=== PATIENT | female | born 1990 | race Two or more races ===

== ENCOUNTER → 2020-03-02 | Outpatient (CLI) | payer BC ==
[2020-03-02 08:53] LABS: Basophils # (auto) 0 10 ^3/uL (0-0.2); Basophils % (auto) 0.5 % (0.0-2.0); Eosinophils # (auto) 0.4 10 ^3/uL (0-0.8); Eosinophils % (auto) 3.8 % (0.0-7.0); Hematocrit 37.1 % (36.0-46.0); Hemoglobin 12.6 g/dL (12.2-16.2); Lymphocytes % (auto) 40.4 % (10.0-50.0); Mean Corpuscular Hemoglobin 29.6 pg (28.0-32.0); Mean Corpuscular Hgb Conc. 33.8 g/dL (32.0-36.0); Mean Corpuscular Volume 87.4 fL (80.0-100.0); Monocytes # (auto) 0.8 10 ^3/uL (0-1.3); Monocytes % (auto) 8.3 % (0.0-12.0); Neutrophils # (auto) 4.6 10 ^3/uL (1.6-8.6); Nucleated Red Blood Cells % 0.1 %; Platelet Count (auto) 341 10^3/uL (140-450); Red Blood Cells 4.25 10^6/uL (4.0-5.20); Red Cell Distribution Width 13.4 % (11.8-14.3); White Blood Cell 9.8 10^3/uL (4.4-10.8)
[2020-03-02 09:10] LABS: Urine Bacteria NONE SEEN /hpf (None Seen); Urine Blood Negative /uL (Negative); Urine Specific Gravity 1.007 (1.001-1.035); Urine WBC <1 /hpf (0 - 5)
[2020-03-02 09:26] LABS: Albumin 3.7 g/dL (3.4-5.0); Potassium 3.6 mmol/L (3.5-5.1)
[2020-03-02 09:31] LABS: BUN/Creatinine Ratio 18.4; Bilirubin, Total 0.4 mg/dL (0.2-1.0); Total Protein 8.4 g/dL (6.4-8.2)
== END | disposition home or self-care (01) ==
LOC: LAB 08:09
PROVIDERS: ATTEND Internal Medicine
DX: E28.2 Polycystic ovarian syndrome (principal); J30.2 Other seasonal allergic rhinitis
CPT/HCPCS: 36415; 80053; 80061; 81001; 83036; 84443; 85025

== ENCOUNTER → 2021-01-17 | Outpatient (CLI) | payer BC ==
[2021-01-17 15:01] LABS: Uric Acid 4.1 mg/dL (2.6-6.0)
[2021-01-17 15:10] LABS: CRP High Sensitivity 1.65 mg/dL (< 0.3)
== END | disposition home or self-care (01) ==
LOC: LAB 14:17
PROVIDERS: ATTEND Internal Medicine
DX: M25.579 Pain in unspecified ankle and joints of unspecified foot (principal)
CPT/HCPCS: 36415; 84550; 85652; 86141; 86225; 86235

== ENCOUNTER → 2021-03-03 | Outpatient (CLI) | payer BC ==
[2021-03-03 12:56] LABS: Urine WBC None Seen /hpf (0 - 5)
[2021-03-03 13:05] LABS: Basophils # (auto) 0 10 ^3/uL (0-0.2); Basophils % (auto) 0.5 % (0.0-2.0); Eosinophils # (auto) 0.2 10 ^3/uL (0-0.8); Eosinophils % (auto) 1.8 % (0.0-7.0); Hematocrit 39.8 % (36.0-46.0); Hemoglobin 13.1 g/dL (12.2-16.2); Lymphocytes # (auto) 3.9 10 ^3/uL (0.4-5.4); Lymphocytes % (auto) 37.1 % (10.0-50.0); Mean Corpuscular Hemoglobin 28.5 pg (28.0-32.0); Mean Corpuscular Volume 86.4 fL (80.0-100.0); Monocytes # (auto) 0.6 10 ^3/uL (0-1.3); Monocytes % (auto) 5.7 % (0.0-12.0); Neutrophils # (auto) 5.8 10 ^3/uL (1.6-8.6); Neutrophils % (auto) 54.9 % (37.0-80.0); Red Cell Distribution Width 13.6 % (11.8-14.3); White Blood Cell 10.6 10^3/uL (4.4-10.8)
[2021-03-03 13:13] LABS: Urine Bacteria NONE SEEN /hpf (None Seen); Urine Blood Negative /uL (Negative); Urine Specific Gravity 1.006 (1.001-1.035)
[2021-03-03 13:35] LABS: Potassium 3.7 mmol/L (3.5-5.1)
[2021-03-03 13:45] LABS: Albumin 3.8 g/dL (3.4-5.0); BUN/Creatinine Ratio 17.4; Bilirubin, Total 0.4 mg/dL (0.2-1.0); CRP High Sensitivity 1.04 mg/dL (< 0.3); Calcium 9.3 mg/dL (8.5-10.1)
[2021-03-03 14:13] LABS: Hepatitis B Surface Antigen Negative (Negative)
[2021-03-03 14:37] LABS: Hepatitis B Core Total AB Negative
== END | disposition home or self-care (01) ==
LOC: LAB 11:44
PROVIDERS: ATTEND Internal Medicine Rheumatology
DX: M05.79 Rheumatoid arthritis with rheumatoid factor of multiple sites without organ or systems involvement (principal); M32.10 Systemic lupus erythematosus, organ or system involvement unspecified
CPT/HCPCS: 36415; 80053; 81001; 82784; 84155; 84165; 85025; 85652; 86141; 86160; 86200; 86334; 86431; 86704; 87340

== ENCOUNTER → 2021-08-19 | Outpatient (CLI) | payer BC | END | disposition home or self-care (01) | LOC: LAB 09:47 | PROVIDERS: ATTEND Internal Medicine | DX: E23.7 Disorder of pituitary gland, unspecified (principal) | CPT/HCPCS: 36415; 82533; 84146; 84443 ==

== ENCOUNTER → 2021-11-10 | Outpatient (CLI) | payer BC ==
[2021-11-10 12:22] LABS: Basophils # (auto) 0.1 10 ^3/uL (0-0.2); Basophils % (auto) 0.6 % (0.0-2.0); Eosinophils # (auto) 0.3 10 ^3/uL (0-0.8); Eosinophils % (auto) 3.5 % (0.0-7.0); Hematocrit 36.8 % (36.0-46.0); Hemoglobin 12.3 g/dL (12.2-16.2); Lymphocytes # (auto) 3.4 10 ^3/uL (0.4-5.4); Lymphocytes % (auto) 37.2 % (10.0-50.0); Mean Corpuscular Hgb Conc. 33.4 g/dL (32.0-36.0); Mean Corpuscular Volume 86.9 fL (80.0-100.0); Monocytes # (auto) 0.7 10 ^3/uL (0-1.3); Monocytes % (auto) 7.3 % (0.0-12.0); Neutrophils # (auto) 4.8 10 ^3/uL (1.6-8.6); Neutrophils % (auto) 51.4 % (37.0-80.0); Nucleated Red Blood Cells % 0.1 %; Red Blood Cells 4.24 10^6/uL (4.0-5.20); Red Cell Distribution Width 13.8 % (11.8-14.3); White Blood Cell 9.3 10^3/uL (4.4-10.8)
== END | disposition home or self-care (01) ==
LOC: LAB 11:54
PROVIDERS: ATTEND Internal Medicine Rheumatology
DX: M05.79 Rheumatoid arthritis with rheumatoid factor of multiple sites without organ or systems involvement (principal)
CPT/HCPCS: 36415; 85025; 85652; 86141

== ENCOUNTER → 2022-01-05 | Outpatient (CLI) | payer BC ==
[2022-01-05 09:12] LABS: CRP High Sensitivity 0.68 mg/dL (< 0.3)
[2022-01-05 09:52] LABS: Folate (Folic Acid) 16.03 ng/mL (5.38-24)
== END | disposition home or self-care (01) ==
LOC: LAB 08:21
PROVIDERS: ATTEND Internal Medicine
DX: E78.5 Hyperlipidemia, unspecified (principal); M06.9 Rheumatoid arthritis, unspecified; M35.00 Sjogren syndrome, unspecified
CPT/HCPCS: 36415; 80061; 82306; 82607; 82746; 83036; 84207; 84443; 85652; 86141

== ENCOUNTER → 2022-01-14 | Outpatient (CLI) | payer BC ==
[2022-01-14 08:51] LABS: Basophils # (auto) 0.1 10 ^3/uL (0-0.2); Basophils % (auto) 0.6 % (0.0-2.0); Eosinophils # (auto) 0.6 10 ^3/uL (0-0.8); Eosinophils % (auto) 6.2 % (0.0-7.0); Hematocrit 35.4 % (36.0-46.0); Hemoglobin 11.6 g/dL (12.2-16.2); Lymphocytes # (auto) 4.2 10 ^3/uL (0.4-5.4); Lymphocytes % (auto) 46.9 % (10.0-50.0); Mean Corpuscular Hemoglobin 28.2 pg (28.0-32.0); Mean Corpuscular Hgb Conc. 32.7 g/dL (32.0-36.0); Monocytes # (auto) 0.8 10 ^3/uL (0-1.3); Monocytes % (auto) 9.1 % (0.0-12.0); Neutrophils # (auto) 3.4 10 ^3/uL (1.6-8.6); Neutrophils % (auto) 37.2 % (37.0-80.0); Red Blood Cells 4.12 10^6/uL (4.0-5.20); Red Cell Distribution Width 13.4 % (11.8-14.3); White Blood Cell 9.1 10^3/uL (4.4-10.8)
[2022-01-14 09:49] LABS: Anion Gap 6 (5-15); BUN/Creatinine Ratio 14.9; Blood Urea Nitrogen 13 mg/dL (7-18); Carbon Dioxide 26 mmol/L (21-32); Chloride 108 mmol/L (98-107); GFR African American 99 mL/min; GFR Non-African American 82 mL/min; Glucose 93 mg/dL (74-106); Potassium 3.9 mmol/L (3.5-5.1); Sodium 140 mmol/L (136-145)
[2022-01-14 09:50] LABS: Alanine Aminotransferase 22 U/L (13-56); Albumin 3.6 g/dL (3.4-5.0); Alkaline Phosphatase 74 U/L (45-117); Aspartate Aminotransferase 14 U/L (15-37); Bilirubin, Total 0.2 mg/dL (0.2-1.0); CRP High Sensitivity 0.7 mg/dL (< 0.3); Calcium 8.9 mg/dL (8.5-10.1); Total Protein 7.8 g/dL (6.4-8.2)
== END | disposition home or self-care (01) ==
LOC: LAB 08:34
PROVIDERS: ATTEND Internal Medicine Rheumatology
DX: M05.79 Rheumatoid arthritis with rheumatoid factor of multiple sites without organ or systems involvement (principal)
CPT/HCPCS: 36415; 80053; 85025; 85652; 86141

== ENCOUNTER → 2022-03-02 | Outpatient (CLI) | payer BC ==
[2022-03-02 08:56] LABS: Basophils # (auto) 0 10 ^3/uL (0-0.2); Basophils % (auto) 0.5 % (0.0-2.0); Eosinophils # (auto) 0.2 10 ^3/uL (0-0.8); Eosinophils % (auto) 3.2 % (0.0-7.0); Hematocrit 37.3 % (36.0-46.0); Hemoglobin 12.4 g/dL (12.2-16.2); Lymphocytes # (auto) 3.5 10 ^3/uL (0.4-5.4); Lymphocytes % (auto) 44.3 % (10.0-50.0); Mean Corpuscular Hemoglobin 28.5 pg (28.0-32.0); Mean Corpuscular Hgb Conc. 33.4 g/dL (32.0-36.0); Mean Corpuscular Volume 85.3 fL (80.0-100.0); Monocytes # (auto) 0.7 10 ^3/uL (0-1.3); Monocytes % (auto) 8.5 % (0.0-12.0); Neutrophils # (auto) 3.4 10 ^3/uL (1.6-8.6); Neutrophils % (auto) 43.5 % (37.0-80.0); Red Blood Cells 4.37 10^6/uL (4.0-5.20); Red Cell Distribution Width 13.7 % (11.8-14.3); White Blood Cell 7.9 10^3/uL (4.4-10.8)
[2022-03-02 10:23] LABS: Free T4 (Free Thyroxine) 1.05 ng/dL (0.89-1.76)
[2022-03-02 10:24] LABS: T3 Total 1.1 ng/mL (0.60-1.81)
== END | disposition home or self-care (01) ==
LOC: LAB 08:40
PROVIDERS: ATTEND Internal Medicine
DX: D64.9 Anemia, unspecified (principal); E03.9 Hypothyroidism, unspecified
CPT/HCPCS: 36415; 84439; 84443; 84480; 85025

== ENCOUNTER → 2022-04-01 | Outpatient (CLI) | payer BC | END | disposition home or self-care (01) | LOC: LAB 08:08 | PROVIDERS: ATTEND Internal Medicine | DX: E03.9 Hypothyroidism, unspecified (principal) | CPT/HCPCS: 36415; 84443; 86376; 86800 ==

== ENCOUNTER → 2022-06-17 | Outpatient (CLI) | payer BC ==
[2022-06-17 10:52] LABS: Basophils # (auto) 0.1 10 ^3/uL (0-0.2); Basophils % (auto) 0.6 % (0.0-2.0); Eosinophils # (auto) 0.3 10 ^3/uL (0-0.8); Eosinophils % (auto) 3.1 % (0.0-7.0); Hematocrit 37.9 % (36.0-46.0); Hemoglobin 12.8 g/dL (12.2-16.2); Lymphocytes % (auto) 35.5 % (10.0-50.0); Mean Corpuscular Hgb Conc. 33.6 g/dL (32.0-36.0); Mean Corpuscular Volume 86.3 fL (80.0-100.0); Monocytes # (auto) 0.9 10 ^3/uL (0-1.3); Monocytes % (auto) 8.1 % (0.0-12.0); Neutrophils % (auto) 52.7 % (37.0-80.0); Nucleated Red Blood Cells % 0.2 %; Red Cell Distribution Width 13.3 % (11.8-14.3); White Blood Cell 11.3 10^3/uL (4.4-10.8)
[2022-06-17 11:07] LABS: Albumin 3.7 g/dL (3.4-5.0); CRP High Sensitivity 0.94 mg/dL (< 0.3); Calcium 8.9 mg/dL (8.5-10.1); Potassium 3.8 mmol/L (3.5-5.1)
[2022-06-17 11:10] LABS: BUN/Creatinine Ratio 13.8; Bilirubin, Total 0.2 mg/dL (0.2-1.0); Total Protein 8.7 g/dL (6.4-8.2)
== END | disposition home or self-care (01) ==
LOC: LAB 10:25
PROVIDERS: ATTEND Internal Medicine Rheumatology
DX: M35.9 Systemic involvement of connective tissue, unspecified (principal); Z79.899 Other long term (current) drug therapy
CPT/HCPCS: 36415; 80053; 85025; 85652; 86141

== ENCOUNTER → 2022-07-01 | Outpatient (CLI) | payer BC | END | disposition home or self-care (01) | LOC: LAB 10:57 | PROVIDERS: ATTEND Internal Medicine | DX: E03.9 Hypothyroidism, unspecified (principal) | CPT/HCPCS: 36415; 84443 ==

== ENCOUNTER → 2022-09-02 | Outpatient (CLI) | payer BC ==
[2022-09-02 10:34] LABS: Basophils # (auto) 0 10 ^3/uL (0-0.2); Basophils % (auto) 0.3 % (0.0-2.0); Eosinophils # (auto) 0.6 10 ^3/uL (0-0.8); Eosinophils % (auto) 4.9 % (0.0-7.0); Hematocrit 37.3 % (36.0-46.0); Hemoglobin 12.3 g/dL (12.2-16.2); Lymphocytes # (auto) 4.9 10 ^3/uL (0.4-5.4); Lymphocytes % (auto) 41.9 % (10.0-50.0); Mean Corpuscular Volume 87.9 fL (80.0-100.0); Monocytes # (auto) 0.8 10 ^3/uL (0-1.3); Monocytes % (auto) 6.6 % (0.0-12.0); Neutrophils # (auto) 5.4 10 ^3/uL (1.6-8.6); Neutrophils % (auto) 46.3 % (37.0-80.0); Nucleated Red Blood Cells % 0.1 %; Red Blood Cells 4.24 10^6/uL (4.0-5.20); Red Cell Distribution Width 13.3 % (11.8-14.3); White Blood Cell 11.6 10^3/uL (4.4-10.8)
[2022-09-02 11:11] LABS: Follicle Stimulating Hormone 6.96 IU/L (SEE BELOW); Leuteinizing Hormone 10.5 IU/L
== END | disposition home or self-care (01) ==
LOC: LAB 10:12
PROVIDERS: ATTEND Obstetrics & Gynecology
DX: N92.6 Irregular menstruation, unspecified (principal)
CPT/HCPCS: 36415; 82670; 83001; 83002; 84403; 84443; 85025

== ENCOUNTER → 2022-10-21 | Outpatient (CLI) | payer BC ==
[2022-10-21 12:26] LABS: Basophils # (auto) 0 10 ^3/uL (0-0.2); Basophils % (auto) 0.4 % (0.0-2.0); Eosinophils # (auto) 0.2 10 ^3/uL (0-0.8); Eosinophils % (auto) 2.6 % (0.0-7.0); Hematocrit 37.9 % (36.0-46.0); Hemoglobin 12.9 g/dL (12.2-16.2); Lymphocytes % (auto) 32.9 % (10.0-50.0); Mean Corpuscular Hemoglobin 29.7 pg (28.0-32.0); Mean Corpuscular Volume 87.2 fL (80.0-100.0); Monocytes # (auto) 0.8 10 ^3/uL (0-1.3); Neutrophils # (auto) 5.1 10 ^3/uL (1.6-8.6); Neutrophils % (auto) 55.1 % (37.0-80.0); Red Blood Cells 4.34 10^6/uL (4.0-5.20); Red Cell Distribution Width 13.3 % (11.8-14.3); White Blood Cell 9.2 10^3/uL (4.4-10.8)
[2022-10-21 12:31] LABS: Urine Bacteria NONE SEEN /hpf (None Seen); Urine Blood Negative /uL (Negative); Urine Specific Gravity 1.017 (1.001-1.035); Urine WBC 1 /hpf (0 - 5)
[2022-10-21 12:52] LABS: Albumin 3.7 g/dL (3.4-5.0); Calcium 8.7 mg/dL (8.5-10.1)
[2022-10-21 12:56] LABS: BUN/Creatinine Ratio 16.7 (10.0-20.0); Bilirubin, Total 0.5 mg/dL (0.2-1.0); CRP High Sensitivity 0.79 mg/dL (< 0.3); Total Protein 8.5 g/dL (6.4-8.2)
== END | disposition home or self-care (01) ==
LOC: LAB 11:52
PROVIDERS: ATTEND Internal Medicine
DX: D64.9 Anemia, unspecified (principal); M35.9 Systemic involvement of connective tissue, unspecified; Z79.84 Long term (current) use of oral hypoglycemic drugs
CPT/HCPCS: 36415; 80053; 81001; 85025; 85652; 86141

== ENCOUNTER → 2022-11-16 | Outpatient (CLI) | payer BC ==
[2022-11-16 09:20] LABS: Basophils # (auto) 0 10 ^3/uL (0-0.2); Basophils % (auto) 0.4 % (0.0-2.0); Eosinophils # (auto) 0.3 10 ^3/uL (0-0.8); Hematocrit 37.9 % (36.0-46.0); Hemoglobin 12.7 g/dL (12.2-16.2); Lymphocytes # (auto) 3.7 10 ^3/uL (0.4-5.4); Lymphocytes % (auto) 42.2 % (10.0-50.0); Mean Corpuscular Hemoglobin 29.4 pg (28.0-32.0); Mean Corpuscular Hgb Conc. 33.5 g/dL (32.0-36.0); Mean Corpuscular Volume 87.8 fL (80.0-100.0); Monocytes # (auto) 0.6 10 ^3/uL (0-1.3); Monocytes % (auto) 7.1 % (0.0-12.0); Neutrophils # (auto) 4.2 10 ^3/uL (1.6-8.6); Neutrophils % (auto) 47.3 % (37.0-80.0); Nucleated Red Blood Cells % 0.1 %; Red Blood Cells 4.31 10^6/uL (4.0-5.20); Red Cell Distribution Width 13.5 % (11.8-14.3); White Blood Cell 8.8 10^3/uL (4.4-10.8)
[2022-11-16 09:21] LABS: Calcium 8.9 mg/dL (8.5-10.1); Potassium 3.8 mmol/L (3.5-5.1)
[2022-11-16 09:25] LABS: BUN/Creatinine Ratio 16.7 (10.0-20.0); CRP High Sensitivity 0.58 mg/dL (< 0.3)
== END | disposition home or self-care (01) ==
LOC: LAB 08:34
PROVIDERS: ATTEND Internal Medicine Rheumatology
DX: M32.10 Systemic lupus erythematosus, organ or system involvement unspecified (principal); Z79.899 Other long term (current) drug therapy
CPT/HCPCS: 36415; 80048; 83516; 85025; 85652; 86141; 86225; 86235

== ENCOUNTER → 2023-10-04 | Outpatient (CLI) | payer BC ==
[2023-10-04 09:26] LABS: Alanine Aminotransferase 17 U/L (7-40); Albumin 4.5 g/dL (3.2-4.8); Alkaline Phosphatase 83 U/L (46-116); Anion Gap 7 (5-15); Aspartate Aminotransferase 20 U/L (13-40); Blood Urea Nitrogen 10 mg/dL (9-23); Calcium 9.7 mg/dL (8.5-10.1); Carbon Dioxide 27 mmol/L (20-30); Chloride 103 mmol/L (98-107); Glucose 92 mg/dL (74-106); Potassium 3.8 mmol/L (3.5-5.1); Sodium 137 mmol/L (136-145)
[2023-10-04 09:27] LABS: Bilirubin, Total 0.5 mg/dL (0.2-1.0); Thyroid Stimulating Hormone 2.04 uIU/mL (0.55-4.78); Total Protein 8.1 g/dL (5.7-8.2)
[2023-10-04 09:31] LABS: Beta HCG, Quantitative 0.9 mIU/mL (1.5-4.2)
[2023-10-04 11:07] LABS: Free T4 (Free Thyroxine) 0.98 ng/dL (0.89-1.76); T3 Total 1.07 ng/mL (0.60-1.81)
[2023-10-04 11:08] LABS: Follicle Stimulating Hormone 8.58 IU/L (SEE BELOW)
[2023-10-04 11:09] LABS: Leuteinizing Hormone 14.5 IU/L; Prolactin 18.08 ng/mL (2.8-29.2)
[2023-10-05 08:06] LABS: Insulin 29.5 uIU/mL (2.6-24.9)
[2023-10-05 22:06] LABS: Chlamydia Trachomatis, NAA Negative (Negative); Neisseria gonorrhoeae, NAA Negative (Negative)
[2023-10-10 19:06] LABS: Dehydroepiandrosterone 583 ng/dL (.)
== END | disposition home or self-care (01) ==
LOC: LAB 08:07
PROVIDERS: ATTEND Obstetrics & Gynecology
DX: N93.9 Abnormal uterine and vaginal bleeding, unspecified (principal); N97.8 Female infertility of other origin
CPT/HCPCS: 36415; 80053; 82626; 82670; 83001; 83002; 83036; 83525; 84144; 84146; 84403; 84439; 84443; 84480; 84702

== ENCOUNTER → 2023-11-01 | Outpatient (CLI) | payer BC ==
[2023-11-01 11:02] LABS: Basophils # (auto) 0 10 ^3/uL (0-0.2); Basophils % (auto) 0.4 % (0.0-2.0); Eosinophils # (auto) 0.4 10 ^3/uL (0-0.8); Eosinophils % (auto) 3.7 % (0.0-7.0); Hematocrit 39.3 % (36.0-46.0); Hemoglobin 13.3 g/dL (12.2-16.2); Lymphocytes # (auto) 4.2 10 ^3/uL (0.4-5.4); Lymphocytes % (auto) 38.3 % (10.0-50.0); Mean Corpuscular Hemoglobin 30.1 pg (28.0-32.0); Mean Corpuscular Hgb Conc. 33.9 g/dL (32.0-36.0); Mean Corpuscular Volume 88.9 fL (80.0-100.0); Monocytes # (auto) 0.7 10 ^3/uL (0-1.3); Monocytes % (auto) 6.8 % (0.0-12.0); Neutrophils # (auto) 5.5 10 ^3/uL (1.6-8.6); Neutrophils % (auto) 50.8 % (37.0-80.0); Red Blood Cells 4.42 10^6/uL (4.0-5.20); White Blood Cell 10.9 10^3/uL (4.4-10.8)
[2023-11-01 11:44] LABS: Alanine Aminotransferase 20 U/L (7-40); Alkaline Phosphatase 90 U/L (46-116); Anion Gap 4 (5-15); BUN/Creatinine Ratio 12.3 (10.0-20.0); Blood Urea Nitrogen 10 mg/dL (9-23); Calcium 9.9 mg/dL (8.5-10.1); Carbon Dioxide 28 mmol/L (20-30); Chloride 104 mmol/L (98-107); Glucose 89 mg/dL (74-106); Potassium 4.4 mmol/L (3.5-5.1); Sodium 136 mmol/L (136-145)
[2023-11-01 11:45] LABS: CRP High Sensitivity 0.97 mg/dL (<1.0)
[2023-11-01 11:46] LABS: Albumin 4.6 g/dL (3.2-4.8); Aspartate Aminotransferase 14 U/L (13-40); Bilirubin, Total 0.5 mg/dL (0.2-1.0); Total Protein 8.2 g/dL (5.7-8.2)
[2023-11-01 12:02] LABS: Erythrocyte Sedimentation Rate 35 mm/hr (0-20)
== END | disposition home or self-care (01) ==
LOC: LAB 10:40
PROVIDERS: ATTEND Internal Medicine Rheumatology
DX: M35.9 Systemic involvement of connective tissue, unspecified (principal); Z79.899 Other long term (current) drug therapy
CPT/HCPCS: 36415; 80053; 85025; 85652; 86141

== ENCOUNTER → 2023-11-29 | Outpatient (CLI) | payer BC ==
[2023-11-29 11:01] LABS: Basophils # (auto) 0 10 ^3/uL (0-0.2); Basophils % (auto) 0.3 % (0.0-2.0); Eosinophils # (auto) 0.2 10 ^3/uL (0-0.8); Eosinophils % (auto) 3.3 % (0.0-7.0); Hematocrit 38.4 % (36.0-46.0); Lymphocytes # (auto) 3.7 10 ^3/uL (0.4-5.4); Lymphocytes % (auto) 49.3 % (10.0-50.0); Mean Corpuscular Hemoglobin 30.1 pg (28.0-32.0); Mean Corpuscular Hgb Conc. 33.9 g/dL (32.0-36.0); Mean Corpuscular Volume 88.6 fL (80.0-100.0); Monocytes # (auto) 0.6 10 ^3/uL (0-1.3); Monocytes % (auto) 8.5 % (0.0-12.0); Neutrophils # (auto) 2.9 10 ^3/uL (1.6-8.6); Neutrophils % (auto) 38.6 % (37.0-80.0); Nucleated Red Blood Cells % 0.1 %; Red Blood Cells 4.33 10^6/uL (4.0-5.20); Red Cell Distribution Width 13.2 % (11.8-14.3); White Blood Cell 7.5 10^3/uL (4.4-10.8)
[2023-11-29 11:31] LABS: Erythrocyte Sedimentation Rate 46 mm/hr (0-20)
[2023-11-29 12:13] LABS: Alanine Aminotransferase 25 U/L (7-40); Albumin 4.6 g/dL (3.2-4.8); Alkaline Phosphatase 79 U/L (46-116); Anion Gap 9 (5-15); Aspartate Aminotransferase 16 U/L (13-40); BUN/Creatinine Ratio 14.5 (10.0-20.0); Bilirubin, Total 0.5 mg/dL (0.2-1.0); Blood Urea Nitrogen 11 mg/dL (9-23); Calcium 9.9 mg/dL (8.5-10.1); Carbon Dioxide 23 mmol/L (20-30); Chloride 107 mmol/L (98-107); Cholesterol 193 mg/dL (< 200); Glucose 94 mg/dL (74-106); HDL Cholesterol 40 mg/dL (40-59); LDL Cholesterol 137 mg/dL (< 100); Potassium 4.1 mmol/L (3.5-5.1); Sodium 139 mmol/L (136-145); Total Protein 8.1 g/dL (5.7-8.2); Triglycerides 105 mg/dL (< 150)
[2023-11-29 12:21] LABS: CRP High Sensitivity 1.53 mg/dL (<1.0)
== END | disposition home or self-care (01) ==
LOC: LAB 10:39
PROVIDERS: ATTEND Internal Medicine
DX: K76.0 Fatty (change of) liver, not elsewhere classified (principal); R00.2 Palpitations; E03.9 Hypothyroidism, unspecified
CPT/HCPCS: 36415; 80053; 80061; 82533; 83036; 84146; 85025; 85652; 86141

== ENCOUNTER 2024-01-11 13:44 | Emergency (ER) | payer BC ==
[~2024-01-11] VITALS: Ht 165.1 cm; Wt 77.1 kg
[2024-01-11 15:15] VITALS: TEMP 99; O2SAT 98
[2024-01-11] MEDS: SODIUM CHLORIDE 0.9% 1,000 ML IV ONE (15:39)
[2024-01-11 15:46] LABS: Urine WBC None Seen /hpf (0 - 5)
[2024-01-11] MEDS: ONDANSETRON HCL 4 MG/2 ML VIAL IV ONE (15:54)
[2024-01-11] MEDS: MORPHINE SULFATE 4 MG/ML SYR/VIAL IV ONE (15:54)
[2024-01-11 16:03] LABS: Basophils # (auto) 0 10 ^3/uL (0-0.2); Basophils % (auto) 0.3 % (0.0-2.0); Eosinophils # (auto) 0.3 10 ^3/uL (0-0.8); Hematocrit 37.7 % (36.0-46.0); Hemoglobin 12.7 g/dL (12.2-16.2); Lymphocytes # (auto) 3.8 10 ^3/uL (0.4-5.4); Lymphocytes % (auto) 37.4 % (10.0-50.0); Mean Corpuscular Hgb Conc. 33.8 g/dL (32.0-36.0); Mean Corpuscular Volume 88.8 fL (80.0-100.0); Monocytes # (auto) 0.7 10 ^3/uL (0-1.3); Monocytes % (auto) 6.6 % (0.0-12.0); Neutrophils # (auto) 5.3 10 ^3/uL (1.6-8.6); Neutrophils % (auto) 52.7 % (37.0-80.0); Nucleated Red Blood Cells % 0.1 %; Platelet Count (auto) 322 10^3/uL (140-450); Red Blood Cells 4.25 10^6/uL (4.0-5.20); Red Cell Distribution Width 13.9 % (11.8-14.3)
[2024-01-11 16:11] VITALS: BP 91/62; PULSE 58; RESP 16
[2024-01-11 16:18] LABS: Urine Bacteria FEW /hpf (None Seen); Urine Blood Negative /uL (Negative); Urine Clarity Clear (Clear); Urine Color Colorless (Yellow); Urine Protein, UAD Negative (Negative); Urine Specific Gravity 1.007 (1.001-1.035); Urine Urobilinogen Normal (Negative)
[2024-01-11 16:21] LABS: Alanine Aminotransferase 22 U/L (7-40); Albumin 4.6 g/dL (3.2-4.8); Alkaline Phosphatase 84 U/L (46-116); Anion Gap 6 (5-15); Aspartate Aminotransferase 19 U/L (13-40); BUN/Creatinine Ratio 9.4 (10.0-20.0); Bilirubin, Total 0.3 mg/dL (0.2-1.0); Blood Urea Nitrogen 8 mg/dL (9-23); Calcium 9.6 mg/dL (8.7-10.4); Carbon Dioxide 27 mmol/L (20-30); Chloride 105 mmol/L (98-107); Glucose 76 mg/dL (74-106); Lipase 50 U/L (12-53); Potassium 3.8 mmol/L (3.5-5.1); Sodium 138 mmol/L (136-145); Total Protein 8.5 g/dL (5.7-8.2)
== END 2024-01-11 17:19 | disposition home or self-care (01) ==
LOC: ER 13:44
DX: R10.11 Right upper quadrant pain (principal); M25.511 Pain in right shoulder; E03.9 Hypothyroidism, unspecified
CPT/HCPCS: 36415; 76705; 80053; 81001; 81025; 83690; 85025; 96374; 96375; 99285; J2270; J2405; J7030

== ENCOUNTER → 2024-01-20 | Outpatient (CLI) | payer BC ==
[2024-01-20 09:49] LABS: Basophils # (auto) 0 10 ^3/uL (0-0.2); Basophils % (auto) 0.4 % (0.0-2.0); Eosinophils # (auto) 0.3 10 ^3/uL (0-0.8); Eosinophils % (auto) 3.2 % (0.0-7.0); Hematocrit 38.2 % (36.0-46.0); Hemoglobin 13.1 g/dL (12.2-16.2); Lymphocytes # (auto) 4.1 10 ^3/uL (0.4-5.4); Lymphocytes % (auto) 39.3 % (10.0-50.0); Mean Corpuscular Hemoglobin 30.8 pg (28.0-32.0); Mean Corpuscular Hgb Conc. 34.3 g/dL (32.0-36.0); Mean Corpuscular Volume 89.8 fL (80.0-100.0); Monocytes # (auto) 0.8 10 ^3/uL (0-1.3); Monocytes % (auto) 7.9 % (0.0-12.0); Neutrophils # (auto) 5.2 10 ^3/uL (1.6-8.6); Neutrophils % (auto) 49.2 % (37.0-80.0); Platelet Count (auto) 347 10^3/uL (140-450); Red Blood Cells 4.25 10^6/uL (4.0-5.20); Red Cell Distribution Width 13.6 % (11.8-14.3); White Blood Cell 10.5 10^3/uL (4.4-10.8)
[2024-01-20 10:19] LABS: Erythrocyte Sedimentation Rate 30 mm/hr (0-20)
[2024-01-20 10:35] LABS: Protein, Urine 22.7 mg/dL (0.0-11.9)
[2024-01-20 10:37] LABS: Creatinine, Urine 180.31 mg/dL (30.0-125.0); Urine Protein/Creatinine Ratio 0.13
[2024-01-20 10:38] LABS: Alanine Aminotransferase 23 U/L (7-40); Albumin 4.5 g/dL (3.2-4.8); Alkaline Phosphatase 79 U/L (46-116); Anion Gap 6 (5-15); Aspartate Aminotransferase 20 U/L (13-40); BUN/Creatinine Ratio 13.3 (10.0-20.0); Blood Urea Nitrogen 11 mg/dL (9-23); Calcium 9.8 mg/dL (8.7-10.4); Carbon Dioxide 26 mmol/L (20-30); Chloride 105 mmol/L (98-107); Glucose 89 mg/dL (74-106); Sodium 137 mmol/L (136-145)
[2024-01-20 10:39] LABS: Bilirubin, Total 0.5 mg/dL (0.2-1.0); Total Protein 8.2 g/dL (5.7-8.2)
[2024-01-21 08:06] LABS: Complement C3 166 mg/dL (82-167)
[2024-01-21 10:07] LABS: Anti-dsDNA Antibody 1 IU/mL (0-9)
== END | disposition home or self-care (01) ==
LOC: LAB 09:04
PROVIDERS: ATTEND Internal Medicine Rheumatology
DX: M32.10 Systemic lupus erythematosus, organ or system involvement unspecified (principal); Z79.899 Other long term (current) drug therapy
CPT/HCPCS: 36415; 80053; 82570; 84156; 85025; 85652; 86141; 86160; 86225

== ENCOUNTER 2024-04-03 10:40 | Emergency (ER) | payer BC ==
[~2024-04-03] VITALS: Ht 160 cm; Wt 76.5 kg
--- NOTE | 2024-04-03 10:58 | ED.PDOC ---
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 Pt states she is currently 13wks and began to spot last night with mild cramps. . Pt denies dysuria. Pt is currently taking Levothyroxine and vitamins. No known allergies. Chief Complaint: Vaginal Bleed Time Seen by MD: 10:52 Reviewed Notes: Medications, Allergies Allergies: Coded Allergies: NO KNOWN ALLERGIES (Unverified , 01/11/24) Information Source: Patient Mode of Arrival: Ambulatory Timing: Hours Severity: Mild Vaginal Lesions: None Bleeding Quality: Bright Red Vaginal Mass: None Onset Of Mass/Bleeding: Spontaneous Last Consensual Joes: Unknown Control: None History of: Current Blood Type: Unknown Associated Signs and Symptoms: Vaginal Bleeding, Cramping Past Medical History PAST MEDICAL HISTORY: Thyroid Surgical History: Denies all surgeries LINING SEWER History: Denies all LINING SEWER Hx Family History Family History: Reviewed,noncontributory to illness Social History Smoker: Non-Smoker Alcohol: Denies ETOH Use Drugs: Denies Drug Use Lives In: Home Constitutional: denies: chills, diaphoresis, fatigue, fever, malaise, sweats, weakness, others EENTM: denies: blurred vision, double vision, ear bleeding, ear discharge, ear drainage, ear pain, ear ringing, eye pain, eye redness, hearing loss, mouth pain, mouth swelling, nasal discharge, nose bleeding, nose congestion, nose pain, photophobia, tearing, throat pain, throat swelling, voice changes, others Respiratory: denies: cough, hemoptysis, orthopnea, SOB at rest, shortness of breath, SOB with excertion, stridor, wheezing, others Cardiovascular: denies: chest pain, dizzy spells, diaphoresis, Dyspnea on exertion, edema, irregular heart beat, left arm pain, lightheadedness, palpitations, PND, syncope, others Gastrointestinal: denies: abdomen distended, abdominal pain, blood streaked bowels, constipated, diarrhea, dysphagia, difficulty swallowing, hematemesis, melena, nausea, poor appetite, poor fluid intake, rectal bleeding, rectal pain, vomiting, others Genitourinary: reports: abnormal vagina bleeding, ; denies: burning, dyspareunia, dysuria, flank pain, frequency, hematuria, incontinence, pain, vagina discharge, urgency, others Neurological: denies: dizziness, fainting, headache, left sided numbness, left sided weakness, numbness, paresthesia, pre-existing deficit, right sided numbness, right sided weakness, seizure, speech problems, tingling, tremors, weakness, others Musculoskeletal: denies: back pain, gout, joint pain, joint swelling, muscle pain, muscle stiffness, neck pain, others Integumetry: denies: bruises, change in color, change in hair/nails, dryness, laceration, lesions, lumps, rash, wounds, others Allergic/Immunocompromised: denies: Difficulty Healing, Frequent Infections, Hives, Itching, others Hematologic/Lymphatic: denies: anemia, blood clots, easy bleeding, easy brui sing, swollen glands, others Endocrine: denies: excessive hunger, excessive sweating, excessive thirst, ex cessive urination, flushing, intolerance to cold, intolerance to heat, unexplained weight gain, unexplained weight loss, others Psychiatric: denies: anxiety, bipolar disorder, depression, hopeless, panic disorder, schizophrenia, sleepless, suicidal, others All Other Systems: Reviewed and Negative Physical Exam General Appearance: Moderate Distress, Normal HEENT: Normal ENT Inspection, Pharynx Normal, TMs Normal Neck: Full Range of Motion, Non-Tender, Normal, Normal Inspection Respiratory: Chest Non-Tender, Lungs Clear, No Accessory Muscle Use, No Respiratory Distress, Normal Breath Sounds Cardiovascular: No Edema, No JVD, No Murmur, No Gallop, Normal Peripheral Pulses, Regular Rate/Rhythm Breast Exam: Deferred Gastrointestinal: No Organomegaly, Non Tender, No Pulsatile Mass, Normal Bowel Sounds, Soft Genitalia: Deferred Pelvic: Deferred Rectal: Deferred Extremities: No calf tenderness, Normal capillary refill, Normal inspection, Normal range of motion, Non-tender, No pedal edema Musculoskeletal : Apperance: Normal Neurologic: Alert, human resources communications manager II-XII nml as Tested, No Motor Deficits, Normal Affect, Normal Mood, No Sensory Deficits Cerebellar Function: Normal Reflexes: Normal Skin: Dry, Normal Color, Warm Peripheral Pulses: 3+ Radial (R), 3+ Radial (L) Lymphatic: No Adenopathy Was a procedure done? Was a procedure done?: No Differential Diagnosis (LINING SEWER) Vaginal Bleeding: - Complete, - Incomplete, - Inevitable, - Missed, - Threatened X-Ray, Labs, Meds, VS Vital Signs Date Time Temp Pulse Resp B/P (MAP) Pulse Ox O2 Delivery O2 Flow Rate FiO2 04/03/24 10:51 76.5 77 16 129/78 (95) 97 Lab Test 04/03/24 11:04 04/03/24 10:50 Range/Units Beta HCG, Quantitative 62625.1 H 1.5-4.2 mIU/mL Urine Color Yellow Yellow Urine Clarity Turbid H Clear Urine pH 6.5 5.0-9.0 Urine Specific [place] 1.014 1.001-1.035 Urine Protein Negative Negative Urine Ketones Negative Negative Urine Blood Negative Negative /uL Urine Nitrite Negative Negative Urine Bilirubin Negative Negative Urine Urobilinogen Normal Negative mg/dL Urine Leukocyte Esterase 2+ Negative /uL Urine RBC 2 0 - 4 /hpf Urine WBC 8 0 - 5 /hpf Urine Squamous Epithelial Cells Few <5 /hpf Urine Bacteria Few H None Seen /hpf Urine Hyaline Casts Few 0 - 2 /lpf Urine Glucose Normal Normal mg/dL [place] [address] Ph: [phone] DIAGNOSTIC IMAGING Diagnostic Imaging Report : [id number] Signed PATIENT: KIARA FLEMING ACCT: [id number] UNIT: [id number] : 1990 LOC: ER ROOM / BED: / AGE / SEX: 33 / F ADM STATUS: REG ER SERVICE 1056 ORDERING PHYSICIAN: KEIRY WREN MD PROCEDURE(s): OB4US - OB ULTRASOUND COMP LESS 14WKS REASON: spotting ORDER NUMBER(s): [id number], ACCESSION NUMBER(s): [id number] OB ULTRASOUND <14 WEEKS: HISTORY: spotting TECHNIQUE: Multiple real-time grayscale sonographic images of the pelvis with duplex Doppler color flow, spectral and M-mode analysis. TRANSDUCERS: Transabdominal COMPARISON: None FINDINGS: The uterus measures 13.3 x 8.2 x 9.3 cm Neither ovary is clearly visualized in this examination. IUP single fetus at 13 weeks, 2 days average ultrasound age based on mean crown-rump length of 7.1 cm and gestational sac size of 6.6 cm heart rate detected at 164 beats per minute. Estimated date of delivery: October 07, 2024 Tatum-gestational space: Placenta is visualized with no acute abnormalities identified. IMPRESSION: 1. IUP single live fetus 13 weeks 2 days AUA corresponding to an JOSE of October 07, 2024. 2. No acute abnormality detected. ATED BY: JAYLIN RAMIREZ MD DICTATED DATE/TIME: 04/03/24 1140 SIGNED BY: JAYLIN RAMIREZ MD SIGNED DATE/TIME: 04/03/24 1140 CC: Patient alert. Complaining of spotting. She is . Vitals stable. This is her 1st . She is taking her vitamins. Abdomen is soft. No sign of any distress. Reviewed her history. Thyroid disorder. Explained to the patient. Was told to take her vitamins. Was told to follow up with her OBGYN. Was told to follow up with her primary care physician. Was told to come back if there is any problem. Time of 1ST Reevaluation: 11:22 Reevaluation 1ST: Unchanged Patient Education/Counseling: Diagnosis, Treatment Family Education/Counseling: No Family Present Departure 1 Departure Time of Disposition: 11:00 Impression: Primary Impression: Normal Qualified Codes: Z34.90 - Encounter for supervision of normal , unspecified, unspecified trimester Additional Impression: UTI (urinary tract infection) Qualified Codes: N30.00 - Acute cystitis without hematuria Disposition: 01 HOME / SELF CARE / HOMELESS Condition: Good e-Prescriptions Cephalexin (KEFLEX CAPSULE) 250 Mg Cp 250 MG PO QID for 7 Days, #28 BOTTLE Prov: KEIRY WREN MD 04/03/24 Discharged With: Self Critical Care Note Critical Care Time?: No Stability Stability form required: No Heart Score Heart Score: Heart Score Response (Comments) Value History N/A 0 EKG N/A 0 Age N/A 0 Risk Factors N/A 0 Troponin N/A 0 Total 0 I personally scribed for KEIRY WREN MD ([email or web address]) on 04/03/24 at 10:58. Electronically submitted by Noris Honeycutt ([email or web address]). I personally scribed for KEIRY WREN MD ([email or web address]) on 04/03/24 at 11:48. Electronically submitted by Noris Honeycutt ([email or web address]). KEIRY WREN MD Apr 03, 2024 10:58
[2024-04-03 11:10] LABS: Urine Bacteria FEW /hpf (None Seen); Urine Blood Negative /uL (Negative); Urine Clarity Turbid (Clear); Urine Color Yellow (Yellow); Urine Hyaline Cast FEW /lpf (0 - 2); Urine Protein, UAD Negative (Negative); Urine Specific Gravity 1.014 (1.001-1.035); Urine Urobilinogen Normal (Negative); Urine WBC 8 /hpf (0 - 5); Urine pH 6.5 (5.0-9.0)
--- NOTE | 2024-04-03 11:43 | DVH ---
OB ULTRASOUND <14 WEEKS: HISTORY: spotting TECHNIQUE: Multiple real-time grayscale sonographic images of the pelvis with duplex Doppler color f low, spectral and M-mode analysis. TRANSDUCERS: Transabdominal COMPARISON: None FINDINGS: The uterus measures 13.3 x 8.2 x 9.3 cm Neither ovary is clearly visualized in this examination. IUP single fetus at 13 weeks, 2 days average ultrasound age based on mean crown-rump length of 7.1 c m and gestational sac size of 6.6 cm heart rate detected at 164 beats per minute. Estimated date of delivery: October 07, 2024 Tatum-gestational space: Placenta is visualized with no acute abnormalities identified. IMPRESSION: 1. IUP single live fetus 13 weeks 2 days AUA corresponding to an JOSE of October 07, 2024. 2. No acute abnormality detected.
[2024-04-03] MEDS ORDERED: CEPH250C PO (12:30)
[2024-04-03 12:50] VITALS: BP 118/70; TEMP 98
[2024-04-03 12:52] VITALS: PULSE 70; RESP 16; O2SAT 99
== END 2024-04-03 12:54 | disposition home or self-care (01) ==
LOC: ER 10:40
DX: O20.9 Hemorrhage in early pregnancy, unspecified (principal); R10.2 Pelvic and perineal pain; O23.41 Unspecified infection of urinary tract in pregnancy, first trimester; N39.0 Urinary tract infection, site not specified; O26.891 Other specified pregnancy related conditions, first trimester; E07.9 Disorder of thyroid, unspecified; Z3A.13 13 weeks gestation of pregnancy; Z98.890 Other specified postprocedural states
CPT/HCPCS: 36415; 76801; 81001; 84702

== ENCOUNTER → 2024-05-04 | Outpatient (CLI) | payer BC ==
[~2024-05-04] MED LIST: CEPH250C PO
[2024-05-04 10:52] LABS: Free T3 2.91 pg/mL (2.3-4.2); Free T4 (Free Thyroxine) 0.85 ng/dL (0.89-1.76)
== END | disposition home or self-care (01) ==
LOC: LAB 10:00
PROVIDERS: ATTEND Obstetrics & Gynecology
DX: Z34.00 Encounter for supervision of normal first pregnancy, unspecified trimester (principal); Z3A.00 Weeks of gestation of pregnancy not specified
CPT/HCPCS: 36415; 84439; 84443; 84481

== ENCOUNTER → 2024-05-26 | Outpatient (CLI) | payer BC ==
[2024-05-26 10:50] LABS: CRP High Sensitivity 0.77 mg/dL (<1.0)
[2024-05-26 13:06] LABS: Erythrocyte Sedimentation Rate 52 mm/hr (0-20)
== END | disposition home or self-care (01) ==
LOC: LAB 09:44
PROVIDERS: ATTEND Internal Medicine
DX: E06.3 Autoimmune thyroiditis (principal); R00.2 Palpitations; N91.5 Oligomenorrhea, unspecified
CPT/HCPCS: 36415; 80061; 83036; 83525; 85652; 86141

== ENCOUNTER → 2024-06-01 | Outpatient (CLI) | payer BC ==
[2024-06-01 10:25] LABS: Basophils # (auto) 0 10 ^3/uL (0-0.2); Basophils % (auto) 0.2 % (0.0-2.0); Eosinophils # (auto) 0.2 10 ^3/uL (0-0.8); Eosinophils % (auto) 1.7 % (0.0-7.0); Hematocrit 33.2 % (36.0-46.0); Hemoglobin 11.5 g/dL (12.2-16.2); Lymphocytes # (auto) 2.5 10 ^3/uL (0.4-5.4); Lymphocytes % (auto) 23.7 % (10.0-50.0); Mean Corpuscular Hemoglobin 31.2 pg (28.0-32.0); Mean Corpuscular Hgb Conc. 34.8 g/dL (32.0-36.0); Mean Corpuscular Volume 89.9 fL (80.0-100.0); Monocytes # (auto) 0.9 10 ^3/uL (0-1.3); Monocytes % (auto) 8.1 % (0.0-12.0); Neutrophils # (auto) 6.9 10 ^3/uL (1.6-8.6); Neutrophils % (auto) 66.3 % (37.0-80.0); Platelet Count (auto) 323 10^3/uL (140-450); Red Blood Cells 3.69 10^6/uL (4.0-5.20); Red Cell Distribution Width 13.3 % (11.8-14.3); White Blood Cell 10.5 10^3/uL (4.4-10.8)
[2024-06-01 10:43] LABS: % Iron Saturation 24.4 % (15-50)
== END | disposition home or self-care (01) ==
LOC: LAB 09:55
PROVIDERS: ATTEND Internal Medicine
DX: K76.0 Fatty (change of) liver, not elsewhere classified (principal); R00.2 Palpitations
CPT/HCPCS: 36415; 82728; 83540; 83550; 85025

== ENCOUNTER → 2024-07-27 | Outpatient (CLI) | payer BC | END | disposition home or self-care (01) | LOC: LAB 12:03 | DX: R94.6 Abnormal results of thyroid function studies (principal) | CPT/HCPCS: 36415; 84439; 84443 ==

== ENCOUNTER 2024-08-15 06:25 | Observation (INO) | payer BC ==
[2024-08-15] MEDS ORDERED: LEVO25TA6 PO (09:09)
[2024-08-15] MEDS ORDERED: ASPI-543 PO (09:09)
[2024-08-15] MEDS ORDERED: PREN-96 PO (09:09)
[2024-08-15] MEDS ORDERED: FAMO20TA10 PO (09:09)
--- NOTE | 2024-08-15 09:16 | DVH ---
Procedure: US BIOPHYSICAL PROFILE 08/15/2024 08:43 AM Indication: GDM/HASHIMOTOS Comparison: None Technique: Sonogram of gravid uterus utilizing grayscale and color techniques. FINDINGS: Single living intrauterine gestation. Presentation: Cephalic Placenta: Anterior heart rate: 140 bpm AARON: 18.6 cm, DVP: 7.3 cm Maternal cervix: Not visualized Biophysical Profile: breathing score: 2 movement score: 2 tone: 2 Quantitative AARON score: 2 Total score: 8/8 IMPRESSION: 1. Single living as above. 2. Biophysical profile score: 8/8.
--- NOTE | 2024-08-15 16:04 | DVHDS2 ---
Physician Discharge Progress N Final Diagnosis: GDM Hypothyroidism Operations or Procedures: Operations or Procedures NST/BPP AARON Commentary: Commentary PATIENT: KIARA FLEMING ACCT: [id number] UNIT: [id number] : 1990 LOC: [facility] ROOM / BED: TRIAGE1 / A AGE / SEX: 34 / F ADM STATUS: ADM IN SERVICE 9 ORDERING PHYSICIAN: JOSEPH JAMA DO PROCEDURE(s): BPP - BIOPHYSICAL PROFILE REASON: GDM/HASHIMOTOS ORDER NUMBER(s): [id number], ACCESSION NUMBER(s): [id number] Procedure: US BIOPHYSICAL PROFILE 08/15/2024 08:43 AM Indication: GDM/HASHIMOTOS Comparison: None Technique: Sonogram of gravid uterus utilizing grayscale and color techniques. FINDINGS: Single living intrauterine gestation. Presentation: Cephalic Placenta: Anterior heart rate: 140 bpm AARON: 18.6 cm, DVP: 7.3 cm Maternal cervix: Not visualized Biophysical Profile: breathing score: 2 movement score: 2 tone: 2 Quantitative AARON score: 2 Total score: 8/8 IMPRESSION: 1. Single living as above. 2. Biophysical profile score: 8/8. ATED BY: LATOYA AYALA MD DICTATED DATE/TIME: 08/15/24913 SIGNED BY: LATOYA AYALA MD SIGNED DATE/TIME: 08/15/24913 Condition on Discharge: Stable Disposition: Home Discharge Instructions: Diet: Consistent carbohydrate Activity: Light activity Follow Up/Referral: As scheduled Medications: N/A Follow Up Care: Discharge Statement: "Patient was advised to return to the ER or call 911 if any headaches, dizziness, shortness of breath, chest pain, abdominal pain, bleeding, fevers, or worsening of medical condition. Patient was counseled about treatment plan, medications, possible side effects, patientverbalized understanding. All questions were answered to the best of my ability. This discharge took greater then 30 minutes in planning, reviewing documentation, counseling the patient, and discussing with other team members." Visit Coding OBGYN Date of Service: Aug 15, 2024 Billing Provider: JOSEPH JAMA DO CONSERVATOR ARTIFACTS Common Visit Codes: 50162-NTI/OBS SAME DATE (MOD) CONSERVATOR ARTIFACTS Procedure Codes: 32246-18- NON-STRESS TEST JOSEPH JAMA DO Aug 15, 2024 16:04
== END 2024-08-15 10:03 | disposition home or self-care (01) ==
LOC: LDRP 07:55 → UNDOADMOB 07:55 → LDRP 08:31 → UNDODISOB 10:03
PROVIDERS: ADMIT Obstetrics & Gynecology; ATTEND Obstetrics & Gynecology
DX: O24.419 Gestational diabetes mellitus in pregnancy, unspecified control (principal); O99.283 Endocrine, nutritional and metabolic diseases complicating pregnancy, third trimester; E03.9 Hypothyroidism, unspecified; Z98.890 Other specified postprocedural states; Z79.899 Other long term (current) drug therapy; Z3A.32 32 weeks gestation of pregnancy
CPT/HCPCS: 76819; 81002; 82948; 82962; 94760; G0378

== ENCOUNTER 2024-08-18 10:02 | Observation (INO) | payer BC ==
[~2024-08-18 10:02] MED LIST changes: +ASPI-543 PO; +FAMO20TA10 PO; +LEVO25TA6 PO; +PREN-96 PO
--- NOTE | 2024-08-18 11:15 | DVH ---
BIOPHYSICAL PROFILE HISTORY: GDM TECHNIQUE: Multiple real-time grayscale sonographic images through the gravid uterus of the fetus wi th duplex Doppler color flow and M-mode spectral analysis FINDINGS: BIOPHYSICAL PROFILE: breathing score: 2 movement score: 2 tone score: 2 Quantitative AARON score: 2 (AARON: 20 Cm.) Total score: 8 Single live fetus in cephalic presentation. heart rate 165 beats per minute. Grade II anterior placenta without previa or abruption IMPRESSION: Biophysical profile score: 8/8
--- NOTE | 2024-08-18 13:43 | DVHDS2 ---
Physician Discharge Progress N Final Diagnosis: gdm 32 wks Operations or Procedures: Operations or Procedures nst 32 wks,sono Condition on Discharge: Good Disposition: Home Discharge Instructions: Diet: Consistent carbohydrate Activity: No Restrictions, As Tolerated Follow Up/Referral: asscheduled. Medications: na Follow Up Care: Specialist: 4d Discharge Statement: "Patient was advised to return to the ER or call 911 if any headaches, dizziness, shortness of breath, chest pain, abdominal pain, bleeding, fevers, or worsening of medical condition. Patient was counseled about treatment plan, medications, possible side effects, patientverbalized understanding. All questions were answered to the best of my ability. This discharge took greater then 30 minutes in planning, reviewing documentation, counseling the patient, and discussing with other team members." Visit Coding OBGYN Date of Service: Aug 18, 2024 Billing Provider: MARY PAULINO DO FINANCIAL SERVICES REPRESENTATIVE Common Visit Codes: 54702-ZKVAQIC INP/OBS CARE (HIGH) FINANCIAL SERVICES REPRESENTATIVE Procedure Codes: 61766-88- NON-STRESS TEST MARY PAULINO DO Aug 18, 2024 13:43
== END 2024-08-18 11:25 | disposition home or self-care (01) ==
LOC: LDRP 10:02 → UNDOADMOB 10:02 → LDRP 10:12 → UNDODISOB 11:25
PROVIDERS: ADMIT Obstetrics & Gynecology; ATTEND Obstetrics & Gynecology
DX: O24.419 Gestational diabetes mellitus in pregnancy, unspecified control (principal); Z3A.32 32 weeks gestation of pregnancy; Z79.899 Other long term (current) drug therapy
CPT/HCPCS: 76819; 81002; 82948; 82962; G0378

== ENCOUNTER 2024-08-22 06:58 | Observation (INO) | payer BC ==
--- NOTE | 2024-08-22 10:50 | DVH ---
BIOPHYSICAL PROFILE HISTORY: GDMA1 Comparison Study: 08/18/2024 TECHNIQUE: Multiple real-time grayscale sonographic images through the gravid uterus of the fetus wi th duplex Doppler color flow and M-mode spectral analysis FINDINGS: BIOPHYSICAL PROFILE: breathing score: 2 movement score: 2 tone score: 2 Quantitative AARON score: 2 (AARON: 17.1 Cm.) Total score: 8 The cervix is not visualized Single live fetus in cephalic presentation. heart rate 151 beats per minute. Anterior placenta without previa or abruption IMPRESSION: Biophysical profile score: 8
--- NOTE | 2024-08-22 23:07 | DVHDS2 ---
Physician Discharge Progress N Final Diagnosis: testing for GDM, A1/sharita Operations or Procedures: Operations or Procedures 34yo IUP@33.2wks VSS NST reactive FKC/PTL precautions reviewed Dr. Gutierrez consulted, agrees with POC. Other Interventions Other Interventions [facility] [id number] [place] [id number] Ph: [phone] DIAGNOSTIC IMAGING Diagnostic Imaging Report : [id number] Signed PATIENT: KIARA FLEMING ACCT: [id number] UNIT: [id number] : 1990 LOC: [facility] ROOM / BED: TRIAGE1 / A AGE / SEX: 34 / F ADM STATUS: ADM IN SERVICE 1008 ORDERING PHYSICIAN: MARY GUTIERREZ DO PROCEDURE(s): BPP - BIOPHYSICAL PROFILE REASON: GDMA1 ORDER NUMBER(s): [id number], ACCESSION NUMBER(s): [id number] BIOPHYSICAL PROFILE HISTORY: GDMA1 Comparison Study: 08/18/2024 TECHNIQUE: Multiple real-time grayscale sonographic images through the gravid uterus of the fetus with duplex Doppler color flow and M-mode spectral analysis FINDINGS: BIOPHYSICAL PROFILE: breathing score: 2 movement score: 2 tone score: 2 Quantitative AARON score: 2 (AARON: 17.1 Cm.) Total score: 8 The cervix is not visualized Single live fetus in cephalic presentation. heart rate 151 beats per minute. Anterior placenta without previa or abruption IMPRESSION: Biophysical profile score: 8 ATED BY: DELGADO PLASCENCIA MD DICTATED DATE/TIME: 08/22/241047 SIGNED BY: DELGADO PLASCENCIA MD SIGNED DATE/TIME: 08/22/241047 CC: Condition on Discharge: Stable Disposition: Home Discharge Instructions: Diet: Regular Activity: No Restrictions, As Tolerated Medications: see med list Follow Up Care: Specialist: f/u in 3 days Discharge Statement: "Patient was advised to return to the ER or call 911 if any headaches, dizziness, shortness of breath, chest pain, abdominal pain, bleeding, fevers, or worsening of medical condition. Patient was counseled about treatment plan, medications, possible side effects, patientverbalized understanding. All questions were answered to the best of my ability. This discharge took greater then 30 minutes in planning, reviewing docum entation, counseling the patient, and discussing with other team members." Visit Coding OBGYN Date of Service: Aug 22, 2024 Billing Provider: ASHLEY MCCLELLAND CNM TOOLROOM MACHINIST Common Visit Codes: 07980-PVTLBAO OBS CARE (HIGH) TOOLROOM MACHINIST Procedure Codes: 36091-93- NON-STRESS TEST ASHLEY MCCLELLAND CNM Aug 22, 2024 23:07
== END 2024-08-22 11:33 | disposition home or self-care (01) ==
LOC: LDRP 10:02 → UNDOADMOB 10:02 → LDRP 10:08
PROVIDERS: ADMIT Obstetrics & Gynecology; ATTEND Obstetrics & Gynecology
DX: O24.419 Gestational diabetes mellitus in pregnancy, unspecified control (principal); Z98.890 Other specified postprocedural states; Z79.899 Other long term (current) drug therapy; Z3A.33 33 weeks gestation of pregnancy
CPT/HCPCS: 76818; 81002; 82948; 82962; 94760; G0378; 76819

== ENCOUNTER 2024-08-25 10:01 | Observation (INO) | payer BC ==
--- NOTE | 2024-08-25 14:19 | DVH ---
BIOPHYSICAL PROFILE HISTORY: GDMA1/Hypothyroidism TECHNIQUE: Multiple transabdominal real-time grayscale sonographic images through the gravid uterus of the fetus with duplex Doppler color flow and M-mode spectral analysis FINDINGS: BIOPHYSICAL PROFILE: breathing score: 2 movement score: 2 tone score: 2 Quantitative AARON score: 2 (AARON: 11 Cm.) Total score: 8 The cervix was not seen Single live fetus in cephalic presentation. heart rate 136 beats per minute. Grade II anterior placenta without previa or abruption IMPRESSION: Biophysical profile score: 8/8
--- NOTE | 2024-08-26 06:31 | DVHDS2 ---
Physician Discharge Progress N Final Diagnosis: hypothyroid 33wks Operations or Procedures: Operations or Procedures nst,sono Condition on Discharge: Good Disposition: Home Discharge Instructions: Diet: Regular Activity: Light activity Medications: na Follow Up Care: Specialist: 4d Discharge Statement: "Patient was advised to return to the ER or call 911 if any headaches, d izziness, shortness of breath, chest pain, abdominal pain, bleeding, fevers, or worsening of medical condition. Patient was counseled about treatment plan, medications, possible side effects, patientverbalized understanding. All questions were answered to the best of my ability. This discharge took greater then 30 minutes in planning, reviewing documentation, counseling the patient, and discussing with other team members." Visit Coding OBGYN Date of Service: Aug 25, 2024 Billing Provider: MARY PAULINO DO BRIDGE IRONWORKER Common Visit Codes: [id number] INP/OBS CARE (HIGH) BRIDGE IRONWORKER Procedure Codes: 62723-35- NON-STRESS TEST MARY PAULINO DO Aug 26, 2024 06:31
== END 2024-08-25 14:20 | disposition home or self-care (01) ==
LOC: UNDOADMOB 13:08 → LDRP 13:08
PROVIDERS: ADMIT Obstetrics & Gynecology; ATTEND Obstetrics & Gynecology
DX: O99.283 Endocrine, nutritional and metabolic diseases complicating pregnancy, third trimester (principal); E03.9 Hypothyroidism, unspecified; O24.419 Gestational diabetes mellitus in pregnancy, unspecified control; Z3A.33 33 weeks gestation of pregnancy; Z79.899 Other long term (current) drug therapy; Z98.890 Other specified postprocedural states
CPT/HCPCS: 76818; 81002; 94760; G0378; 76819

== ENCOUNTER 2024-08-29 07:15 | Observation (INO) | payer BC ==
--- NOTE | 2024-08-29 09:52 | DVH ---
BIOPHYSICAL PROFILE HISTORY: GDMA1 TECHNIQUE: Multiple transabdominal real-time grayscale sonographic images through the gravid uterus of the fetus with duplex Doppler color flow and M-mode spectral analysis FINDINGS: BIOPHYSICAL PROFILE: breathing score: 2 movement score: 2 tone score: 2 Quantitative AARON score: 2 (AARON: 11.4 Cm.) Total score: 8/8 The cervix is not visualized. Single live fetus in cephalic presentation. heart rate 130 beats per minute. Anterior placenta without previa or abruption IMPRESSION: 1. Biophysical profile score: 8/8.
--- NOTE | 2024-08-29 13:43 | DVHDS2 ---
Physician Discharge Progress N Final Diagnosis: testing for GDM, A1 Operations or Procedures: Operations or Procedures 34yo IUP@34.2wks VSS NST reactive FKC/PTL precautions reviewed Dr. Gutierrez consulted, agrees with POC. Other Interventions Other Interventions [address] [address] Ph: [phone] DIAGNOSTIC IMAGING Diagnostic Imaging Report : [id number] Signed PATIENT: KIARA FLEMING ACCT: [id number] UNIT: [id number] : 1990 LOC: [facility] ROOM / BED: TRIAGE2 / A AGE / SEX: 34 / F ADM STATUS: ADM IN SERVICE 4 ORDERING PHYSICIAN: ASHLEY MCCLELLAND CNM PROCEDURE(s): BPP - BIOPHYSICAL PROFILE REASON: GDMA1 ORDER NUMBER(s): [id number], ACCESSION NUMBER(s): [id number] BIOPHYSICAL PROFILE HISTORY: GDMA1 TECHNIQUE: Multiple transabdominal real-time grayscale sonographic images through the gravid uterus of the fetus with duplex Doppler color flow and M-mode spectral analysis FINDINGS: BIOPHYSICAL PROFILE: breathing score: 2 movement score: 2 tone score: 2 Quantitative AARON score: 2 (AARON: 11.4 Cm.) Total score: 8/8 The cervix is not visualized. Single live fetus in cephalic presentation. heart rate 130 beats per minute. Anterior placenta without previa or abruption IMPRESSION: 1. Biophysical profile score: 8/8. ATED BY: ADELE GOODEN MD DICTATED DATE/TIME: 08/29/24949 SIGNED BY: ADELE GOODEN MD SIGNED DATE/TIME: 08/29/24949 CC: Condition on Discharge: Stable Disposition: Home Discharge Instructions: Diet: Consistent carbohydrate Activity: Light activity Medications: see med list Follow Up Care: Specialist: f/u in 1 wk Discharge Statement: "Patient was advised to return to the ER or call 911 if any headaches, dizziness, shortness of breath, chest pain, abdominal pain, bleeding, fevers, or worsening of medical condition. Patient was counseled about treatment plan, medications, possible side effects, patientverbalized understanding. All questions were answered to the best of my ability. This discharge took greater then 30 minutes in planning, reviewing documentation, counseling the patient, and discussing with other team members." Visit Coding OBGYN Date of Service: Aug 29, 2024 Billing Provider: ASHLEY MCCLELLAND CNM TELEVISION ANNOUNCER Common Visit Codes: [id number] OBS CARE (HIGH) TELEVISION ANNOUNCER Procedure Codes: 08218-17- NON-STRESS TEST ASHLEY MCCLELLAND CNM Aug 29, 2024 13:43
== END 2024-08-29 10:04 | disposition home or self-care (01) ==
LOC: UNDOADMOB 09:00 → LDRP 09:00
PROVIDERS: ADMIT Obstetrics & Gynecology; ATTEND Obstetrics & Gynecology
DX: O24.419 Gestational diabetes mellitus in pregnancy, unspecified control (principal); Z98.890 Other specified postprocedural states; Z79.899 Other long term (current) drug therapy; Z3A.34 34 weeks gestation of pregnancy
CPT/HCPCS: 76819; 81002; 82948; 82962; 94760; G0378

== ENCOUNTER 2024-09-05 10:05 | Observation (INO) | payer BC ==
--- NOTE | 2024-09-05 10:41 | DVH ---
Procedure: US BIOPHYSICAL PROFILE 09/05/2024 10:24 AM Indication: gdma1 Comparison: US BIOPHYSICAL PROFILE on DOS: 08/29/24, US BIOPHYSICAL PROFILE on DOS: 08/25/24, US BIOPHYSI JOSE PROFILE on DOS: 08/22/24 Technique: Sonogram of gravid uterus utilizing grayscale and color techniques. FINDINGS: Single living intrauterine gestation. Presentation: Cephalic Placenta: Anterior heart rate: 138 bpm AARON: 13 cm, DVP: 4.6 cm Maternal cervix: Not visualized Biophysical Profile: breathing score: 2 movement score: 2 tone: 2 Quantitative AARON score: 2 Total score: 8/8 IMPRESSION: 1. Single living as above. 2. Biophysical profile score: 8/8.
--- NOTE | 2024-09-05 10:57 | DVHDS2 ---
Physician Discharge Progress N Final Diagnosis: GDM Operations or Procedures: Operations or Procedures NST,SONO Condition on Discharge: Good Disposition: Home Discharge Instructions: Diet: Consistent carbohydrate Activity: No Restrictions, As Tolerated Medications: NA Follow Up Care: Specialist: 1W Discharge Statement: "Patient was advised to return to the ER or call 911 if any headaches, dizziness, shortness of breath, chest pain, abdominal pain, bleeding, fevers, or worsening of medical condition. Patient was counseled about treatment plan, medications, possible side effects, patientverbalized understanding. All questions were answered to the best of my ability. This discharge took greater then 30 minutes in planning, reviewing documentation, counseling the patient, and discussing with other team members." Visit Coding OBGYN Date of Service: Sep 05, 2024 Billing Provider: MARY PAULINO DO STRATEGIC DEBRIEFING OFFICER Common Visit Codes: [id number]-[id number] INP/OBS CARE (HIGH) STRATEGIC DEBRIEFING OFFICER Procedure Codes: 01459-67- NON-STRESS TEST MARY PAULINO DO Sep 05, 2024 10:57
[2024-09-19] MEDS ORDERED: DOXY25TA9 PO (15:01)
== END 2024-09-05 11:00 | disposition home or self-care (01) ==
LOC: LDRP 10:05 → UNDOADMOB 10:05 → LDRP 10:13 → UNDODISOB 11:00
PROVIDERS: ADMIT Obstetrics & Gynecology; ATTEND Obstetrics & Gynecology
DX: O24.419 Gestational diabetes mellitus in pregnancy, unspecified control (principal); Z3A.35 35 weeks gestation of pregnancy; Z79.899 Other long term (current) drug therapy
CPT/HCPCS: 76818; 81002; 82948; 82962; 94760; G0378; 76819

== ENCOUNTER 2024-09-08 06:40 | Observation (INO) | payer BC ==
--- NOTE | 2024-09-08 12:43 | DVH ---
BIOPHYSICAL PROFILE HISTORY: GDMA1 Comparison Study: None TECHNIQUE: Multiple real-time grayscale sonographic images through the gravid uterus of the fetus wi th duplex Doppler color flow and M-mode spectral analysis FINDINGS: BIOPHYSICAL PROFILE: breathing score: 2 movement score: 2 tone score: 2 Quantitative AARON score: 2 (AARON: 10.5 Cm.) Total score: 8 The cervix is not visualized Single live fetus in cephalic presentation. heart rate 163 beats per minute. Grade 3, anterior placenta without previa or abruption IMPRESSION: Biophysical profile score: 8
--- NOTE | 2024-09-09 08:04 | DVHDS2 ---
Physician Discharge Progress N Final Diagnosis: gdm 35wks Operations or Procedures: Operations or Procedures nst,sono Condition on Discharge: Good Disposition: Home Discharge Instructions: Diet: Consistent carbohydrate Activity: No Restrictions, As Tolerated Medications: na Follow Up Care: Specialist: 2d Discharge Statement: "Patient was advised to return to the ER or call 911 if any headaches, dizziness, shortness of breath, chest pain, abdominal pain, bleeding, fevers, or worsening of medical condition. Patient was counseled about treatment plan, medications, possible side effects, patientverbalized understanding. All questions were answered to the best of my ability. This discharge took greater then 30 minutes in planning, reviewing documentati on, counseling the patient, and discussing with other team members." Visit Coding OBGYN Date of Service: Sep 08, 2024 Billing Provider: MARY PAULINO DO INDUSTRIAL CONVEYOR BELT REPAIRER Common Visit Codes: [id number] INP/OBS CARE (HIGH) INDUSTRIAL CONVEYOR BELT REPAIRER Procedure Codes: 24021-50- NON-STRESS TEST MARY PAULINO DO Sep 09, 2024 08:04
[2024-09-19] MEDS ORDERED: DOXY25TA9 PO (15:01)
== END 2024-09-08 12:35 | disposition home or self-care (01) ==
LOC: UNDOADMOB 11:09 → LDRP 11:09 → UNDODISOB 12:35
PROVIDERS: ADMIT Obstetrics & Gynecology; ATTEND Obstetrics & Gynecology
DX: O24.419 Gestational diabetes mellitus in pregnancy, unspecified control (principal); Z3A.35 35 weeks gestation of pregnancy; Z79.899 Other long term (current) drug therapy
CPT/HCPCS: 76818; 81002; 82948; 82962; 94760; G0378; 76819

== ENCOUNTER 2024-09-12 06:55 | Observation (INO) | payer BC ==
--- NOTE | 2024-09-12 11:56 | DVH ---
CLINICAL HISTORY: Gestational diabetes. Demarcus's thyroiditis. COMPARISON: US BIOPHYSICAL PROFILE on DOS: 09/08/24, US BIOPHYSICAL PROFILE on DOS: 09/05/24, US BIOPHY SICAL PROFILE on DOS: 08/29/24 TECHNIQUE: biophysical profile was performed. Transabdominal sonographic images of the fetus we re obtained. FINDINGS: The fetus is in cephalic position. heart rate measures 150 BPM. Amniotic fluid index measures 10.2 cm. The placenta is anterior in position. No visualized evidence of placenta previa or abruption. Placental lakes visualized. BPP profile is an overall score of 8/8, with 2/2 points for breathing, with at least one episode of breathing over a 30 second duration during a 30 minute observation, 2/2 points for m ovements, with 3 or more discrete body or limb movements, 2/2 points for tone, with one or more episodes of extremity extension with return to flexion, or opening and closing of hand, and 2/ 2 points for amniotic fluid, with at least 1 pocket of amniotic fluid that measures 2 cm in 2 perpend icular planes. IMPRESSION: BPP score of 8/8.
--- NOTE | 2024-09-12 13:00 | DVHDS2 ---
Physician Discharge Progress N Final Diagnosis: testing for GDM, A1 and sharita's Operations or Procedures: Operations or Procedures 34yo IUP@36.2wks, +FM, denies UCs/LOF/VB/PRECIADO/vision changes/RUQ pain. VSS NST reactive FKC/PTL precautions reviewed Dr. Gutierrez consulted, agrees with POC. Other Interventions Other Interventions [place] [address] Ph: [phone] DIAGNOSTIC IMAGING Diagnostic Imaging Report : [id number] Signed PATIENT: KIARA FLEMING ACCT: [id number] UNIT: [id number] : 1990 [facility] / BED: TRIAGE1 / A AGE / SEX: 34 / F ADM STATUS: ADM IN SERVICE 1105 ORDERING PHYSICIAN: ASHLEY MCCLELLAND CNM PROCEDURE(s): BPP - BIOPHYSICAL PROFILE REASON: GDMA1 ORDER NUMBER(s): [id number], ACCESSION NUMBER(s): [id number] CLINICAL HISTORY: Gestational diabetes. Sharita's thyroiditis. COMPARISON: US BIOPHYSICAL PROFILE on DOS: 09/08/24, US BIOPHYSICAL PROFILE on DOS: 09/05/24, US BIOPHYSICAL PROFILE on DOS: 08/29/24 TECHNIQUE: biophysical profile was performed. Transabdominal sonographic images of the fetus were obtained. FINDINGS: The fetus is in cephalic position. heart rate measures 150 BPM. Amniotic fluid index measures 10.2 cm. The placenta is anterior in position. No visualized evidence of placenta previa or abruption. Placental lakes visualized. BPP profile is an overall score of 8/8, with 2/2 points for breathing, with at least one episode of breathing over a 30 second duration during a 30 minute observation, 2/2 points for movements, with 3 or more discrete body or limb movements, 2/2 points for tone, with one or more episodes of extremity extension with return to flexion, or opening and closing of hand, and 2/2 points for amniotic fluid, with at least 1 pocket of amniotic fluid that measures 2 cm in 2 perpendicular planes. IMPRESSION: BPP score of 8/8. ATED BY: WILBERTO BARRETT DO DICTATED DATE/TIME: 09/12/24 1154 SIGNED BY: WILBERTO BARRETT DO SIGNED DATE/TIME: 09/12/24 1154 CC: Condition on Discharge: Stable Disposition: Home Discharge Instructions: Diet: Consistent carbohydrate Activity: No Restrictions, As Tolerated Medications: see med list Follow Up Care: Specialist: f/u in 3 days Discharge Statement: "Patient was advised to return to the ER or call 911 if any headaches, dizzin ess, shortness of breath, chest pain, abdominal pain, bleeding, fevers, or worsening of medical condition. Patient was counseled about treatment plan, medications, possible side effects, patientverbalized understanding. All questions were answered to the best of my ability. This discharge took greater then 30 minutes in planning, reviewing documentation, counseling the patient, and discussing with other team members." Visit Coding OBGYN Date of Service: Sep 12, 2024 Billing Provider: ASHLEY MCCLELLAND CNM FAST FOOD SUPERVISOR Common Visit Codes: [id number] OBS CARE (HIGH) FAST FOOD SUPERVISOR Procedure Codes: 08506-16- NON-STRESS TEST ASHLEY MCCLELLAND CNM Sep 12, 2024 13:00
== END 2024-09-12 12:03 | disposition home or self-care (01) ==
LOC: LDRP 10:27 → UNDOADMOB 10:27 → LDRP 11:06 → UNDODISOB 12:03
PROVIDERS: ADMIT Obstetrics & Gynecology; ATTEND Obstetrics & Gynecology
DX: O24.419 Gestational diabetes mellitus in pregnancy, unspecified control (principal); O99.283 Endocrine, nutritional and metabolic diseases complicating pregnancy, third trimester; E06.3 Autoimmune thyroiditis; Z98.890 Other specified postprocedural states; Z79.899 Other long term (current) drug therapy; Z3A.36 36 weeks gestation of pregnancy
CPT/HCPCS: 76818; 76819; 81002; 82948; 82962; 94760

== ENCOUNTER 2024-09-15 15:00 | Observation (INO) | payer BC ==
[~2024-09-15] VITALS: Ht 160 cm; Wt 78.5 kg
--- NOTE | 2024-09-15 15:53 | DVH ---
OB ULTRASOUND, LIMITED CLINICAL INDICATION: GDMA1/Hashimotos TECHNIQUE: Multiple grayscale ultrasound and M-mode images were obtained of the pelvis for evaluation of intrauterine . COMPARISON: US BIOPHYSICAL PROFILE on DOS: 09/12/24, US BIOPHYSICAL PROFILE on DOS: 09/08/24, US BIOPHY SICAL PROFILE on DOS: 09/05/24 FINDINGS: A single living fetus is seen in cephalic presentation. Biophysical profile: 12/29 breathin movements: 2 tone: 2 Amniotic fluid: 2 Placenta: Anterior Amniotic fluid: Visibly normal. AARON 11 cm heart rate: 40 beats/min. A complete anatomic survey was not performed on this exam. IMPRESSION: Biophysical profile 12/29
[2024-09-15] MEDS: LACTATED RINGER'S 1,000 ML IV ONE (17:07)
--- NOTE | 2024-09-15 18:25 | DVHDS2 ---
Physician Discharge Progress N Final Diagnosis: IUP 36.6 wk, GDMA1 Hypothyroidism Secondary Diagnosis: surveillance Operations or Procedures: Operations or Procedures NST/BPP AARON All normal Condition on Discharge: Stable Disposition: Home Discharge Instructions: Diet: Consistent carbohydrate Activity: Light activity Follow Up/Referral: as scheduled Medications: N/A Follow Up Care: Discharge Statement: "Patient was advised to return to the ER or call 911 if any headaches, dizziness, shortness of breath, chest pain, abdominal pain, bleeding, fevers, or worsening of medical condition. Patient was counseled about treatment plan, medications, possible side effects, patientverbalized understanding. All questions were answered to the best of my ability. This discharge took greater then 30 minutes in planning, reviewing documentation, counseling the patient, and discussing with other team members." Visit Coding OBGYN Date of Service: Sep 15, 2024 Billing Provider: JOSEPH JAMA DO RETAIL CHAIN STORE AREA SUPERVISOR Common Visit Codes: 50769-WVS/OBS SAME DATE (MOD) JOSEPH JAMA DO Sep 15, 2024 18:25
== END 2024-09-15 18:39 | disposition home or self-care (01) ==
LOC: UNDOADMOB 15:00 → LDRP 15:00 → UNDODISOB 18:39
PROVIDERS: ADMIT Obstetrics & Gynecology; ATTEND Obstetrics & Gynecology
DX: O99.283 Endocrine, nutritional and metabolic diseases complicating pregnancy, third trimester (principal); E03.9 Hypothyroidism, unspecified; O24.410 Gestational diabetes mellitus in pregnancy, diet controlled; Z3A.36 36 weeks gestation of pregnancy
CPT/HCPCS: 76818; 81002; 82948; 82962; 94760; 96360; 96361; G0378; 76819

== ENCOUNTER 2024-09-19 06:46 | Observation (INO) | payer BC ==
[~2024-09-19] VITALS: Ht 160 cm; Wt 82.6 kg
[2024-09-19] MEDS ORDERED: DOXY25TA9 PO ×2 (15:01)
--- NOTE | 2024-09-19 15:50 | DVH ---
CLINICAL HISTORY: Gestational diabetes. Demarcus's thyroiditis COMPARISON: US BIOPHYSICAL PROFILE on DOS: 09/15/24, US BIOPHYSICAL PROFILE on DOS: 09/12/24, US BIOPHY SICAL PROFILE on DOS: 09/08/24 TECHNIQUE: biophysical profile was performed. Transabdominal sonographic images of the fetus we re obtained. FINDINGS: The fetus is in cephalic position. heart rate measures 136 BPM. Amniotic fluid index measures 15.7 cm. The placenta is anterior in position with no evidence of previa or abruption. Cervi x appears closed and measures up to 3 cm in length on transabdominal scanning. BPP profile is an overall score of 8/8, with 2/2 points for breathing, with at least one episode of breathing over a 30 second duration during a 30 minute observation, 2/2 points for m ovements, with 3 or more discrete body or limb movements, 2/2 points for tone, with one or more episodes of extremity extension with return to flexion, or opening and closing of hand, and 2/ 2 points for amniotic fluid, with at least 1 pocket of amniotic fluid that measures 2 cm in 2 perpend icular planes. IMPRESSION: 1. BPP score of 8/8. 2. Cervix appears closed and measures approximately 3 cm in length on transabdominal imaging.
--- NOTE | 2024-09-19 22:49 | DVHDS2 ---
Physician Discharge Progress N Final Diagnosis: testing for GDM, A1/sharita's Operations or Procedures: Operations or Procedures 34yo IUP@37.3wks VSS NST reactive FKC/labor precautions reviewed. Dr. Gutierrez consulted, agrees with POC. Condition on Discharge: Stable Disposition: Home Discharge Instructions: Diet: Regular Activity: No Restrictions, As Tolerated Follow Up/Referral: Maintain all regularly schedueld follow up appointments with Dr. Gutierrez. Continue twice weekly NST/BPP in [facility]. Medications: Continue medications as directed by [facility] OB Physician. Follow Up Care: Specialist: f/u in 3 days Discharge Statement: "Patient was advised to return to the ER or call 911 if any headaches, dizziness, shortness of breath, chest pain, abdominal pain, bleeding, fevers, or worsening of medical condition. Patient was counseled about treatment plan, medications, possible side effects, patientverbalized understanding. All questions were answered to the best of my ability. This discharge took greater then 30 minutes in planning, reviewing documentation, counseling the patient, and discussing with other team members." Visit Coding OBGYN Date of Service: Sep 19, 2024 Billing Provider: ASHLEY MCCLELLAND CNM CAREER SERVICES DIRECTOR Common Visit Codes: [id number] OBS CARE (HIGH) CAREER SERVICES DIRECTOR Procedure Codes: 79570-48- NON-STRESS TEST ASHLEY MCCLELLAND CNM Sep 19, 2024 22:49
== END 2024-09-19 15:57 | disposition home or self-care (01) ==
LOC: UNDOADMOB 13:00 → LDRP 13:00 → UNDODISOB 15:57
PROVIDERS: ADMIT Obstetrics & Gynecology; ATTEND Obstetrics & Gynecology
DX: O24.419 Gestational diabetes mellitus in pregnancy, unspecified control (principal); Z98.890 Other specified postprocedural states; Z79.899 Other long term (current) drug therapy; Z3A.37 37 weeks gestation of pregnancy
CPT/HCPCS: 76818; 81002; 82948; 82962; 94760; G0378; 76819

== ENCOUNTER 2024-09-22 07:20 | Observation (INO) | payer BC ==
[~2024-09-22 07:20] MED LIST changes: -ASPI-543 PO; +DOXY25TA9 PO; -FAMO20TA10 PO
--- NOTE | 2024-09-26 12:58 | DVH ---
BIOPHYSICAL PROFILE HISTORY: gdma1/hoshimoto Comparison Study: US BIOPHYSICAL PROFILE on DOS: 09/22/24, US BIOPHYSICAL PROFILE on DOS: 09/19/24, US B IOPHYSICAL PROFILE on DOS: 09/15/24, US BIOPHYSICAL PROFILE on DOS: 09/12/24, US BIOPHYSICAL PROFILE on DOS: 09/08/24 TECHNIQUE: Multiple real-time grayscale sonographic images through the gravid uterus of the fetus wi th duplex Doppler color flow and M-mode spectral analysis FINDINGS: BIOPHYSICAL PROFILE: breathing score: 2 movement score: 2 tone score: 2 Quantitative AARON score: 2 (AARON: 12.5 Cm.) Total score: 8 The cervix is not visualized Single live fetus in cephalic presentation. heart rate 139 beats per minute. Anterior placenta without previa or abruption IMPRESSION: Biophysical profile score: 8
--- NOTE | 2024-09-26 13:02 | DVHDS2 ---
Physician Discharge Progress N Final Diagnosis: testing for GDM, A1 and sharita's Operations or Procedures: Operations or Procedures 34yo IUP@38+wks VSS NST reactive BPP wnl FKC/Labor precautions reviewed. Condition on Discharge: Stable Disposition: Home Discharge Instructions: Diet: Consistent carbohydrate Activity: No Restrictions, As Tolerated Medications: see med list Follow Up Care: Specialist: f/u in 3 days Discharge Statement: "Patient was advised to return to the ER or call 911 if any headaches, dizziness, shortness of breath, chest pain, abdominal pain, bleeding, fevers, or worsening of medical condition. Patient was counseled about treatment plan, medications, possible side effects, patient�verbalized understanding. All questions were answered to the best of my ability. This discharge took greater then 30 minutes in planning, reviewing documentati on, counseling the patient, and discussing with other team members." Visit Coding OBGYN Date of Service: September 26, 2024 Billing Provider: ASHLEY MCCLELLAND CNM DIRECTOR STAGE Common Visit Codes: [id number] OBS CARE (HIGH) DIRECTOR STAGE Procedure Codes: 82638-79- NON-STRESS TEST ASHLEY MCCLELLAND CNM September 26, 2024 13:02
== END 2024-09-26 13:07 | disposition home or self-care (01) ==
LOC: LDRP 09-26 12:00
PROVIDERS: ADMIT Obstetrics & Gynecology; ATTEND Obstetrics & Gynecology
DX: O24.419 Gestational diabetes mellitus in pregnancy, unspecified control (principal); Z3A.38 38 weeks gestation of pregnancy; Z79.899 Other long term (current) drug therapy
CPT/HCPCS: 76818; 81002; 82948; 82962; 94760; G0378; 59025; 76819

== ENCOUNTER 2024-09-22 15:12 | Observation (INO) | payer BC ==
[~2024-09-22 15:12] MED LIST changes: +ASPI-543 PO; +FAMO20TA10 PO
--- NOTE | 2024-09-22 16:24 | DVH ---
Procedure: US BIOPHYSICAL PROFILE 09/22/2024 03:32 PM Indication: NST/BPP GDMA1, Hashimotos, Sjrogens Comparison: US BIOPHYSICAL PROFILE on DOS: 09/19/24, US BIOPHYSICAL PROFILE on DOS: 09/15/24, US BIOPHY SICAL PROFILE on DOS: 09/12/24 Technique: Sonogram of gravid uterus utilizing grayscale and color techniques. FINDINGS: Single living intrauterine gestation. Presentation: Cephalic Placenta: Anterior, grade 2, no previa or abruption heart rate: 138 bpm AARON: 11.3 cm, DVP: 3.5 cm Maternal cervix: Not visualized Biophysical Profile: breathing score: 2 movement score: 2 tone: 2 Quantitative AARON score: 2 Total score: 8/8 IMPRESSION: 1. Single living as above. 2. Biophysical profile score: 8/8.
--- NOTE | 2024-09-23 07:41 | DVHDS2 ---
Physician Discharge Progress N Final Diagnosis: iup at 37wks gdm,hashimotos Operations or Procedures: Operations or Procedures nst reactive reviewed Condition on Discharge: Good Disposition: Home Discharge Instructions: Diet: Regular, Consistent carbohydrate Activity: No Restrictions, As Tolerated Medications: na Follow Up Care: Specialist: 3d Discharge Statement: "Patient was advised to return to the ER or call 911 if any headaches, dizziness, shortness of breath, chest pain, abdominal pain, bleeding, fevers, or worsening of medical condition. Patient was counseled about treatment plan, medications, possible side effects, patientverbalized understanding. All questions were answered to the best of my ability. This discharge took greater then 30 minutes in planning, reviewing documentation, counseling the patient, and discussing with other team members." Visit Coding OBGYN Date of Service: September 22, 2024 Billing Provider: MARY PAULINO DO MANAGER OF HOUSEKEEPING Common Visit Codes: [id number]-PRNUNAI OBS CARE (HIGH) MANAGER OF HOUSEKEEPING Procedure Codes: 11303-73- NON-STRESS TEST MARY PAULINO DO September 23, 2024 07:41
== END 2024-09-22 16:42 | disposition home or self-care (01) ==
LOC: LDRP 15:12
PROVIDERS: ADMIT Obstetrics & Gynecology; ATTEND Obstetrics & Gynecology
DX: O24.419 Gestational diabetes mellitus in pregnancy, unspecified control (principal); O99.283 Endocrine, nutritional and metabolic diseases complicating pregnancy, third trimester; E06.3 Autoimmune thyroiditis; Z3A.37 37 weeks gestation of pregnancy; Z98.890 Other specified postprocedural states; Z79.899 Other long term (current) drug therapy
CPT/HCPCS: 76818; 81002; 82948; 82962; 94760; G0378; 59025; 76819

== ENCOUNTER 2024-09-29 06:51 | Observation (INO) | payer BC ==
[~2024-09-29 06:51] MED LIST changes: -ASPI-543 PO; -FAMO20TA10 PO
--- NOTE | 2024-09-30 13:18 | DVH ---
EXAM: US BIOPHYSICAL PROFILE HISTORY: Hypothyroidism COMPARISON: US BIOPHYSICAL PROFILE on DOS: 09/26/24, US BIOPHYSICAL PROFILE on DOS: 09/22/24, US BIOPHYSI JOSE PROFILE on DOS: 09/19/24 TECHNIQUE: Multiple transabdominal real-time grayscale sonographic images through the gravid uterus of the fetus with duplex Doppler color flow and M-mode spectral analysis Findings/Impression: Single live intrauterine in vertex presentation with heart rate of 150 bpm. Biophysical profile was performed with 2 points for respirations, 2 points for movement, 2 points for tone and 2 points for amniotic fluid index. Biophysical profile score of 8/8. Amniotic fluid is within normal limits with AARON 17.5 cm and MVP 5.7 cm. Normal AARON (5-25 cm) Normal MVP (2-8 cm)
--- NOTE | 2024-09-30 17:47 | DVHDS2 ---
Physician Discharge Progress N Final Diagnosis: IUP AT 39WKS GDM,HYPOTHYROID Operations or Procedures: Operations or Procedures NST REVIEWED REACTIVE ,SONO Condition on Discharge: Good Disposition: Home Discharge Instructions: Diet: Cardiac 2g Na,low cholest Activity: No Restrictions, As Tolerated Medications: NA Follow Up Care: Specialist: FU ON WEDNESDAY FOR INDUCTION Discharge Statement: "Patient was advised to return to the ER or call 911 if any headaches, dizziness, shortness of breath, chest pain, abdominal pain, bleeding, fevers, or worsening of medical condition. Patient was counseled about treatment plan, medications, possible side effects, patientverbalized understanding. All questions were answered to the best of my ability. This discharge took greater then 30 minutes in planning, reviewing documentation, counseling the patient, and discussing with other team members." Visit Coding OBGYN Date of Service: September 30, 2024 Billing Provider: MARY PAULINO DO DIGITAL PROGRAM MANAGER Common Visit Codes: [id number] OBS CARE (HIGH) DIGITAL PROGRAM MANAGER Procedure Codes: 42002-63- NON-STRESS TEST MARY PAULINO DO September 30, 2024 17:47
== END 2024-09-30 13:50 | disposition home or self-care (01) ==
LOC: LDRP 09-30 12:28
PROVIDERS: ADMIT Obstetrics & Gynecology; ATTEND Obstetrics & Gynecology
DX: O24.419 Gestational diabetes mellitus in pregnancy, unspecified control (principal); O99.283 Endocrine, nutritional and metabolic diseases complicating pregnancy, third trimester; E03.9 Hypothyroidism, unspecified; Z98.890 Other specified postprocedural states; Z79.899 Other long term (current) drug therapy; Z3A.39 39 weeks gestation of pregnancy
CPT/HCPCS: 76818; 81002; 82948; 94760; G0378; 59025; 76819

== ENCOUNTER 2024-10-03 04:28 | Inpatient (IN) | payer BC ==
[~2024-10-03] VITALS: Ht 160 cm; Wt 84.0 kg
[2024-10-03] MEDS ORDERED: PENICILLIN G POT 5MIL/D5 50ML 50 ML IV ONE (07:30)
[2024-10-03] MEDS ORDERED: BUTORPHANOL TARTRATE 2 MG/1 ML VIAL IV PRN ×2 (07:30)
[2024-10-03] MEDS ORDERED: LIDOCAINE 2%HCL (LOCAL ANESTH.) INJ 20ML MDV IJ PRN (07:30)
--- NOTE | 2024-10-03 08:03 | DVHHP2 ---
OB CC & HPI Date Date of Admission: October 03, 2024 Patient Identification: : 1 Para: 0 EDC: October 08, 2024 EGA: 39.2wks Chief Complaints: Reason for admission: induction of labor Indication for induction: other (GDM, A2 and sharita) History of Present Complaints 34yo IUP@39.2wks presents for scheduled IOL for GDM, A1 and sharita's. Denies UCs/LOF/VB/PRECIADO/vision changes/RUQ pain. Endorses +FM. PNC: Routine PNC at [facility], adequate visits, PNC complicated by GDM, A1 and sharita's. GTT elevated, dating based on 5wk sono, GBS negative. Past Medical History Cardiac: No pertinent Hx Pulmonary: No pertinent Hx Central Nervous System: No pertinent Hx GI: No pertinent Hx Hemotology/Oncology: No pertinent Hx Hepatobiliary: No pertinent Hx Psychiatric: No pertinent Hx Musculoskeletal: No pertinent Hx Rheumotologic: No pertinent Hx Infectious Disease: No peritnent Hx ENT: No pertinent Hx Renal/: No pertinent Hx Endocrine: Other (sharita's) Dermatology: No pertinent Hx Others sjogren syndrome Past Surgical History: No pertinent Hx OB History OB History Care: [facility] Ultrasounds: Normal mid trimester US Obstetrical Complications: Gestational Diabetes (A1) Medical Complications: None Allergies: Coded Allergies: NO KNOWN ALLERGIES (Unverified , 09/19/24) Home Meds Active Scripts Cephalexin (KEFLEX CAPSULE) 250 Mg Cp, 250 MG PO QID for 7 Days, #28 BOTTLE Prov:KEIRY WREN MD 04/03/24 Reported Medications Doxylamine Succinate (Sleep) (Unisom) 25 Mg Tab, 25 MG PO, TAB 09/19/24 Vit W/ Ferrous Fumara ( One Daily) Daily Tab, 1 TAB PO DAILY, #90 TAB 3 Refills 08/15/24 Levothyroxine Sodium (Levothyroxine Sodium) 25 Mcg Tab, 1 TAB PO DAILY, #30 TAB 5 Refills 08/15/24 Current Medications Current Medications Medications (Trade) Dose Ordered Sig/Isaias Route PRN Reason Start Time Stop Time Status Last Admin Lactated Ringer's 1,000 ml @ 125 mls/hr Q8H IV 10/03/24 07:30 Penicillin G Potassium 2670752 units/Dextrose 50 ml @ 100 mls/hr Q4H IV 10/03/24 11:30 Witch Ariana (Tucks) 1 pad PRN PRN TOP PERINEAL AREA DISCOMFORT 10/03/24 07:30 Sodium Lauryl Sulfate (Phisoderm) 240 ml PRN PRN TOP PERINEAL AREA DISCOMFORT 10/03/24 07:30 Benzocaine (Dermoplast) 1 applic PRN PRN TOP PERINEAL AREA DISCOMFORT 10/03/24 07:30 Butorphanol Tartrate (Stadol Injection) 1 mg Q4HPRN PRN IV MODERATE PAIN (4-6 PAIN SCALE) 10/03/24 07:30 Butorphanol Tartrate (Stadol Injection) 2 mg Q4HPRN PRN IV SEVERE PAIN (7-10 PAIN SCALE) 10/03/24 07:30 Lidocaine HCl (Xylocaine) 20 ml ONCE PRN IJ PERINEAL AREA DISCOMFORT 10/03/24 07:30 Misoprostol (Cytotec) 50 mcg Q4HPRN PRN PO CERVICAL RIPENING 10/03/24 08:30 Family & Social History Family/Social History Past Family/Social History: denies Blood Type: B+ Rubella: immune RPR/VDRL: Negative GBS Status: Negative HBsAG: Negative Review of Systems Constitutional: No symptom reported Ears, Nose, & Throat: No symptom reported Eyes: No symptom reported Pulmonary/Respiratory: No symptom reported Cardiovascular: No symptom reported Gastrointestinal: No symptom reported Genitourinary: No symptom reported Musculoskeletal: No symptom reported Skin: No symptom reported Psychiatric: No symptom reported Endocrine: No symptom reported Hemotologic/Lymphatic: No symptom reported OB Admission Exam Physical Exam Vitals: VSS, see CPN EFW in office last week: 6lbs 9oz, vertex HEENT: TMs Normal, Fontanelles Normal, Nasal Mucosa Normal, Eyes non-injected, Oropharynx Normal, PERRLA, Moist Membranes, EOMI Heart: Rhythm Normal Lungs: Clear Abdomen: Gravid Extremities: Normal Reflexes: Normal Pelvic Exam: SVE: 1/40/-3, soft, posterior, vertex Membranes: Intact Heart Rate: 140's Accelerations: Accelerations Present Decelerations: No Decelerations Penitentiary Variability: Average (6-25) Frequency of Contractions: x1 Intensity: Mild OB Plan Plan Admitting Diagnosis: induction of labor Plan: Induction Induction Methd: Misoprostol protocol Other Plan: A: 34yo IUP@39.2wks Induction of Labor GDM, A1 Sharita's Category I EFM Intact Membranes GBS negative P: Admit to L&D Informed consent obtained Discussed risks, benefits, alternatives of IOL with pt. Pt consents to IOL with PO cytotec. Blood glucose checks, fasting and 2 hours postprandial monitoring per order Routine labs ordered Pain mgmt PRN Frequent position changes in and out of bed encouraged Limit SVE unless necessary Intrauterine resuscitation PRN Anticipate MAGGI is co-managing care with Dr. Gutierrez. Visit Coding OBGYN Date of Service: October 03, 2024 Billing Provider: ASHLEY MCCLELLAND CNM WEB DEVELOPMENT DIRECTOR Common Visit Codes: [id number] INP/OBS CARE (HIGH) ASHLEY MCCLELLAND CNM October 03, 2024 08:03
[2024-10-03 08:09] LABS: Basophils # (auto) 0 10 ^3/uL (0-0.2); Basophils % (auto) 0.3 % (0.0-2.0); Eosinophils # (auto) 0.2 10 ^3/uL (0-0.8); Eosinophils % (auto) 1.7 % (0.0-7.0); Hematocrit 30.9 % (36.0-46.0); Hemoglobin 10.5 g/dL (12.2-16.2); Lymphocytes # (auto) 3.3 10 ^3/uL (0.4-5.4); Lymphocytes % (auto) 28.3 % (10.0-50.0); Mean Corpuscular Hemoglobin 28.6 pg (28.0-32.0); Mean Corpuscular Hgb Conc. 33.9 g/dL (32.0-36.0); Mean Corpuscular Volume 84.5 fL (80.0-100.0); Monocytes # (auto) 0.9 10 ^3/uL (0-1.3); Monocytes % (auto) 7.3 % (0.0-12.0); Neutrophils # (auto) 7.3 10 ^3/uL (1.6-8.6); Neutrophils % (auto) 62.4 % (37.0-80.0); Nucleated Red Blood Cells % 0.1 %; Platelet Count (auto) 317 10^3/uL (140-450); Red Blood Cells 3.66 10^6/uL (4.0-5.20); Red Cell Distribution Width 13.8 % (11.8-14.3); White Blood Cell 11.7 10^3/uL (4.4-10.8)
[2024-10-03 08:10] LABS: Urine Amorphous Crystal FEW /hpf (None Seen); Urine Bacteria FEW /hpf (None Seen); Urine Blood Negative /uL (Negative); Urine Clarity Turbid (Clear); Urine Color Light-Yellow (Yellow); Urine Protein, UAD Negative (Negative); Urine Specific Gravity 1.015 (1.001-1.035); Urine Squamous Epithelial Cell FEW /hpf (<5); Urine Urobilinogen Normal (Negative); Urine WBC 7 /HPF (0-5); Urine pH 6.5 (5.0-9.0)
[2024-10-03 08:18] LABS: INR 0.89 (0.9-1.15); Partial Thromboplastin Time 28.2 SEC (24.5-34.5); Prothrombin Time 9.5 sec (9.3-11.8)
[2024-10-03 08:23] LABS: Alanine Aminotransferase 17 U/L (7-40); Albumin 4.1 g/dL (3.2-4.8); Anion Gap 12 (5-15); Aspartate Aminotransferase 17 U/L (13-40); BUN/Creatinine Ratio 21.4 (10.0-20.0); Blood Urea Nitrogen 15 mg/dL (9-23); Calcium 9.2 mg/dL (8.7-10.4); Chloride 107 mmol/L (98-107); Potassium 3.7 mmol/L (3.5-5.1); Sodium 137 mmol/L (136-145); Total Protein 7.4 g/dL (5.7-8.2)
[2024-10-03 08:24] LABS: Bilirubin, Total 0.4 mg/dL (0.2-1.0)
[2024-10-03 08:31] LABS: Amphetamine Screen, Urine Neg (NEGATIVE); Barbiturate Scree,Urine Neg (NEGATIVE); Benzodiazephine Screen, Urine Neg (NEGATIVE); Cannabinoid Screen, Urine Neg (NEGATIVE); Cocaine Screen, Urine Neg (NEGATIVE); Opiate Scree,Urine Neg (NEGATIVE); Phencyclidine Screen, Urine Neg (NEGATIVE)
[2024-10-03 08:31] LABS: Alkaline Phosphatase 221 U/L (46-116); Carbon Dioxide 18 mmol/L (20-31); Glucose 112 mg/dL (74-106)
[2024-10-03] MEDS: miSOPROStol 50 MCG per PRE-CUT 1/2 TAB PO PRN (09:05)
[2024-10-03] MEDS: LACTATED RINGER'S 1,000 ML IV SCH (09:06)
[2024-10-03] MEDS ORDERED: PENICILLIN G POTASSIUM 2,500,000 UNITS in D5W 5% 50 ML IV SCH (11:30)
--- NOTE | 2024-10-03 13:15 | DVHPN2 ---
CNM Labor Progress Note Date and Time Seen Date Seen: October 03, 2024 Time Seen: 13:00 Subjective Subjective Comment Pt feels abdominal tightening and has more spotting. Pt declines ceballos balloon as CRB after discussion and SVE, wants to continue with cytotec then maybe ceballos CRB at the next check. Objective Vital Signs VSS, see CPN Monitoring Method Monitoring Method: External Heart Rate Heart Rate Baseline: 140 Heart Rate Variability: Moderate Presence of FHR Accelerations: Yes Presence of FHR Decelerations: No Changes in Trends of Patterns: No Are all 5 Components of the FH: Yes Contractions Contractions Frequency: Other (q5-7 min) Duration of Contraction: 70 Contractions Intensity: Mild Contractions Resting Tone: Relaxed Membranes Membranes: Intact Vaginal Exam Vag Exam Deferred: No Vaginal Exam Dilation: 2 Vaginal Exam Effacement: 50 Vaginal Exam Station: -2 Vaginal Exam Presentation: VTX Vaginal Exam Show: Moderate Medications Medications - Pitocin: No Medications - Pain Medications: PRN Medication - Epidural: No Medication - Other s/p 1 dose of PO cytotec Lab Results Lab Results Current Medications Medications (Trade) Dose Ordered Sig/Isaias Start Time Stop Time Status Last Admin Dose Admin Lactated Ringer's 1,000 ml @ 125 mls/hr Q8H 10/03/24 07:30 10/03/24 09:06 125 MLS/HR Olivia Lane (Tucks) 1 pad PRN PRN 10/03/24 07:30 Sodium Lauryl Sulfate (Phisoderm) 240 ml PRN PRN 10/03/24 07:30 Benzocaine (Dermoplast) 1 applic PRN PRN 10/03/24 07:30 Butorphanol Tartrate (Stadol Injection) 1 mg Q4HPRN PRN 10/03/24 07:30 Butorphanol Tartrate (Stadol Injection) 2 mg Q4HPRN PRN 10/03/24 07:30 Lidocaine HCl (Xylocaine) 20 ml ONCE PRN 10/03/24 07:30 Misoprostol (Cytotec) 50 mcg Q4HPRN PRN 10/03/24 08:30 10/03/24 09:05 50 MCG Laboratory Tests Test 10/03/24 07:38 10/03/24 07:25 Range/Units White Blood Count 11.7 H 4.4-10.8 10^3/uL Red Blood Count 3.66 L 4.0-5.20 10^6/uL Hemoglobin 10.5 L 12.2-16.2 g/dL Hematocrit 30.9 L 36.0-46.0 % Mean Corpuscular Volume 84.5 80.0-100.0 fL Mean Corpuscular Hemoglobin 28.6 28.0-32.0 pg Mean Corpuscular Hemoglobin Concent 33.9 32.0-36.0 g/dL Red Cell Distribution Width 13.8 11.8-14.3 % Platelet Count 317 140-450 10^3/uL Mean Platelet Volume 7.9 6.9-10.8 fL Neutrophils (%) (Auto) 62.4 37.0-80.0 % Lymphocytes (%) (Auto) 28.3 10.0-50.0 % Monocytes (%) (Auto) 7.3 0.0-12.0 % Eosinophils (%) (Auto) 1.7 0.0-7.0 % Basophils (%) (Auto) 0.3 0.0-2.0 % Neutrophils # (Auto) 7.3 1.6-8.6 10 ^3/uL Lymphocytes # (Auto) 3.3 0.4-5.4 10 ^3/uL Monocytes # (Auto) 0.9 0-1.3 10 ^3/uL Eosinophils # (Auto) 0.2 0-0.8 10 ^3/uL Basophils # (Auto) 0 0-0.2 10 ^3/uL Nucleated Red Blood Cells 0.1 % Prothrombin Time 9.5 9.3-11.8 sec Prothrombin Time INR 0.89 L 0.9-1.15 Activated Partial Thromboplast Time 28.2 24.5-34.5 SEC Sodium Level 137 136-145 mmol/L Potassium Level 3.7 3.5-5.1 mmol/L Chloride Level 107 98-107 mmol/L Carbon Dioxide Level 18 L 20-31 mmol/L Anion Gap 12 5-15 Blood Urea Nitrogen 15 9-23 mg/dL Creatinine 0.70 0.550-1.02 mg/dL Glomerular Filtration Rate Calc 118 >90 mL/min BUN/Creatinine Ratio 21.4 H 10.0-20.0 Serum Glucose 112 H 74-106 mg/dL Calcium Level 9.2 8.7-10.4 mg/dL Total Bilirubin 0.4 0.2-1.0 mg/dL Aspartate Amino Transferase (AST) 17 13-40 U/L Alanine Aminotransferase (ALT) 17 7-40 U/L Alkaline Phosphatase 221 H 46-116 U/L Total Protein 7.4 5.7-8.2 g/dL Albumin 4.1 3.2-4.8 g/dL Treponema pallidum Antibody Non-reactive Negative Hepatitis C Antibody Negative Negative Urine Color Light-yellow Yellow Urine Clarity Turbid H Clear Urine pH 6.5 5.0-9.0 Urine Specific [place] 1.015 1.001-1.035 Urine Protein Negative Negative Urine Ketones Negative Negative Urine Blood Negative Negative /uL Urine Nitrite Negative Negative Urine Bilirubin Negative Negative Urine Urobilinogen Normal Negative mg/dL Urine Leukocyte Esterase 1+ Negative /uL Urine RBC 2 0 - 4 /hpf Urine Microscopic WBC 7 H 0-5 /HPF Urine Squamous Epithelial Cells Few <5 /hpf Urine Amorphous Crystals Few None Seen /hpf Urine Bacteria Few H None Seen /hpf Urine Glucose Normal Normal mg/dL Urine Opiates Screen Neg NEGATIVE Urine Fentanyl Screen Neg NEGATIVE Urine Barbiturates Screen Neg NEGATIVE Urine Phencyclidine Screen Neg NEGATIVE Urine Amphetamines Screen Neg NEGATIVE Urine Benzodiazepines Screen Neg NEGATIVE Urine Cocaine Screen Neg NEGATIVE Urine Cannabinoids Screen Neg NEGATIVE Assessment Assessment 34yo IUP@39.2wks Induction of Labor GDM, A1 Demarcus's Category I EFM Intact Membranes GBS negative Plan Plan Continue with PO cytotec Blood glucose checks, fasting and 2 hours postprandial monitoring per order Pain mgmt PRN Frequent position changes in and out of bed encouraged Limit SVE unless necessary Intrauterine resuscitation PRN Anticipate MAGGI is co-managing care with Dr. Gutierrez. Plan discussed with: Patient, Spouse Visit Coding OBGYN Date of Service: October 03, 2024 Billing Provider: ASHLEY MCCLELLAND CNM HONEY LIQUEFIER Common Visit Codes: [id number] INP/OBS CARE(HIGH) ASHLEY MCCLELLAND CNM October 03, 2024 13:15
[2024-10-03] MEDS: CALCIUM CARB 500 MG CHEW TAB PO ONE (15:04)
--- NOTE | 2024-10-03 17:41 | DVHPN2 ---
CNM Labor Progress Note Date and Time Seen Date Seen: October 03, 2024 Time Seen: 17:30 Subjective Patient reports: No new complaints Subjective Comment Pt consents to ceballos CRB now after discussion and SVE. Objective Vital Signs VSS, see CPN Monitoring Method Monitoring Method: External Heart Rate Heart Rate Baseline: 140 Heart Rate Variability: Moderate Presence of FHR Accelerations: Yes Presence of FHR Decelerations: No Changes in Trends of Patterns: No Are all 5 Components of the FH: Yes Contractions Contractions Frequency: Other (irregular) Duration of Contraction: 80 Contractions Intensity: Moderate Contractions Resting Tone: Relaxed Membranes Membranes: Intact Vaginal Exam Vag Exam Deferred: No (ceballos CRB placed with 60ml sterile fluid) Vaginal Exam Dilation: 3 Vaginal Exam Effacement: 50 Vaginal Exam Station: -2 Vaginal Exam Presentation: VTX Vaginal Exam Show: Moderate Medications Medications - Pitocin: No Medications - Pain Medications: PRN Medication - Epidural: No Medication - Other s/p 2 doses of cytotec PO Lab Results Lab Results Current Medications Medications (Trade) Dose Ordered Sig/Isaias Start Time Stop Time Status Last Admin Dose Admin Lactated Ringer's 1,000 ml @ 125 mls/hr Q8H 10/03/24 07:30 10/03/24 09:06 125 MLS/HR Witch Ariana (Tucks) 1 pad PRN PRN 10/03/24 07:30 Sodium Lauryl Sulfate (Phisoderm) 240 ml PRN PRN 10/03/24 07:30 Benzocaine (Dermoplast) 1 applic PRN PRN 10/03/24 07:30 Butorphanol Tartrate (Stadol Injection) 1 mg Q4HPRN PRN 10/03/24 07:30 Butorphanol Tartrate (Stadol Injection) 2 mg Q4HPRN PRN 10/03/24 07:30 Lidocaine HCl (Xylocaine) 20 ml ONCE PRN 10/03/24 07:30 Misoprostol (Cytotec) 50 mcg Q4HPRN PRN 10/03/24 08:30 10/03/24 13:30 50 MCG Calcium Carbonate (Tums) 1,000 mg ONCE ONCE 10/03/24 15:00 10/03/24 15:01 DC 10/03/24 15:04 1,000 MG Oxytocin 1,000 ml @ 6 ml/hr Q24H 10/03/24 18:15 Terbutaline Sulfate (Brethine Inj) 0.25 mg ONCE PRN 10/03/24 18:15 Oxytocin 500 ml @ 999 mls/hr Q31M ONCE 10/03/24 18:15 10/03/24 18:45 DC Oxytocin 500 ml @ 125 mls/hr Q4H ONCE 10/03/24 18:45 10/03/24 22:44 Laboratory Tests Test 10/03/24 20:00 10/03/24 07:38 10/03/24 07:25 Range/Units POC Glucose 78 70-106 mg/dl White Blood Count 11.7 H 4.4-10.8 10^3/uL Red Blood Count 3.66 L 4.0-5.20 10^6/uL Hemoglobin 10.5 L 12.2-16.2 g/dL Hematocrit 30.9 L 36.0-46.0 % Mean Corpuscular Volume 84.5 80.0-100.0 fL Mean Corpuscular Hemoglobin 28.6 28.0-32.0 pg Mean Corpuscular Hemoglobin Concent 33.9 32.0-36.0 g/dL Red Cell Distribution Width 13.8 11.8-14.3 % Platelet Count 317 140-450 10^3/uL Mean Platelet Volume 7.9 6.9-10.8 fL Neutrophils (%) (Auto) 62.4 37.0-80.0 % Lymphocytes (%) (Auto) 28.3 10.0-50.0 % Monocytes (%) (Auto) 7.3 0.0-12.0 % Eosinophils (%) (Auto) 1.7 0.0-7.0 % Basophils (%) (Auto) 0.3 0.0-2.0 % Neutrophils # (Auto) 7.3 1.6-8.6 10 ^3/uL Lymphocytes # (Auto) 3.3 0.4-5.4 10 ^3/uL Monocytes # (Auto) 0.9 0-1.3 10 ^3/uL Eosinophils # (Auto) 0.2 0-0.8 10 ^3/uL Basophils # (Auto) 0 0-0.2 10 ^3/uL Nucleated Red Blood Cells 0.1 % Prothrombin Time 9.5 9.3-11.8 sec Prothrombin Time INR 0.89 L 0.9-1.15 Activated Partial Thromboplast Time 28.2 24.5-34.5 SEC Sodium Level 137 136-145 mmol/L Potassium Level 3.7 3.5-5.1 mmol/L Chloride Level 107 98-107 mmol/L Carbon Dioxide Level 18 L 20-31 mmol/L Anion Gap 12 5-15 Blood Urea Nitrogen 15 9-23 mg/dL Creatinine 0.70 0.550-1.02 mg/dL Glomerular Filtration Rate Calc 118 >90 mL/min BUN/Creatinine Ratio 21.4 H 10.0-20.0 Serum Glucose 112 H 74-106 mg/dL Calcium Level 9.2 8.7-10.4 mg/dL Total Bilirubin 0.4 0.2-1.0 mg/dL Aspartate Amino Transferase (AST) 17 13-40 U/L Alanine Aminotransferase (ALT) 17 7-40 U/L Alkaline Phosphatase 221 H 46-116 U/L Total Protein 7.4 5.7-8.2 g/dL Albumin 4.1 3.2-4.8 g/dL Treponema pallidum Antibody Non-reactive Negative Hepatitis C Antibody Negative Negative Urine Color Light-yellow Yellow Urine Clarity Turbid H Clear Urine pH 6.5 5.0-9.0 Urine Specific [place] 1.015 1.001-1.035 Urine Protein Negative Negative Urine Ketones Negative Negative Urine Blood Negative Negative /uL Urine Nitrite Negative Negative Urine Bilirubin Negative Negative Urine Urobilinogen Normal Negative mg/dL Urine Leukocyte Esterase 1+ Negative /uL Urine RBC 2 0 - 4 /hpf Urine Microscopic WBC 7 H 0-5 /HPF Urine Squamous Epithelial Cells Few <5 /hpf Urine Amorphous Crystals Few None Seen /hpf Urine Bacteria Few H None Seen /hpf Urine Glucose Normal Normal mg/dL Urine Opiates Screen Neg NEGATIVE Urine Fentanyl Screen Neg NEGATIVE Urine Barbiturates Screen Neg NEGATIVE Urine Phencyclidine Screen Neg NEGATIVE Urine Amphetamines Screen Neg NEGATIVE Urine Benzodiazepines Screen Neg NEGATIVE Urine Cocaine Screen Neg NEGATIVE Urine Cannabinoids Screen Neg NEGATIVE Assessment Assessment 34yo IUP@39.2wks Induction of Labor GDM, A1 Demarcus's Category I EFM Intact Membranes GBS negative Plan Plan RN to apply traction to ceballos CRB q1 hour Start IV pitocin to continue IOL Blood glucose checks now q4hrs then in active labor q2hrs monitoring per order Pain mgmt PRN Frequent position changes in and out of bed encouraged Limit SVE unless necessary Intrauterine resuscitation PRN Anticipate MAGGI is co-managing care with Dr. Gutierrez. Plan discussed with: Patient, Spouse Visit Coding OBGYN Date of Service: October 03, 2024 Billing Provider: ASHLEY MCCLELLAND CNM [employer] Common Visit Codes: [id number] INP/OBS CARE(HIGH) ASHLEY MCCLELLAND CNM October 03, 2024 17:41
[2024-10-03] MEDS ORDERED: TERBUTALINE SULFATE 1 MG/ML 1ML VIAL SC PRN (18:15)
[2024-10-03] MEDS: LACTATED RINGER'S 1,000 ML IV ONE (22:05)
[2024-10-03] MEDS: ROPIVACAINE HCL 200 ML ONE (22:09)
[2024-10-03] MEDS: ONDANSETRON HCL 4 MG/2 ML VIAL IV PRN (22:22)
[2024-10-03] MEDS: LACT. RINGERS/OXYTOCIN 20UNITS 1,000 ML IV SCH (23:00)
[2024-10-03] MEDS: DERMOPLAST 60ML BOTTLE TOP PRN (23:28)
[2024-10-03] MEDS: WITCH HAZEL-GLYCERIN PAD TOP PRN (23:28)
[2024-10-03] MEDS: PHISODERM TOP SOLN 240ML BTL TOP PRN (23:28)
[2024-10-04] MEDS: FAMOTIDINE (10MG/ML) 2ML VL IV SCH (01:49)
--- NOTE | 2024-10-04 01:59 | DVHPN2 ---
CNM Labor Progress Note Date and Time Seen Date Seen: October 04, 2024 Time Seen: 01:38 Subjective Subjective Comment Pt is comfortable after epidural, denies pain or pressure. Objective Vital Signs VSS, see CPN Monitoring Method Monitoring Method: External Heart Rate Heart Rate Baseline: 140 Heart Rate Variability: Moderate Presence of FHR Accelerations: Yes Presence of FHR Decelerations: No Changes in Trends of Patterns: No Are all 5 Components of the FH: Yes Contractions Contractions Frequency: Other (q3-4 min) Duration of Contraction: 80 Contractions Intensity: Moderate Contractions Resting Tone: Relaxed Vaginal Exam Vag Exam Deferred: No Vaginal Exam Dilation: 5 Vaginal Exam Effacement: 70 Vaginal Exam Station: -2 Vaginal Exam Presentation: VTX Vaginal Exam Show: Moderate Medications Medications - Pitocin: Yes (8mu) Medications - Pain Medications: PRN Medication - Epidural: No Medication - Other s/p 2 doses of cytotec Lab Results Lab Results Current Medications Medications (Trade) Dose Ordered Sig/Isaias Start Time Stop Time Status Last Admin Dose Admin Lactated Ringer's 1,000 ml @ 125 mls/hr Q8H 10/03/24 07:30 10/03/24 22:07 125 MLS/HR Witch Ariana (Tucks) 1 pad PRN PRN 10/03/24 07:30 10/03/24 23:28 1 PAD Sodium Lauryl Sulfate (Phisoderm) 240 ml PRN PRN 10/03/24 07:30 10/03/24 23:28 240 ML Benzocaine (Dermoplast) 1 applic PRN PRN 10/03/24 07:30 10/03/24 23:28 1 APPLIC Butorphanol Tartrate (Stadol Injection) 1 mg Q4HPRN PRN 10/03/24 07:30 Butorphanol Tartrate (Stadol Injection) 2 mg Q4HPRN PRN 10/03/24 07:30 Lidocaine HCl (Xylocaine) 20 ml ONCE PRN 10/03/24 07:30 Misoprostol (Cytotec) 50 mcg Q4HPRN PRN 10/03/24 08:30 10/03/24 13:30 50 MCG Calcium Carbonate (Tums) 1,000 mg ONCE ONCE 10/03/24 15:00 10/03/24 15:01 DC 10/03/24 15:04 1,000 MG Oxytocin 1,000 ml @ 6 ml/hr Q24H 10/03/24 18:15 10/03/24 23:00 6 ML/HR Terbutaline Sulfate (Brethine Inj) 0.25 mg ONCE PRN 10/03/24 18:15 Oxytocin 500 ml @ 999 mls/hr Q31M ONCE 10/03/24 18:15 10/03/24 18:45 DC Oxytocin 500 ml @ 125 mls/hr Q4H ONCE 10/03/24 18:45 10/03/24 22:44 DC Naloxone HCl (Narcan) 0.2 mg PRN ONCE 10/03/24 21:15 10/03/24 21:19 DC Ephedrine Sulfate (ePHEDrine SULFATE) 10 mg PRN ONCE 10/03/24 21:15 10/03/24 21:19 DC Lidocaine HCl (Xylocaine-Pf 2% Injection) 10 ml ONCE ONCE 10/03/24 21:15 10/03/24 21:19 DC Lactated Ringer's 1,000 ml @ 1,000 mls/hr Q1H ONCE 10/03/24 21:15 10/03/24 22:14 DC 10/03/24 22:05 1,000 MLS/HR Ondansetron HCl (Zofran) 4 mg Q4HPRN PRN 10/03/24 22:15 10/03/24 22:22 4 MG Famotidine (Pepcid Injection) 20 mg Q12HR 10/04/24 01:30 10/04/24 01:49 20 MG Laboratory Tests Test 10/03/24 23:39 10/03/24 07:38 10/03/24 07:25 Range/Units POC Glucose 77 70-106 mg/dl White Blood Count 11.7 H 4.4-10.8 10^3/uL Red Blood Count 3.66 L 4.0-5.20 10^6/uL Hemoglobin 10.5 L 12.2-16.2 g/dL Hematocrit 30.9 L 36.0-46.0 % Mean Corpuscular Volume 84.5 80.0-100.0 fL Mean Corpuscular Hemoglobin 28.6 28.0-32.0 pg Mean Corpuscular Hemoglobin Concent 33.9 32.0-36.0 g/dL Red Cell Distribution Width 13.8 11.8-14.3 % Platelet Count 317 140-450 10^3/uL Mean Platelet Volume 7.9 6.9-10.8 fL Neutrophils (%) (Auto) 62.4 37.0-80.0 % Lymphocytes (%) (Auto) 28.3 10.0-50.0 % Monocytes (%) (Auto) 7.3 0.0-12.0 % Eosinophils (%) (Auto) 1.7 0.0-7.0 % Basophils (%) (Auto) 0.3 0.0-2.0 % Neutrophils # (Auto) 7.3 1.6-8.6 10 ^3/uL Lymphocytes # (Auto) 3.3 0.4-5.4 10 ^3/uL Monocytes # (Auto) 0.9 0-1.3 10 ^3/uL Eosinophils # (Auto) 0.2 0-0.8 10 ^3/uL Basophils # (Auto) 0 0-0.2 10 ^3/uL Nucleated Red Blood Cells 0.1 % Prothrombin Time 9.5 9.3-11.8 sec Prothrombin Time INR 0.89 L 0.9-1.15 Activated Partial Thromboplast Time 28.2 24.5-34.5 SEC Sodium Level 137 136-145 mmol/L Potassium Level 3.7 3.5-5.1 mmol/L Chloride Level 107 98-107 mmol/L Carbon Dioxide Level 18 L 20-31 mmol/L Anion Gap 12 5-15 Blood Urea Nitrogen 15 9-23 mg/dL Creatinine 0.70 0.550-1.02 mg/dL Glomerular Filtration Rate Calc 118 >90 mL/min BUN/Creatinine Ratio 21.4 H 10.0-20.0 Serum Glucose 112 H 74-106 mg/dL Calcium Level 9.2 8.7-10.4 mg/dL Total Bilirubin 0.4 0.2-1.0 mg/dL Aspartate Amino Transferase (AST) 17 13-40 U/L Alanine Aminotransferase (ALT) 17 7-40 U/L Alkaline Phosphatase 221 H 46-116 U/L Total Protein 7.4 5.7-8.2 g/dL Albumin 4.1 3.2-4.8 g/dL Treponema pallidum Antibody Non-reactive Negative Hepatitis C Antibody Negative Negative Urine Color Light-yellow Yellow Urine Clarity Turbid H Clear Urine pH 6.5 5.0-9.0 Urine Specific [place] 1.015 1.001-1.035 Urine Protein Negative Negative Urine Ketones Negative Negative Urine Blood Negative Negative /uL Urine Nitrite Negative Negative Urine Bilirubin Negative Negative Urine Urobilinogen Normal Negative mg/dL Urine Leukocyte Esterase 1+ Negative /uL Urine RBC 2 0 - 4 /hpf Urine Microscopic WBC 7 H 0-5 /HPF Urine Squamous Epithelial Cells Few <5 /hpf Urine Amorphous Crystals Few None Seen /hpf Urine Bacteria Few H None Seen /hpf Urine Glucose Normal Normal mg/dL Urine Opiates Screen Neg NEGATIVE Urine Fentanyl Screen Neg NEGATIVE Urine Barbiturates Screen Neg NEGATIVE Urine Phencyclidine Screen Neg NEGATIVE Urine Amphetamines Screen Neg NEGATIVE Urine Benzodiazepines Screen Neg NEGATIVE Urine Cocaine Screen Neg NEGATIVE Urine Cannabinoids Screen Neg NEGATIVE Assessment Assessment 34yo IUP@39.3wks Induction of Labor GDM, A1 Demarcus's Category I EFM Intact Membranes GBS negative Plan Plan Continue with IV pitocin per order Blood glucose checks now q4hrs then in active labor q2hrs monitoring per order Pain mgmt: epidural in place Frequent position changes in bed with peanut ball encouraged Limit SVE unless necessary Intrauterine resuscitation PRN Anticipate MAGGI is co-managing care with Dr. Gutierrez. Plan discussed with: Patient Visit Coding OBGYN Date of Service: October 04, 2024 Billing Provider: ASHLEY MCCLELLAND CNM [employer] OPERATOR Common Visit Codes: [id number] INP/OBS CARE(HIGH) ASHLEY MCCLELLAND CNM October 04, 2024 01:59
[2024-10-04] MEDS: LEVOTHYROXINE SODIUM 25 MCG TAB PO SCH (05:40)
--- NOTE | 2024-10-04 07:45 | DVHPN2 ---
Chief Complaints Patient reports: No new complaints Nursing reports: No new complaints Objective Medications Current Medications Medications (Trade) Dose Ordered Sig/Isaias Route PRN Reason Start Time Stop Time Status Last Admin Famotidine (Pepcid Injection) 20 mg Q12HR IV 10/04/24 01:30 10/04/24 01:49 Levothyroxine Sodium (Synthroid Tablet) 25 mcg QAM@0600 PO 10/04/24 06:00 10/04/24 05:40 Misoprostol (Cytotec) 50 mcg Q4HPRN PRN PO CERVICAL RIPENING 10/03/24 08:30 10/03/24 13:30 Ondansetron HCl (Zofran) 4 mg Q4HPRN PRN IV NAUSEA / VOMITING 10/03/24 22:15 10/04/24 03:53 Oxytocin 1,000 ml @ 6 ml/hr Q24H IV 10/03/24 18:15 10/03/24 23:00 Penicillin G Potassium [id number] units/Dextrose 50 ml @ 100 mls/hr Q4H IV 10/03/24 11:30 Cancel Terbutaline Sulfate (Brethine Inj) 0.25 mg ONCE PRN SC Uterine tachysystole 10/03/24 18:15 Others ve -5cm/70/-2 Studies Laboratory Tests 10/03/24 07:38 Test 10/03/24 07:38 Range/Units Serum Glucose 112 H 74-106 mg/dL Ass/Plan Assessment iol for gdm,ama Plan rec cytotecx2 and ceballos ballon,requested to have ceballos removed at 10pm she rec epidural and was oin pitocin from 11 to 6 am maxed out ,uc pattern not good will give pitocin break and start her in 2 hrs with fresh bag of pitocin Visit Coding OBGYN Date of Service: October 04, 2024 Billing Provider: MARY PAULINO DO SUPERVISOR [employer]ER Common Visit Codes: [id number] INP/OBS CARE(HIGH) SUPERVISOR [employer]ERTIL[employer]ER Procedure Codes: [id number] NON-STRESS TEST MARY PAULINO DO October 04, 2024 07:45
[2024-10-04] MEDS ORDERED: ACETAMINOPHEN 325 MG TAB PO PRN (08:15)
[2024-10-04] MEDS: D5W/LACTATED RINGERS 1,000 ML IV SCH (13:05)
[2024-10-04] MEDS: ROPIVACAINE HCL 200 ML ONE (13:07)
[2024-10-04] MEDS: ceFAZolin 2 GM/D5W50ml 50 ML IV ONE (14:21)
--- NOTE | 2024-10-04 14:27 | DVHPN2 ---
Chief Complaints Patient reports: No new complaints Nursing reports: No new complaints Objective Medications Current Medications Medications (Trade) Dose Ordered Sig/Isaias Route PRN Reason Start Time Stop Time Status Last Admin Acetaminophen (Tylenol Tablet) 650 mg Q4HP PRN PO MILD PAIN (1-3 PAIN SCALE) 10/04/24 08:15 Cefazolin Sodium 50 ml @ 100 mls/hr Q8HR IV 10/04/24 22:00 Dextrose/Lactated Ringer's 1,000 ml @ 125 mls/hr Q8H IV 10/04/24 08:15 10/04/24 13:05 Famotidine (Pepcid Injection) 20 mg Q12HR IV 10/04/24 01:30 10/04/24 13:37 Levothyroxine Sodium (Synthroid Tablet) 25 mcg QAM@0600 PO 10/04/24 06:00 10/04/24 05:40 Ondansetron HCl (Zofran) 4 mg Q4HPRN PRN IV NAUSEA / VOMITING 10/03/24 22:15 10/04/24 08:09 Oxytocin 1,000 ml @ 6 ml/hr Q24H IV 10/03/24 18:15 10/04/24 09:35 Terbutaline Sulfate (Brethine Inj) 0.25 mg ONCE PRN SC Uterine tachysystole 10/03/24 18:15 Others ve-5cm/70/-1 Studies Laboratory Tests 10/03/24 07:38 Test 10/03/24 07:38 Range/Units Serum Glucose 112 H 74-106 mg/dL Ass/Plan Assessment iol for gdm,ama Plan pt had srom clear fld start ancef iupc placed cont with pitocin Visit Coding OBGYN Date of Service: October 04, 2024 Billing Provider: MARY PAULINO DO LEATHER COLORER Common Visit Codes: [id number] INP/OBS CARE(HIGH) [employer]ATHER COLORER Procedure Codes: [id number] NON-STRESS TEST MARY PAULINO DO October 04, 2024 14:27
--- NOTE | 2024-10-04 16:17 | DVHPN2 ---
[facility] Labor Progress Note Date and Time Seen Date Seen: October 04, 2024 Time Seen: 16:22 Subjective Patient reports: No new complaints Subjective Comment Pt comfortable with epidural. States she feels itchy but does not want medication. Objective Vital Signs VSS, see chart Afebrile Monitoring Method Monitoring Method: Internal Heart Rate Heart Rate Baseline: 150 Heart Rate Variability: Moderate Presence of FHR Accelerations: Yes Presence of FHR Decelerations: No Changes in Trends of Patterns: No Are all 5 Components of the FH: Yes Contractions Contractions Frequency: Other (q2-3min) Duration of Contraction: 80 Contractions Intensity: Moderate Contractions Resting Tone: Relaxed Membranes Membranes: Ruptured Amniotic Fluid Color: Clear Vaginal Exam Vag Exam Deferred: No (by Dr. Gutierrez and [facility]) Vaginal Exam Dilation: 5 Vaginal Exam Effacement: 90 Vaginal Exam Station: -1 Vaginal Exam Presentation: VTX Vaginal Exam Show: Small Medications Medications - Pitocin: Yes (30 mU/min) Medication - Epidural: Yes Lab Results Lab Results Current Medications Medications (Trade) Dose Ordered Sig/Isaias Start Time Stop Time Status Last Admin Dose Admin Lactated Ringer's 1,000 ml @ 125 mls/hr Q8H 10/03/24 07:30 10/04/24 05:47 125 MLS/HR Witch Ariana (Tucks) 1 pad PRN PRN 10/03/24 07:30 10/03/24 23:28 1 PAD Sodium Lauryl Sulfate (Phisoderm) 240 ml PRN PRN 10/03/24 07:30 10/03/24 23:28 240 ML Benzocaine (Dermoplast) 1 applic PRN PRN 10/03/24 07:30 10/03/24 23:28 1 APPLIC Butorphanol Tartrate (Stadol Injection) 1 mg Q4HPRN PRN 10/03/24 07:30 Butorphanol Tartrate (Stadol Injection) 2 mg Q4HPRN PRN 10/03/24 07:30 Lidocaine HCl (Xylocaine) 20 ml ONCE PRN 10/03/24 07:30 Misoprostol (Cytotec) 50 mcg Q4HPRN PRN 10/03/24 08:30 10/03/24 13:30 50 MCG Calcium Carbonate (Tums) 1,000 mg ONCE ONCE 10/03/24 15:00 10/03/24 15:01 DC 10/03/24 15:04 1,000 MG Oxytocin 1,000 ml @ 6 ml/hr Q24H 10/03/24 18:15 10/04/24 09:35 6 ML/HR Terbutaline Sulfate (Brethine Inj) 0.25 mg ONCE PRN 10/03/24 18:15 Oxytocin 500 ml @ 999 mls/hr Q31M ONCE 10/03/24 18:15 10/03/24 18:45 DC Oxytocin 500 ml @ 125 mls/hr Q4H ONCE 10/03/24 18:45 10/03/24 22:44 DC Naloxone HCl (Narcan) 0.2 mg PRN ONCE 10/03/24 21:15 10/03/24 21:19 DC Ephedrine Sulfate (ePHEDrine SULFATE) 10 mg PRN ONCE 10/03/24 21:15 10/03/24 21:19 DC Lidocaine HCl (Xylocaine-Pf 2% Injection) 10 ml ONCE ONCE 10/03/24 21:15 10/03/24 21:19 DC Lactated Ringer's 1,000 ml @ 1,000 mls/hr Q1H ONCE 10/03/24 21:15 10/03/24 22:14 DC 10/03/24 22:05 1,000 MLS/HR Ondansetron HCl (Zofran) 4 mg Q4HPRN PRN 10/03/24 22:15 10/04/24 14:53 4 MG Famotidine (Pepcid Injection) 20 mg Q12HR 10/04/24 01:30 10/04/24 13:37 20 MG Levothyroxine Sodium (Synthroid Tablet) 25 mcg QAM@0600 10/04/24 06:00 10/04/24 05:40 25 MCG Acetaminophen (Tylenol Tablet) 650 mg Q4HP PRN 10/04/24 08:15 Dextrose/Lactated Ringer's 1,000 ml @ 125 mls/hr Q8H 10/04/24 08:15 10/04/24 13:05 125 MLS/HR Cefazolin Sodium/ Dextrose 50 ml @ 50 mls/hr ONCE ONCE 10/04/24 14:00 10/04/24 14:59 DC 10/04/24 14:21 50 MLS/HR Cefazolin Sodium 50 ml @ 100 mls/hr Q8HR 10/04/24 22:00 Laboratory Tests Test 10/04/24 13:02 10/03/24 07:38 10/03/24 07:25 Range/Units POC Glucose 82 70-106 mg/dl White Blood Count 11.7 H 4.4-10.8 10^3/uL Red Blood Count 3.66 L 4.0-5.20 10^6/uL Hemoglobin 10.5 L 12.2-16.2 g/dL Hematocrit 30.9 L 36.0-46.0 % Mean Corpuscular Volume 84.5 80.0-100.0 fL Mean Corpuscular Hemoglobin 28.6 28.0-32.0 pg Mean Corpuscular Hemoglobin Concent 33.9 32.0-36.0 g/dL Red Cell Distribution Width 13.8 11.8-14.3 % Platelet Count 317 140-450 10^3/uL Mean Platelet Volume 7.9 6.9-10.8 fL Neutrophils (%) (Auto) 62.4 37.0-80.0 % Lymphocytes (%) (Auto) 28.3 10.0-50.0 % Monocytes (%) (Auto) 7.3 0.0-12.0 % Eosinophils (%) (Auto) 1.7 0.0-7.0 % Basophils (%) (Auto) 0.3 0.0-2.0 % Neutrophils # (Auto) 7.3 1.6-8.6 10 ^3/uL Lymphocytes # (Auto) 3.3 0.4-5.4 10 ^3/uL Monocytes # (Auto) 0.9 0-1.3 10 ^3/uL Eosinophils # (Auto) 0.2 0-0.8 10 ^3/uL Basophils # (Auto) 0 0-0.2 10 ^3/uL Nucleated Red Blood Cells 0.1 % Prothrombin Time 9.5 9.3-11.8 sec Prothrombin Time INR 0.89 L 0.9-1.15 Activated Partial Thromboplast Time 28.2 24.5-34.5 SEC Sodium Level 137 136-145 mmol/L Potassium Level 3.7 3.5-5.1 mmol/L Chloride Level 107 98-107 mmol/L Carbon Dioxide Level 18 L 20-31 mmol/L Anion Gap 12 5-15 Blood Urea Nitrogen 15 9-23 mg/dL Creatinine 0.70 0.550-1.02 mg/dL Glomerular Filtration Rate Calc 118 >90 mL/min BUN/Creatinine Ratio 21.4 H 10.0-20.0 Serum Glucose 112 H 74-106 mg/dL Calcium Level 9.2 8.7-10.4 mg/dL Total Bilirubin 0.4 0.2-1.0 mg/dL Aspartate Amino Transferase (AST) 17 13-40 U/L Alanine Aminotransferase (ALT) 17 7-40 U/L Alkaline Phosphatase 221 H 46-116 U/L Total Protein 7.4 5.7-8.2 g/dL Albumin 4.1 3.2-4.8 g/dL Treponema pallidum Antibody Non-reactive Negative Hepatitis C Antibody Negative Negative Urine Color Light-yellow Yellow Urine Clarity Turbid H Clear Urine pH 6.5 5.0-9.0 Urine Specific [place] 1.015 1.001-1.035 Urine Protein Negative Negative Urine Ketones Negative Negative Urine Blood Negative Negative /uL Urine Nitrite Negative Negative Urine Bilirubin Negative Negative Urine Urobilinogen Normal Negative mg/dL Urine Leukocyte Esterase 1+ Negative /uL Urine RBC 2 0 - 4 /hpf Urine Microscopic WBC 7 H 0-5 /HPF Urine Squamous Epithelial Cells Few <5 /hpf Urine Amorphous Crystals Few None Seen /hpf Urine Bacteria Few H None Seen /hpf Urine Glucose Normal Normal mg/dL Urine Opiates Screen Neg NEGATIVE Urine Fentanyl Screen Neg NEGATIVE Urine Barbiturates Screen Neg NEGATIVE Urine Phencyclidine Screen Neg NEGATIVE Urine Amphetamines Screen Neg NEGATIVE Urine Benzodiazepines Screen Neg NEGATIVE Urine Cocaine Screen Neg NEGATIVE Urine Cannabinoids Screen Neg NEGATIVE Assessment Assessment 34yo IUP@39.3wks Induction of Labor GDM, A1 Demarcus's Category I EFM Ruptured Amniotic Membranes GBS negative Plan Plan Keep IV pitocin at 30mu and change the pitocin bag per Dr. Gutierrez Blood glucose checks q2hrs Continuous monitoring per order Pain mgmt: epidural in place Frequent position changes in bed with peanut ball encouraged Limit SVE unless necessary Intrauterine resuscitation PRN Anticipate CNM is co-managing care with Dr. Gutierrez. Plan is for CNM to recheck cervix at 1 750. Plan discussed with: Patient, Spouse Visit Coding OBGYN Date of Service: October 04, 2024 Billing Provider: ASHLEY MCCLELLAND CNM JEWEL SUPERVISOR Common Visit Codes: [id number] INP/OBS CARE(HIGH) SCOTT MORRISON STDT MDWF October 04, 2024 16:17
[2024-10-04] MEDS: ACETAMINOPHEN 500 MG TAB or CAP PO ONE (17:02)
--- NOTE | 2024-10-04 18:12 | DVHPN2 ---
CNM Labor Progress Note Date and Time Seen Date Seen: October 04, 2024 Time Seen: 17:50 Subjective Subjective Comment Pt denies pain or pressure. Pt feels like she has a fever because she is shivering and her abdomen is warm. Pt just now reports being allergic to cephalosporin antibiotics. Objective Vital Signs VSS except maternal temp of 100F Tylenol PO received Monitoring Method Monitoring Method: Internal Heart Rate Heart Rate Baseline: 150 Heart Rate Variability: Moderate Presence of FHR Accelerations: Yes Presence of FHR Decelerations: Yes Heart Rate Type of Decel: Variable Decelerations (x2), Late Decelerations (x1) Comment on Trends or Patterns: maternal position changed to high fowlers after SVE Are all 5 Components of the FH: Yes Contractions Contractions Frequency: Other (q2-4min) Duration of Contraction: 80 Contractions Intensity: MVU (95) Contractions Resting Tone: Relaxed Membranes Membranes: Ruptured Amniotic Fluid Color: Clear Vaginal Exam Vag Exam Deferred: No Vaginal Exam Dilation: 6 Vaginal Exam Effacement: 100 Vaginal Exam Station: -1 (molding noted at 0 station) Vaginal Exam Presentation: VTX Vaginal Exam Show: Small Medications Medications - Pitocin: Yes (30mu) Medication - Epidural: Yes Medication - Other s/p 2 doses of cytotec PO Lab Results Lab Results Vital Signs Date Time Temp Pulse Resp B/P (MAP) Pulse Ox O2 Delivery O2 Flow Rate FiO2 10/04/24 17:02 100.0 Current Medications Medications (Trade) Dose Ordered Sig/Isaias Start Time Stop Time Status Last Admin Dose Admin Lactated Ringer's 1,000 ml @ 125 mls/hr Q8H 10/03/24 07:30 10/04/24 05:47 125 MLS/HR [address] (Tucks) 1 pad PRN PRN 10/03/24 07:30 10/03/24 23:28 1 PAD Sodium Lauryl Sulfate (Phisoderm) 240 ml PRN PRN 10/03/24 07:30 10/03/24 23:28 240 ML Benzocaine (Dermoplast) 1 applic PRN PRN 10/03/24 07:30 10/03/24 23:28 1 APPLIC Butorphanol Tartrate (Stadol Injection) 1 mg Q4HPRN PRN 10/03/24 07:30 Butorphanol Tartrate (Stadol Injection) 2 mg Q4HPRN PRN 10/03/24 07:30 Lidocaine HCl (Xylocaine) 20 ml ONCE PRN 10/03/24 07:30 Misoprostol (Cytotec) 50 mcg Q4HPRN PRN 10/03/24 08:30 10/03/24 13:30 50 MCG Calcium Carbonate (Tums) 1,000 mg ONCE ONCE 10/03/24 15:00 10/03/24 15:01 DC 10/03/24 15:04 1,000 MG Oxytocin 1,000 ml @ 6 ml/hr Q24H 10/03/24 18:15 10/04/24 09:35 6 ML/HR Terbutaline Sulfate (Brethine Inj) 0.25 mg ONCE PRN 10/03/24 18:15 Oxytocin 500 ml @ 999 mls/hr Q31M ONCE 10/03/24 18:15 10/03/24 18:45 DC Oxytocin 500 ml @ 125 mls/hr Q4H ONCE 10/03/24 18:45 10/03/24 22:44 DC Naloxone HCl (Narcan) 0.2 mg PRN ONCE 10/03/24 21:15 10/03/24 21:19 DC Ephedrine Sulfate (ePHEDrine SULFATE) 10 mg PRN ONCE 10/03/24 21:15 10/03/24 21:19 DC Lidocaine HCl (Xylocaine-Pf 2% Injection) 10 ml ONCE ONCE 10/03/24 21:15 10/03/24 21:19 DC Lactated Ringer's 1,000 ml @ 1,000 mls/hr Q1H ONCE 10/03/24 21:15 10/03/24 22:14 DC 10/03/24 22:05 1,000 MLS/HR Ondansetron HCl (Zofran) 4 mg Q4HPRN PRN 10/03/24 22:15 10/04/24 14:53 4 MG Famotidine (Pepcid Injection) 20 mg Q12HR 10/04/24 01:30 10/04/24 13:37 20 MG Levothyroxine Sodium (Synthroid Tablet) 25 mcg QAM@0600 10/04/24 06:00 10/04/24 05:40 25 MCG Acetaminophen (Tylenol Tablet) 650 mg Q4HP PRN 10/04/24 08:15 10/04/24 16:45 DC Dextrose/Lactated Ringer's 1,000 ml @ 125 mls/hr Q8H 10/04/24 08:15 10/04/24 13:05 125 MLS/HR Cefazolin Sodium/ Dextrose 50 ml @ 50 mls/hr ONCE ONCE 10/04/24 14:00 10/04/24 14:59 DC 10/04/24 14:21 50 MLS/HR Cefazolin Sodium 50 ml @ 100 mls/hr Q8HR 10/04/24 22:00 Acetaminophen (Tylenol Tablet Or Capsule) 1,000 mg ONCE ONCE 10/04/24 16:45 10/04/24 16:55 DC 10/04/24 17:02 1,000 MG Laboratory Tests Test 10/04/24 17:04 10/03/24 07:38 10/03/24 07:25 Range/Units POC Glucose 76 70-106 mg/dl White Blood Count 11.7 H 4.4-10.8 10^3/uL Red Blood Count 3.66 L 4.0-5.20 10^6/uL Hemoglobin 10.5 L 12.2-16.2 g/dL Hematocrit 30.9 L 36.0-46.0 % Mean Corpuscular Volume 84.5 80.0-100.0 fL Mean Corpuscular Hemoglobin 28.6 28.0-32.0 pg Mean Corpuscular Hemoglobin Concent 33.9 32.0-36.0 g/dL Red Cell Distribution Width 13.8 11.8-14.3 % Platelet Count 317 140-450 10^3/uL Mean Platelet Volume 7.9 6.9-10.8 fL Neutrophils (%) (Auto) 62.4 37.0-80.0 % Lymphocytes (%) (Auto) 28.3 10.0-50.0 % Monocytes (%) (Auto) 7.3 0.0-12.0 % Eosinophils (%) (Auto) 1.7 0.0-7.0 % Basophils (%) (Auto) 0.3 0.0-2.0 % Neutrophils # (Auto) 7.3 1.6-8.6 10 ^3/uL Lymphocytes # (Auto) 3.3 0.4-5.4 10 ^3/uL Monocytes # (Auto) 0.9 0-1.3 10 ^3/uL Eosinophils # (Auto) 0.2 0-0.8 10 ^3/uL Basophils # (Auto) 0 0-0.2 10 ^3/uL Nucleated Red Blood Cells 0.1 % Prothrombin Time 9.5 9.3-11.8 sec Prothrombin Time INR 0.89 L 0.9-1.15 Activated Partial Thromboplast Time 28.2 24.5-34.5 SEC Sodium Level 137 136-145 mmol/L Potassium Level 3.7 3.5-5.1 mmol/L Chloride Level 107 98-107 mmol/L Carbon Dioxide Level 18 L 20-31 mmol/L Anion Gap 12 5-15 Blood Urea Nitrogen 15 9-23 mg/dL Creatinine 0.70 0.550-1.02 mg/dL Glomerular Filtration Rate Calc 118 >90 mL/min BUN/Creatinine Ratio 21.4 H 10.0-20.0 Serum Glucose 112 H 74-106 mg/dL Calcium Level 9.2 8.7-10.4 mg/dL Total Bilirubin 0.4 0.2-1.0 mg/dL Aspartate Amino Transferase (AST) 17 13-40 U/L Alanine Aminotransferase (ALT) 17 7-40 U/L Alkaline Phosphatase 221 H 46-116 U/L Total Protein 7.4 5.7-8.2 g/dL Albumin 4.1 3.2-4.8 g/dL Treponema pallidum Antibody Non-reactive Negative Hepatitis C Antibody Negative Negative Urine Color Light-yellow Yellow Urine Clarity Turbid H Clear Urine pH 6.5 5.0-9.0 Urine Specific [place] 1.015 1.001-1.035 Urine Protein Negative Negative Urine Ketones Negative Negative Urine Blood Negative Negative /uL Urine Nitrite Negative Negative Urine Bilirubin Negative Negative Urine Urobilinogen Normal Negative mg/dL Urine Leukocyte Esterase 1+ Negative /uL Urine RBC 2 0 - 4 /hpf Urine Microscopic WBC 7 H 0-5 /HPF Urine Squamous Epithelial Cells Few <5 /hpf Urine Amorphous Crystals Few None Seen /hpf Urine Bacteria Few H None Seen /hpf Urine Glucose Normal Normal mg/dL Urine Opiates Screen Neg NEGATIVE Urine Fentanyl Screen Neg NEGATIVE Urine Barbiturates Screen Neg NEGATIVE Urine Phencyclidine Screen Neg NEGATIVE Urine Amphetamines Screen Neg NEGATIVE Urine Benzodiazepines Screen Neg NEGATIVE Urine Cocaine Screen Neg NEGATIVE Urine Cannabinoids Screen Neg NEGATIVE Assessment Assessment 34yo IUP@39.3wks Induction of Labor GDM, A1 Demarcus's Category I EFM Ruptured Amniotic Membranes Presumptive chorioamnionitis GBS negative Plan Plan Start cooling measures Ancef discontinued Start IV amp/gent Keep IV pitocin at 30mu Blood glucose checks q2hrs Continuous monitoring per order Pain mgmt: epidural in place Frequent position changes in bed with peanut ball encouraged Intrauterine resuscitation PRN Discussed increased risk of PPH with long labor and presumptive chorioamnionitis with pt and FOB. OB providers will actively manage after delivery to minimize blood loss. Pt and FOB verbalized understanding and are grateful to our care. Pt wants to continue for vaginal delivery. Anticipate CNLynne is co-managing care with Dr. Gutierrez. Dr. Gutierrez consulted, agrees with POC. Plan to recheck cervix at 1999. Plan discussed with: Patient, Spouse Visit Coding OBGYN Date of Service: October 04, 2024 Billing Provider: ASHLEY MCCLELLAND CNM PROFESSIONAL TUTOR Common Visit Codes: [id number] INP/OBS CARE(HIGH) ASHLEY MCCLELLAND CNM October 04, 2024 18:12
[2024-10-04] MEDS ORDERED: GENTAMICIN PER PHARMACY 0 ML IV SCH (18:30)
[2024-10-04] MEDS ORDERED: DIPHENOXYLATE W/ATROPINE 2.5 MG TAB PO PRN (19:00)
[2024-10-04] MEDS: AMPICILLIN SOD 2GM INJ 2 GM in SODIUM CHL 0.9% 100 ML IV SCH (19:10)
[2024-10-04] MEDS: diphenhdrAMINE HCL 50 MG/1 ML VL IV PRN (19:48)
--- NOTE | 2024-10-04 20:27 | DVHPN2 ---
CNM Labor Progress Note Date and Time Seen Date Seen: October 04, 2024 Time Seen: 19:52 Subjective Subjective Comment Pt feels rectal pressure. Denies itching and SOB after IV benadryl. Objective Vital Signs VSS, afebrile IV benadryl given Monitoring Method Monitoring Method: Internal, External Heart Rate Heart Rate Baseline: 150 Heart Rate Variability: Moderate Presence of FHR Accelerations: Yes Presence of FHR Decelerations: Yes Heart Rate Type of Decel: Early Deceleraions Are all 5 Components of the FH: Yes Contractions Contractions Frequency: Other (q1.5-3.5 min) Duration of Contraction: 80 Contractions Intensity: MVU (65) Contractions Resting Tone: Relaxed Membranes Membranes: Ruptured Amniotic Fluid Color: Clear Vaginal Exam Vag Exam Deferred: No Vaginal Exam Dilation: 8 Vaginal Exam Effacement: 100 Vaginal Exam Station: 0 Vaginal Exam Presentation: VTX Vaginal Exam Show: Small Medications Medications - Pitocin: Yes (30mu) Medication - Epidural: Yes Medication - Other s/p 2 doses of PO cytotec Lab Results Lab Results Vital Signs Date Time Temp Pulse Resp B/P (MAP) Pulse Ox O2 Delivery O2 Flow Rate FiO2 10/04/24 17:02 100.0 Current Medications Medications (Trade) Dose Ordered Sig/Isaias Start Time Stop Time Status Last Admin Dose Admin Lactated Ringer's 1,000 ml @ 125 mls/hr Q8H 10/03/24 07:30 10/04/24 05:47 125 MLS/HR Witch Ariana (Tucks) 1 pad PRN PRN 10/03/24 07:30 10/03/24 23:28 1 PAD Sodium Lauryl Sulfate (Phisoderm) 240 ml PRN PRN 10/03/24 07:30 10/03/24 23:28 240 ML Benzocaine (Dermoplast) 1 applic PRN PRN 10/03/24 07:30 10/03/24 23:28 1 APPLIC Butorphanol Tartrate (Stadol Injection) 1 mg Q4HPRN PRN 10/03/24 07:30 10/04/24 18:17 DC Butorphanol Tartrate (Stadol Injection) 2 mg Q4HPRN PRN 10/03/24 07:30 10/04/24 18:17 DC Lidocaine HCl (Xylocaine) 20 ml ONCE PRN 10/03/24 07:30 Misoprostol (Cytotec) 50 mcg Q4HPRN PRN 10/03/24 08:30 10/03/24 13:30 50 MCG Calcium Carbonate (Tums) 1,000 mg ONCE ONCE 10/03/24 15:00 10/03/24 15:01 DC 10/03/24 15:04 1,000 MG Oxytocin 1,000 ml @ 6 ml/hr Q24H 10/03/24 18:15 10/04/24 09:35 6 ML/HR Terbutaline Sulfate (Brethine Inj) 0.25 mg ONCE PRN 10/03/24 18:15 Oxytocin 500 ml @ 999 mls/hr Q31M ONCE 10/03/24 18:15 10/03/24 18:45 DC Oxytocin 500 ml @ 125 mls/hr Q4H ONCE 10/03/24 18:45 10/03/24 22:44 DC Naloxone HCl (Narcan) 0.2 mg PRN ONCE 10/03/24 21:15 10/03/24 21:19 DC Ephedrine Sulfate (ePHEDrine SULFATE) 10 mg PRN ONCE 10/03/24 21:15 10/03/24 21:19 DC Lidocaine HCl (Xylocaine-Pf 2% Injection) 10 ml ONCE ONCE 10/03/24 21:15 10/03/24 21:19 DC Lactated Ringer's 1,000 ml @ 1,000 mls/hr Q1H ONCE 10/03/24 21:15 10/03/24 22:14 DC 10/03/24 22:05 1,000 MLS/HR Ondansetron HCl (Zofran) 4 mg Q4HPRN PRN 10/03/24 22:15 10/04/24 14:53 4 MG Famotidine (Pepcid Injection) 20 mg Q12HR 10/04/24 01:30 10/04/24 13:37 20 MG Levothyroxine Sodium (Synthroid Tablet) 25 mcg QAM@0600 10/04/24 06:00 10/04/24 05:40 25 MCG Acetaminophen (Tylenol Tablet) 650 mg Q4HP PRN 10/04/24 08:15 10/04/24 16:45 DC Dextrose/Lactated Ringer's 1,000 ml @ 125 mls/hr Q8H 5/14/25 08:15 10/04/24 13:05 125 MLS/HR Cefazolin Sodium/ Dextrose 50 ml @ 50 mls/hr ONCE ONCE 10/04/24 14:00 10/04/24 14:59 DC 10/04/24 14:21 50 MLS/HR Cefazolin Sodium 50 ml @ 100 mls/hr Q8HR 10/04/24 22:00 10/04/24 18:17 DC Acetaminophen (Tylenol Tablet Or Capsule) 1,000 mg ONCE ONCE 10/04/24 16:45 10/04/24 16:55 DC 10/04/24 17:02 1,000 MG Ampicillin Sodium 2 gm/Sodium Chloride 100 ml @ 100 mls/hr Q6HR 10/04/24 18:16 10/04/24 19:37 DC 10/04/24 19:10 100 MLS/HR Gentamicin Sulfate 0 ml @ 0 mls/hr PER PHARMACY 10/04/24 18:30 10/06/24 18:29 Carboprost Tromethamine (Hemabate) 250 mcg ONCE ONCE 10/04/24 18:15 10/04/24 18:27 DC Methylergonovine Maleate (Methergine) 0.2 mg Q8HP PRN 10/04/24 18:15 10/06/24 18:14 Diphenoxylate HCl/ Atropine (Lomotil Tablet) 5 mg Q12HR 10/04/24 22:00 10/04/24 18:57 DC Gentamicin Sulfate 325 mg/ Dextrose 108.125 ml @ 103.966 mls/hr Q24H 10/04/24 19:00 10/06/24 18:59 Diphenoxylate HCl/ Atropine (Lomotil Tablet) 5 mg PRN PRN 10/04/24 19:00 Diphenhydramine HCl (Benadryl Injection) 25 mg Q4HP PRN 10/04/24 19:30 10/04/24 19:48 25 MG Clindamycin Phosphate 50 ml @ 50 mls/hr Q8H 10/04/24 20:00 10/06/24 19:59 Laboratory Tests Test 10/04/24 17:04 10/03/24 07:38 10/03/24 07:25 Range/Units POC Glucose 76 70-106 mg/dl White Blood Count 11.7 H 4.4-10.8 10^3/uL Red Blood Count 3.66 L 4.0-5.20 10^6/uL Hemoglobin 10.5 L 12.2-16.2 g/dL Hematocrit 30.9 L 36.0-46.0 % Mean Corpuscular Volume 84.5 80.0-100.0 fL Mean Corpuscular Hemoglobin 28.6 28.0-32.0 pg Mean Corpuscular Hemoglobin Concent 33.9 32.0-36.0 g/dL Red Cell Distribution Width 13.8 11.8-14.3 % Platelet Count 317 140-450 10^3/uL Mean Platelet Volume 7.9 6.9-10.8 fL Neutrophils (%) (Auto) 62.4 37.0-80.0 % Lymphocytes (%) (Auto) 28.3 10.0-50.0 % Monocytes (%) (Auto) 7.3 0.0-12.0 % Eosinophils (%) (Auto) 1.7 0.0-7.0 % Basophils (%) (Auto) 0.3 0.0-2.0 % Neutrophils # (Auto) 7.3 1.6-8.6 10 ^3/uL Lymphocytes # (Auto) 3.3 0.4-5.4 10 ^3/uL Monocytes # (Auto) 0.9 0-1.3 10 ^3/uL Eosinophils # (Auto) 0.2 0-0.8 10 ^3/uL Basophils # (Auto) 0 0-0.2 10 ^3/uL Nucleated Red Blood Cells 0.1 % Prothrombin Time 9.5 9.3-11.8 sec Prothrombin Time INR 0.89 L 0.9-1.15 Activated Partial Thromboplast Time 28.2 24.5-34.5 SEC Sodium Level 137 136-145 mmol/L Potassium Level 3.7 3.5-5.1 mmol/L Chloride Level 107 98-107 mmol/L Carbon Dioxide Level 18 L 20-31 mmol/L Anion Gap 12 5-15 Blood Urea Nitrogen 15 9-23 mg/dL Creatinine 0.70 0.550-1.02 mg/dL Glomerular Filtration Rate Calc 118 >90 mL/min BUN/Creatinine Ratio 21.4 H 10.0-20.0 Serum Glucose 112 H 74-106 mg/dL Calcium Level 9.2 8.7-10.4 mg/dL Total Bilirubin 0.4 0.2-1.0 mg/dL Aspartate Amino Transferase (AST) 17 13-40 U/L Alanine Aminotransferase (ALT) 17 7-40 U/L Alkaline Phosphatase 221 H 46-116 U/L Total Protein 7.4 5.7-8.2 g/dL Albumin 4.1 3.2-4.8 g/dL Treponema pallidum Antibody Non-reactive Negative Hepatitis C Antibody Negative Negative Urine Color Light-yellow Yellow Urine Clarity Turbid H Clear Urine pH 6.5 5.0-9.0 Urine Specific [place] 1.015 1.001-1.035 Urine Protein Negative Negative Urine Ketones Negative Negative Urine Blood Negative Negative /uL Urine Nitrite Negative Negative Urine Bilirubin Negative Negative Urine Urobilinogen Normal Negative mg/dL Urine Leukocyte Esterase 1+ Negative /uL Urine RBC 2 0 - 4 /hpf Urine Microscopic WBC 7 H 0-5 /HPF Urine Squamous Epithelial Cells Few <5 /hpf Urine Amorphous Crystals Few None Seen /hpf Urine Bacteria Few H None Seen /hpf Urine Glucose Normal Normal mg/dL Urine Opiates Screen Neg NEGATIVE Urine Fentanyl Screen Neg NEGATIVE Urine Barbiturates Screen Neg NEGATIVE Urine Phencyclidine Screen Neg NEGATIVE Urine Amphetamines Screen Neg NEGATIVE Urine Benzodiazepines Screen Neg NEGATIVE Urine Cocaine Screen Neg NEGATIVE Urine Cannabinoids Screen Neg NEGATIVE Assessment Assessment 34yo IUP@39.3wks Induction of Labor GDM, A1 Demarcus's Category I EFM Ruptured Amniotic Membranes Presumptive chorioamnionitis GBS negative Plan Plan ampicillin stopped due to pt report of SOB and itching. Clindamycin ordered instead Continue with IV gent Continue Pitocin IV titration per order Blood glucose checks q2hrs Continuous monitoring per order Pain mgmt: epidural in place Frequent position changes in bed with peanut ball encouraged Intrauterine resuscitation PRN Anticipate MAGGI is co-managing care with Dr. Gutierrez. Dr. Gutierrez consulted, agrees with POC. Plan to recheck cervix at 2200. Plan discussed with: Patient, Spouse Visit Coding OBGYN Date of Service: October 04, 2024 Billing Provider: ASHLEY MCCLELLAND CNM FIELD TRAINING AGENT Common Visit Codes: [id number] INP/OBS CARE(HIGH) ASHLEY MCCLELLAND CNM October 04, 2024 20:27
[2024-10-04] MEDS: D5W 5% IV SCH (20:32)
[2024-10-04] MEDS: GENTAMICIN SULFATE IV SCH (20:32)
[2024-10-04] MEDS ORDERED: ceFAZolin 1GM/50ML 50 ML IV SCH (22:00)
[2024-10-04] MEDS ORDERED: DIPHENOXYLATE W/ATROPINE 2.5 MG TAB PO SCH (22:00)
[2024-10-04] MEDS: CLINDAMYCIN 900MG IV 50 ML IV SCH (22:13)
--- NOTE | 2024-10-04 22:18 | DVHPN2 ---
CNM Labor Progress Note Date and Time Seen Date Seen: October 04, 2024 Time Seen: 22:00 Subjective Patient reports: No new complaints Subjective Comment Pt feels same rectal pressure. Objective Vital Signs VSS, afebrile Monitoring Method Monitoring Method: Internal, External Heart Rate Heart Rate Baseline: 140 Heart Rate Variability: Moderate Presence of FHR Accelerations: Yes Presence of FHR Decelerations: No Changes in Trends of Patterns: No Are all 5 Components of the FH: Yes Contractions Contractions Frequency: Other (q3-5 min, IUPC recalibrated) Duration of Contraction: 70 Contractions Intensity: Moderate Contractions Resting Tone: Relaxed Membranes Membranes: Ruptured Amniotic Fluid Color: Clear Vaginal Exam Vag Exam Deferred: No Vaginal Exam Dilation: 9 Vaginal Exam Effacement: 100 Vaginal Exam Station: +1 Vaginal Exam Presentation: VTX Vaginal Exam Show: Small Medications Medications - Pitocin: Yes (19mu) Medication - Epidural: Yes Medication - Other s/p 2 doses of PO cytotec Lab Results Lab Results Vital Signs Date Time Temp Pulse Resp B/P (MAP) Pulse Ox O2 Delivery O2 Flow Rate FiO2 10/04/24 17:02 100.0 Current Medications Medications (Trade) Dose Ordered Sig/Isaias Start Time Stop Time Status Last Admin Dose Admin Lactated Ringer's 1,000 ml @ 125 mls/hr Q8H 10/03/24 07:30 10/04/24 05:47 125 MLS/HR Witch Ariana (Tucks) 1 pad PRN PRN 10/03/24 07:30 10/03/24 23:28 1 PAD Sodium Lauryl Sulfate (Phisoderm) 240 ml PRN PRN 10/03/24 07:30 10/03/24 23:28 240 ML Benzocaine (Dermoplast) 1 applic PRN PRN 10/03/24 07:30 10/03/24 23:28 1 APPLIC Butorphanol Tartrate (Stadol Injection) 1 mg Q4HPRN PRN 10/03/24 07:30 10/04/24 18:17 DC Butorphanol Tartrate (Stadol Injection) 2 mg Q4HPRN PRN 10/03/24 07:30 10/04/24 18:17 DC Lidocaine HCl (Xylocaine) 20 ml ONCE PRN 10/03/24 07:30 Misoprostol (Cytotec) 50 mcg Q4HPRN PRN 10/03/24 08:30 10/03/24 13:30 50 MCG Calcium Carbonate (Tums) 1,000 mg ONCE ONCE 10/03/24 15:00 10/03/24 15:01 DC 10/03/24 15:04 1,000 MG Oxytocin 1,000 ml @ 6 ml/hr Q24H 10/03/24 18:15 10/04/24 09:35 6 ML/HR Terbutaline Sulfate (Brethine Inj) 0.25 mg ONCE PRN 10/03/24 18:15 Oxytocin 500 ml @ 999 mls/hr Q31M ONCE 10/03/24 18:15 10/03/24 18:45 DC Oxytocin 500 ml @ 125 mls/hr Q4H ONCE 10/03/24 18:45 10/03/24 22:44 DC Naloxone HCl (Narcan) 0.2 mg PRN ONCE 10/03/24 21:15 10/03/24 21:19 DC Ephedrine Sulfate (ePHEDrine SULFATE) 10 mg PRN ONCE 10/03/24 21:15 10/03/24 21:19 DC Lidocaine HCl (Xylocaine-Pf 2% Injection) 10 ml ONCE ONCE 10/03/24 21:15 10/03/24 21:19 DC Lactated Ringer's 1,000 ml @ 1,000 mls/hr Q1H ONCE 10/03/24 21:15 10/03/24 22:14 DC 10/03/24 22:05 1,000 MLS/HR Ondansetron HCl (Zofran) 4 mg Q4HPRN PRN 10/03/24 22:15 10/04/24 14:53 4 MG Famotidine (Pepcid Injection) 20 mg Q12HR 10/04/24 01:30 10/04/24 13:37 20 MG Levothyroxine Sodium (Synthroid Tablet) 25 mcg QAM@0600 10/04/24 06:00 10/04/24 05:40 25 MCG Acetaminophen (Tylenol Tablet) 650 mg Q4HP PRN 10/04/24 08:15 10/04/24 16:45 DC Dextrose/Lactated Ringer's 1,000 ml @ 125 mls/hr Q8H 10/04/24 08:15 10/04/24 13:05 125 MLS/HR Cefazolin Sodium/ Dextrose 50 ml @ 50 mls/hr ONCE ONCE 10/04/24 14:00 10/04/24 14:59 DC 10/04/24 14:21 50 MLS/HR Cefazolin Sodium 50 ml @ 100 mls/hr Q8HR 10/04/24 22:00 10/04/24 18:17 DC Acetaminophen (Tylenol Tablet Or Capsule) 1,000 mg ONCE ONCE 10/04/24 16:45 10/04/24 16:55 DC 10/04/24 17:02 1,000 MG Ampicillin Sodium 2 gm/Sodium Chloride 100 ml @ 100 mls/hr Q6HR 10/04/24 18:16 10/04/24 19:37 DC 10/04/24 19:10 100 MLS/HR Gentamicin Sulfate 0 ml @ 0 mls/hr PER PHARMACY 10/04/24 18:30 10/06/24 18:29 Carboprost Tromethamine (Hemabate) 250 mcg ONCE ONCE 10/04/24 18:15 10/04/24 18:27 DC Methylergonovine Maleate (Methergine) 0.2 mg Q8HP PRN 10/04/24 18:15 10/06/24 18:14 Diphenoxylate HCl/ Atropine (Lomotil Tablet) 5 mg Q12HR 10/04/24 22:00 10/04/24 18:57 DC Gentamicin Sulfate 325 mg/ Dextrose 108.125 ml @ 103.966 mls/hr Q24H 10/04/24 19:00 10/06/24 18:59 10/04/24 20:32 103.966 MLS/HR Diphenoxylate HCl/ Atropine (Lomotil Tablet) 5 mg PRN PRN 10/04/24 19:00 Diphenhydramine HCl (Benadryl Injection) 25 mg Q4HP PRN 10/04/24 19:30 10/04/24 19:48 25 MG Clindamycin Phosphate 50 ml @ 50 mls/hr Q8H 10/04/24 20:00 10/06/24 19:59 Laboratory Tests Test 10/04/24 21:05 10/03/24 07:38 10/03/24 07:25 Range/Units POC Glucose 65 L 70-106 mg/dl White Blood Count 11.7 H 4.4-10.8 10^3/uL Red Blood Count 3.66 L 4.0-5.20 10^6/uL Hemoglobin 10.5 L 12.2-16.2 g/dL Hematocrit 30.9 L 36.0-46.0 % Mean Corpuscular Volume 84.5 80.0-100.0 fL Mean Corpuscular Hemoglobin 28.6 28.0-32.0 pg Mean Corpuscular Hemoglobin Concent 33.9 32.0-36.0 g/dL Red Cell Distribution Width 13.8 11.8-14.3 % Platelet Count 317 140-450 10^3/uL Mean Platelet Volume 7.9 6.9-10.8 fL Neutrophils (%) (Auto) 62.4 37.0-80.0 % Lymphocytes (%) (Auto) 28.3 10.0-50.0 % Monocytes (%) (Auto) 7.3 0.0-12.0 % Eosinophils (%) (Auto) 1.7 0.0-7.0 % Basophils (%) (Auto) 0.3 0.0-2.0 % Neutrophils # (Auto) 7.3 1.6-8.6 10 ^3/uL Lymphocytes # (Auto) 3.3 0.4-5.4 10 ^3/uL Monocytes # (Auto) 0.9 0-1.3 10 ^3/uL Eosinophils # (Auto) 0.2 0-0.8 10 ^3/uL Basophils # (Auto) 0 0-0.2 10 ^3/uL Nucleated Red Blood Cells 0.1 % Prothrombin Time 9.5 9.3-11.8 sec Prothrombin Time INR 0.89 L 0.9-1.15 Activated Partial Thromboplast Time 28.2 24.5-34.5 SEC Sodium Level 137 136-145 mmol/L Potassium Level 3.7 3.5-5.1 mmol/L Chloride Level 107 98-107 mmol/L Carbon Dioxide Level 18 L 20-31 mmol/L Anion Gap 12 5-15 Blood Urea Nitrogen 15 9-23 mg/dL Creatinine 0.70 0.550-1.02 mg/dL Glomerular Filtration Rate Calc 118 >90 mL/min BUN/Creatinine Ratio 21.4 H 10.0-20.0 Serum Glucose 112 H 74-106 mg/dL Calcium Level 9.2 8.7-10.4 mg/dL Total Bilirubin 0.4 0.2-1.0 mg/dL Aspartate Amino Transferase (AST) 17 13-40 U/L Alanine Aminotransferase (ALT) 17 7-40 U/L Alkaline Phosphatase 221 H 46-116 U/L Total Protein 7.4 5.7-8.2 g/dL Albumin 4.1 3.2-4.8 g/dL Treponema pallidum Antibody Non-reactive Negative Hepatitis C Antibody Negative Negative Urine Color Light-yellow Yellow Urine Clarity Turbid H Clear Urine pH 6.5 5.0-9.0 Urine Specific [place] 1.015 1.001-1.035 Urine Protein Negative Negative Urine Ketones Negative Negative Urine Blood Negative Negative /uL Urine Nitrite Negative Negative Urine Bilirubin Negative Negative Urine Urobilinogen Normal Negative mg/dL Urine Leukocyte Esterase 1+ Negative /uL Urine RBC 2 0 - 4 /hpf Urine Microscopic WBC 7 H 0-5 /HPF Urine Squamous Epithelial Cells Few <5 /hpf Urine Amorphous Crystals Few None Seen /hpf Urine Bacteria Few H None Seen /hpf Urine Glucose Normal Normal mg/dL Urine Opiates Screen Neg NEGATIVE Urine Fentanyl Screen Neg NEGATIVE Urine Barbiturates Screen Neg NEGATIVE Urine Phencyclidine Screen Neg NEGATIVE Urine Amphetamines Screen Neg NEGATIVE Urine Benzodiazepines Screen Neg NEGATIVE Urine Cocaine Screen Neg NEGATIVE Urine Cannabinoids Screen Neg NEGATIVE Assessment Assessment 34yo IUP@39.3wks Induction of Labor GDM, A1 Demarcus's Category I EFM Ruptured Amniotic Membranes Presumptive chorioamnionitis GBS negative Plan Plan Continue Pitocin IV titration per order Continue with IV gentamicin/clindamycin Blood glucose checks q2hrs Continuous monitoring per order Pain mgmt: epidural in place Frequent position changes in bed with peanut ball encouraged Intrauterine resuscitation PRN Anticipate MAGGI is co-managing care with Dr. Gutierrez. Dr. Gutierrez consulted, agrees with POC. Plan to recheck cervix in 1-2 hours. Plan discussed with: Patient, Spouse Visit Coding OBGYN Date of Service: October 04, 2024 Billing Provider: ASHLEY MCCLELLAND CNM [employer] Common Visit Codes: [id number] INP/OBS CARE(HIGH) ASHLEY MCCLELLAND CNM October 04, 2024 22:18
[2024-10-05] VITALS (8 sets, daily range): BP systolic 107–126; BP diastolic 53–70; PULSE 54–74; RESP 15–19; TEMP 97.6–98.3; O2SAT 92–99
[2024-10-05] MEDS: LIDOCAINE HCL 2 %PF INJ 10ML AMP IJ ONE
[2024-10-05] MEDS: NALOXONE HCL 0.4 MG/ML VIAL IV ONE
[2024-10-05] MEDS: ePHEDrine SULFATE 50 MG/ML AMP IV ONE (00:15)
[2024-10-05] MEDS: CARBOPROST TROMETHAMINE 250 MCG/1ML VIAL IM ONE ×2 (00:30)
[2024-10-05] MEDS: LACT. RINGERS/OXYTOCIN 20UNITS 500 ML IV ONE ×2 (01:01→01:02)
[2024-10-05] MEDS: CALCIUM CARB 500 MG CHEW TAB PO PRN (01:15)
--- NOTE | 2024-10-05 01:32 | LDN2 ---
Labor and Delivery Note Date 10/05/24 Age 34 1 Para 1 AB n/a EDC 10/08/2024 EGA 39.4 weeks Diagnosis IOL for GDM, A1 and sharita's then Vaginal Delivery: VTX Vacuum Assisted: No Placenta: Spontaneous Sex: Female Weight Pending Apgars 7/9 Nuchal Cord Transected: No Amniotic Fluid: Clear Anesthesia Epidural Episiotomy: No Extension: No Repaired with 3-0 Vicryl suture EBL QBL: 500 mL Labs Laboratory Tests 02/11/24 09:25: Hepatitis B Surface Antigen Negative, HIV (1&2) Antibody Negative Blood Bank 10/03/24 07:38: Blood Type B POSITIVE Complications n/a Conditions Stable Gig Tender Dr. Diaz Comments/Significant Med Julito At 0015 this 34yo now delivered a viable Female by w/ APGARS 7/9. VERONICA with loose Nuchal x1 with cord reduced after . TXA 1G IVPB given prior to the delivery of infant. placed skin to skin on pts chest. Cord clamped and cut after pulsation ceased. Intact 3-vessel cord placenta delivered spontaneously, Patrick. Pitocin IV bolus started. Uterus boggy w/o massage. Methergine 0.2 mg IM given by RN. Cytotec 800 mcg rectally given. Manual sweep done, clots cleared from uterus. Firm fundus and lower uterine segment. Placenta sent to pathology. Patient had epidural anesthesia. Cervix/vagina inspected (intact) and left vaginal wall, bilateral labial, and urethral-clitoral lacerations present which was repaired with 3-0 vicryl suture. Fundus at U, firm, midline, and light lochia. QBL 500ml. VSS. Count correct x2. Patient to care and baby to couplet care, both stable. Clindamycin/Gentamicin IV to continue for [address] Gutierrez. Visit Coding OBGYN Date of Service: October 05, 2024 Billing Provider: ASHLEY MCCLELLAND CNM CARDIAC EXERCISE PHYSIOLOGIST Common Visit Codes: PROCEDURE ONLY CARDIAC EXERCISE PHYSIOLOGIST Procedure Codes: [id number] DEL INCLUDING SCOTT MORRISON STDT MDWF October 05, 2024 01:32
[2024-10-05] MEDS ORDERED: IBUP-1456 PO (02:35)
[2024-10-05] MEDS: IBUPROFEN 600 MG TAB PO PRN (02:47)
[2024-10-05] MEDS: METHYLERGONOVINE MALEATE 0.2 MG/ML AMP IM PRN (03:44)
[2024-10-05] MEDS: ACETAMINOPHEN 325 MG TAB PO PRN (05:58)
[2024-10-05] MEDS: DOCUSATE SOD 100 MG CAP PO SCH (07:27)
[2024-10-05] MEDS: PRENATAL VITAMIN TAB PO SCH (10:09)
[2024-10-05 10:21] LABS: Basophils # (auto) 0 10 ^3/uL (0-0.2); Basophils % (auto) 0.2 % (0.0-2.0); Eosinophils # (auto) 0.1 10 ^3/uL (0-0.8); Eosinophils % (auto) 0.3 % (0.0-7.0); Hematocrit 25.3 % (36.0-46.0); Hemoglobin 8.5 g/dL (12.2-16.2); Lymphocytes # (auto) 3.6 10 ^3/uL (0.4-5.4); Lymphocytes % (auto) 14.5 % (10.0-50.0); Mean Corpuscular Hemoglobin 28.4 pg (28.0-32.0); Mean Corpuscular Hgb Conc. 33.6 g/dL (32.0-36.0); Mean Corpuscular Volume 84.6 fL (80.0-100.0); Monocytes # (auto) 1.4 10 ^3/uL (0-1.3); Monocytes % (auto) 5.5 % (0.0-12.0); Neutrophils # (auto) 19.8 10 ^3/uL (1.6-8.6); Neutrophils % (auto) 79.5 % (37.0-80.0); Nucleated Red Blood Cells % 0.1 %; Platelet Count (auto) 207 10^3/uL (140-450); Red Blood Cells 2.98 10^6/uL (4.0-5.20); Red Cell Distribution Width 13.8 % (11.8-14.3); White Blood Cell 24.9 10^3/uL (4.4-10.8)
[2024-10-05] MEDS ORDERED: LEVO-848 PO (11:39)
[2024-10-05] MEDS: CLINDAMYCIN 900MG IV 50 ML IV SCH (14:23)
[2024-10-05 15:44] LABS: Basophils # (auto) 0.1 10 ^3/uL (0-0.2); Basophils % (auto) 0.2 % (0.0-2.0); Eosinophils # (auto) 0.1 10 ^3/uL (0-0.8); Eosinophils % (auto) 0.3 % (0.0-7.0); Hematocrit 24.7 % (36.0-46.0); Hemoglobin 8.2 g/dL (12.2-16.2); Lymphocytes % (auto) 12.3 % (10.0-50.0); Mean Corpuscular Hemoglobin 28.1 pg (28.0-32.0); Mean Corpuscular Hgb Conc. 33.2 g/dL (32.0-36.0); Mean Corpuscular Volume 84.6 fL (80.0-100.0); Monocytes # (auto) 1.3 10 ^3/uL (0-1.3); Monocytes % (auto) 5.4 % (0.0-12.0); Neutrophils # (auto) 20.2 10 ^3/uL (1.6-8.6); Neutrophils % (auto) 81.8 % (37.0-80.0); Nucleated Red Blood Cells % 0.2 %; Platelet Count (auto) 219 10^3/uL (140-450); Red Blood Cells 2.92 10^6/uL (4.0-5.20); Red Cell Distribution Width 13.8 % (11.8-14.3); White Blood Cell 24.7 10^3/uL (4.4-10.8)
--- NOTE | 2024-10-05 15:48 | DVHINCON2 ---
Assessment Medicine consult note 34 F A0 with hx of GDM, sharita, sjogren, and H pylory not eradicated. patient presented with 2 days of chest and epigastric tightness, worse when laying flat, improved with sitting up. Had bitter taste in mouth uppon waking up. Hx of hpylori but no treatment as patient was at that time. No radiation, diaphoresis, palpitation, syncope. Also found trace edema on b/l legs, equal, unchanged since delivery. Denies smoking, alcohol and drug use. Compliant with meds, taking levohyroxin at home. Was given cytotec for induction of labor. On my assessment symptoms persists but mild. Denies N/V, diarrhea, constipation, headache, dizziness, weakness. Appropriate abdominal tenderness. ROS per HPI Physical exam AOx4 Cooperative PERRLA MMM Clear breath sounds, no wheezing S1 S2 rrr no murmur Abdomen gravid trace LE edema equal b/l Labs reviewed, leukocytosis, anemia appropriate with and delivery, TSH 7.5, T4 0.83 EKG reviewed bedside, NSR, borderline low voltage Bedside echo done, preserved function, no RMWA, grossly normal valves and volumes, IVC collapsible, no pericardial eff Assessment and plan Chest tightness r/o DVT/PE GERD + H pylori Hypothyroidism 2/2 sharita sjogrens no flares GDM EKG normal, echo normal, will send trops, cxr, dvt studies. d dimer might not be appropriate as it will be elevated in pepcid 40mg QD, maalox q8 c/w levothyroxine, recheck in 3 months outpatient can use syntethic tears if needed FS ACHS, will add insulin regimen as appropriate rest of care per primary team Diet per primary dvt ppx ambulatory Plan discussed with: Patient, Spouse, Other Date of Service: October 05, 2024 Billing Provider: HAWA HERNANDEZ MD Common Visit Codes: PROCEDURE ONLY (bedside echo 27785), CONSULT ONLY Consultation Codes: [id number] CONSULT <60MIN HAWA HERNANDEZ MD October 05, 2024 15:48
[2024-10-05 15:53] LABS: Potassium 3.9 mmol/L (3.5-5.1); Sodium 137 mmol/L (136-145)
[2024-10-05 15:54] LABS: Anion Gap 9 (5-15); Carbon Dioxide 21 mmol/L (20-31)
[2024-10-05 15:59] LABS: BUN/Creatinine Ratio 19.8 (10.0-20.0); Blood Urea Nitrogen 16 mg/dL (9-23); Glucose 83 mg/dL (74-106)
[2024-10-05 16:01] LABS: Calcium 8.6 mg/dL (8.7-10.4); Chloride 107 mmol/L (98-107)
--- NOTE | 2024-10-05 16:29 | DVH ---
CHEST RADIOGRAPH Indication: chest pain Technique: Single frontal view of the chest was obtained Comparison: None FINDINGS: Lines and Tubes: None Lungs: No focal consolidation. Pleura: No effusion. No pneumothorax. Cardiomediastinal contours: Unremarkable Bones: No acute osseous abnormality. IMPRESSION: No acute cardiopulmonary disease.
--- NOTE | 2024-10-05 16:50 | DVHINCON2 ---
Date Seen: October 05, 2024 Referring Physician MD Henrique Reason for Consultation Troponin elevation History of Present Illness This is a pleasant 34-year-old female with status of a full-term female on 10/05/2024. Cardiology consulted given complains of chest pain for approximately three days. Describes the chest pain as substernal, non- radiating, tightness like, intermittent, non provoked, and lasting for approximately 30 minutes at a time. Endorses it feels as previous acid reflux exacerbations. She underwent a twelve lead electrocardiogram revealing a normal sinus rhythm with no apparent ST-T wave changes. Initial troponin level is 125 ng/L. Family history includes father status post 5-vessel coronary artery bypass graft at 55-60 y.o. Significant medical history includes Demarcus's thyroiditis, Sjgren's syndrome, GERD, gestational diabetes mellitus, and A0. Past Medical History Past medical history reviewed. No other significant than mentioned above. Past Surgical History Past medical history reviewed. No other significant than mentioned above. Family History Family history reviewed. See HPI. Social History Denies the use of illicit drugs, alcohol, or tobacco use. Allergies: Coded Allergies: Cephalosporins (Verified Allergy, Intermediate, 10/04/24) Home Meds Active Scripts Levothyroxine Sodium (SYNTHROID TABLET) 50 Mcg Tb, 1 TAB PO DAILY, #90 TAB 0 Refills generic substitute okay Prov:ASHLEY MCCLELLAND CNM 10/05/24 Ibuprofen (Ibuprofen) 800 Mg Tab, 1 TAB PO TID, #90 TAB Prov:ASHLEY MCCLELLAND CNM 10/05/24 Cephalexin (KEFLEX CAPSULE) 250 Mg Cp, 250 MG PO QID for 7 Days, #28 BOTTLE Prov:KEIRY WREN MD 04/03/24 Reported Medications Doxylamine Succinate (Sleep) (Unisom) 25 Mg Tab, 25 MG PO, TAB 09/19/24 Vit W/ Ferrous Fumara ( One Daily) Daily Tab, 1 TAB PO DAILY, #90 TAB 3 Refills 08/15/24 Levothyroxine Sodium (Levothyroxine Sodium) 25 Mcg Tab, 1 TAB PO DAILY, #30 TAB 5 Refills 08/15/24 Home Meds Home medications reviewed. Current Medications Current Medications Medications (Trade) Dose Ordered Sig/Isaias Route PRN Reason Start Time Stop Time Status Last Admin Cefazolin Sodium 50 ml @ 100 mls/hr Q8HR IV 10/04/24 22:00 10/04/24 18:17 DC Ampicillin Sodium 2 gm/Sodium Chloride 100 ml @ 100 mls/hr Q6HR IV 10/04/24 18:16 10/04/24 19:37 DC 10/04/24 19:10 Gentamicin Sulfate 0 ml @ 0 mls/hr PER PHARMACY IV 10/04/24 18:30 10/06/24 18:29 Methylergonovine Maleate (Methergine) 0.2 mg Q8HP PRN IM POST HEMORRHAGE 10/04/24 18:15 10/06/24 18:14 10/05/24 03:44 Diphenoxylate HCl/ Atropine (Lomotil Tablet) 5 mg Q12HR PO 10/04/24 22:00 10/04/24 18:57 DC Gentamicin Sulfate 325 mg/ Dextrose 108.125 ml @ 103.966 mls/hr Q24H IV 10/04/24 19:00 10/06/24 18:59 10/04/24 20:32 Diphenoxylate HCl/ Atropine (Lomotil Tablet) 5 mg PRN PRN PO FOR DIARRHEA 10/04/24 19:00 10/05/24 06:48 DC Diphenhydramine HCl (Benadryl Injection) 25 mg Q4HP PRN IV FOR ITCHING 10/04/24 19:30 10/04/24 19:48 Clindamycin Phosphate 50 ml @ 50 mls/hr Q8H IV 10/04/24 20:00 10/05/24 10:10 DC 10/05/24 05:56 Calcium Carbonate (Tums) 500 mg QIDPRN PRN PO FOR STOMACH DISTRESS 10/04/24 23:45 10/05/24 01:15 Ibuprofen (Motrin Tablet) 600 mg Q6HP PRN PO MODERATE PAIN (4-6 PAIN SCALE) 10/05/24 02:45 10/05/24 15:17 Acetaminophen (Tylenol Tablet) 650 mg Q6HPRN PRN PO MILD PAIN (1-3 PAIN SCALE) 10/05/24 02:45 10/05/24 05:58 Prenat Multivit/ [place]/Iron/Folic Ac (Prenavite Tablet) 1 DAILY PO 10/05/24 10:00 10/05/24 10:09 Docusate Sodium (Colace Capsule) 200 mg DAILY PO 10/05/24 07:00 10/05/24 07:27 Clindamycin Phosphate 50 ml @ 50 mls/hr Q8H IV 10/05/24 14:00 10/07/24 13:59 10/05/24 14:23 Levothyroxine Sodium (Synthroid Tablet) 50 mcg QAM@0600 PO 10/06/24 06:00 Al Hydrox/Mg Hydrox/Simethicone (Maalox Plus) 30 ml Q8HR PO 10/05/24 22:00 Review of Systems Constitutional: No symptom reported Ears, Nose, & Throat: No symptom reported Eyes: No symptom reported Neurological: No symptoms reported Pulmonary/Respiratory: No symptom reported Cardiovascular: Chest pain Gastrointestinal: No symptom reported Genitourinary: No symptom reported Musculoskeletal: No symptom reported Skin: No symptom reported Psychiatric: No symptom reported Endocrine: No symptom reported Hemotologic/Lymphatic: No symptom reported Vital Signs Vital Signs Date Time Temp Pulse Resp B/P (MAP) Pulse Ox O2 Delivery O2 Flow Rate FiO2 10/05/24 14:45 97.6 56 15 113/53 (73) 95 97.6 10/05/24 07:00 Room Air Physical Exam General Appearance: Cooperative. Well developed. Well nourished. In no acute distress Head Exam: Normal inspection Neck Exam: Normal inspection. Non-tender. Normal alignment Pulmonary/Respiratory: Chest non-tender. Clear bilateral breath sounds Cardiovascular/Chest: Regular rate and rhythm. S1, S2. NSR. No murmurs. No JVD. Peripheral Pulses: 2+ Radial (R). 2+ Radial (L). 2+ Pedal (R). 2+ Pedal (L) Abdominal Exam: Normal bowel sounds. Soft. Nontender. No hepatospenomegaly. No masses Ankle Exam: Negative ankle edema Lower extremities: Negative lower extremity edema Neuro/Mental Status: A&O x4. Coherent Thoughts/Psych: Normal thought pattern. Appropriate mood and affect. Good judgement and insight Appearance: In no acute distress Skin Exam: Normal inspection. Normal color. Warm. Dry Labs/Diagnostic Data Labs Test 10/05/24 15:50 10/05/24 11:38 10/05/24 09:59 10/05/24 04:29 Range/Units White Blood Count 24.7 H 4.4-10.8 10^3/uL Red Blood Count 2.92 L 4.0-5.20 10^6/uL Hemoglobin 8.2 L 12.2-16.2 g/dL Hematocrit 24.7 L 36.0-46.0 % Mean Corpuscular Volume 84.6 80.0-100.0 fL Mean Corpuscular Hemoglobin 28.1 28.0-32.0 pg Mean Corpuscular Hemoglobin Concent 33.2 32.0-36.0 g/dL Red Cell Distribution Width 13.8 11.8-14.3 % Platelet Count 219 140-450 10^3/uL Mean Platelet Volume 8.1 6.9-10.8 fL Neutrophils (%) (Auto) 81.8 H 37.0-80.0 % Lymphocytes (%) (Auto) 12.3 10.0-50.0 % Monocytes (%) (Auto) 5.4 0.0-12.0 % Eosinophils (%) (Auto) 0.3 0.0-7.0 % Basophils (%) (Auto) 0.2 0.0-2.0 % Neutrophils # (Auto) 20.2 H 1.6-8.6 10 ^3/uL Lymphocytes # (Auto) 3.0 0.4-5.4 10 ^3/uL Monocytes # (Auto) 1.3 0-1.3 10 ^3/uL Eosinophils # (Auto) 0.1 0-0.8 10 ^3/uL Basophils # (Auto) 0.1 0-0.2 10 ^3/uL Nucleated Red Blood Cells 0.2 % Sodium Level 137 136-145 mmol/L Potassium Level 3.9 3.5-5.1 mmol/L Chloride Level 107 98-107 mmol/L Carbon Dioxide Level 21 20-31 mmol/L Anion Gap 9 5-15 Blood Urea Nitrogen 16 9-23 mg/dL Creatinine 0.81 0.550-1.02 mg/dL Glomerular Filtration Rate Calc 99 >90 mL/min BUN/Creatinine Ratio 19.8 10.0-20.0 Serum Glucose 83 74-106 mg/dL Calcium Level 8.6 L 8.7-10.4 mg/dL Troponin I High Sensitivity 125 *H </=34 ng/L HIV (1&2) Antibody Negative Negative Thyroid Stimulating Hormone (TSH) 7.56 H 0.55-4.78 uIU/mL Free Thyroxine (T4) Calculated 0.83 L 0.89-1.76 ng/dL POC Glucose 140 H 70-106 mg/dl Test 10/03/24 07:38 10/03/24 07:25 Range/Units Prothrombin Time 9.5 9.3-11.8 sec Prothrombin Time INR 0.89 L 0.9-1.15 Activated Partial Thromboplast Time 28.2 24.5-34.5 SEC Total Bilirubin 0.4 0.2-1.0 mg/dL Aspartate Amino Transferase (AST) 17 13-40 U/L Alanine Aminotransferase (ALT) 17 7-40 U/L Alkaline Phosphatase 221 H 46-116 U/L Total Protein 7.4 5.7-8.2 g/dL Albumin 4.1 3.2-4.8 g/dL Treponema pallidum Antibody Non-reactive Negative Hepatitis C Antibody Negative Negative Urine Color Light-yellow Yellow Urine Clarity Turbid H Clear Urine pH 6.5 5.0-9.0 Urine Specific [place] 1.015 1.001-1.035 Urine Protein Negative Negative Urine Ketones Negative Negative Urine Blood Negative Negative /uL Urine Nitrite Negative Negative Urine Bilirubin Negative Negative Urine Urobilinogen Normal Negative mg/dL Urine Leukocyte Esterase 1+ Negative /uL Urine RBC 2 0 - 4 /hpf Urine Microscopic WBC 7 H 0-5 /HPF Urine Squamous Epithelial Cells Few <5 /hpf Urine Amorphous Crystals Few None Seen /hpf Urine Bacteria Few H None Seen /hpf Urine Glucose Normal Normal mg/dL Urine Opiates Screen Neg NEGATIVE Urine Fentanyl Screen Neg NEGATIVE Urine Barbiturates Screen Neg NEGATIVE Urine Phencyclidine Screen Neg NEGATIVE Urine Amphetamines Screen Neg NEGATIVE Urine Benzodiazepines Screen Neg NEGATIVE Urine Cocaine Screen Neg NEGATIVE Urine Cannabinoids Screen Neg NEGATIVE Assessment Noncardiac chest pain, likely GERD Likely NSTEMI Type II 2/2 demand ischemia from acute anemia/ status Rule out structural heart disease Demarcus's thyroiditis Sjogren's syndrome History of GERD Plan/Recommendation (Dr. Latif) Patient presents with noncardiac chest pain and a troponin elevation likely secondary to demand ischemia given acute anemia and status. Continue with a transthoracic echocardiogram to evaluate cardiac function. Agree with admission to telemetry unit. Continue Pepcid, Maalox, and Tums for symptom relief. Consider discontinuation of ibuprofen given likely GERD exacerbation. In the setting of an unremarkable echocardiogram, there is no further cardiac workup indicated at this time. Consider outpatient follow up with Cardiology if deemed necessary. Thank you for allowing us to participate in this patient's care. Please call if you have any questions or concerns. Critical care time: 35 min. This medical document was created using an electronic medical record system with voice recognition software and computerized dictation system. Although this document has been carefully reviewed, there might still be some phonetic and typographical errors. Occa sional wrong-word or ``sound-alike substitutions may have occurred due to the inherent limitations of voice recognition software. These areas are purely typographical due to imperfections of the software programs and do not reflect any compromise in the patient's medical care. Please read the chart carefully and recognize, using context, where these substitutions have occurred. Plan discussed with: Patient, Spouse, Other NYHA Physical activity limitations: NA Date of Service: October 05, 2024 Billing Provider: GHASSAN DELVALLE Cardiology Common Codes: [id number] CARE 30-74 MIN GHASSAN DELVALLE October 05, 2024 16:50
--- NOTE | 2024-10-05 17:18 | DVH ---
Bilateral lower extremity venous duplex Clinical History: swelling Comparison: None Technique: Duplex Doppler evaluation of the deep venous systems of both lower extremities from the common femora l veins to the popliteal veins including color Doppler and spectral/pulsed waveform analysis was perf ormed. Findings: RIGHT SIDE: The common femoral vein demonstrates appropriate compressibility and waveform variability. There is compressibility/patency of the great saphenous vein at the proximal thigh. The femoral vein demonstrates appropriate compressibility and waveform variability. The deep femoral vein demonstrates appropriate compressibility and waveform variability. The popliteal vein demonstrates appropriate compressibility and waveform variability. There is normal compressibility at the tibioperoneal trunk. LEFT SIDE: The common femoral vein demonstrates appropriate compressibility and waveform variability. There is compressibility/patency of the great saphenous vein at the proximal thigh. The femoral vein demonstrates appropriate compressibility and waveform variability. The deep femoral vein demonstrates appropriate compressibility and waveform variability. The popliteal vein demonstrates appropriate compressibility and waveform variability. There is normal compressibility at the tibioperoneal trunk. Impression: 1. No right or left femoropopliteal venous thrombosis.
[2024-10-05] MEDS: MAALOX PLUS or MAALOX 30 ML PO SCH (21:40)
--- NOTE | 2024-10-05 23:36 | DVHSR ---
APPROVED REPORT EXAM: Two-dimensional and M-mode echocardiogram with Doppler and color Doppler. Blood Pressure: 113/53 mmHg INDICATION Elevated Trop RISK FACTORS Height: 5' 3", Weight: 183 DIMENSIONS LVDd4.5 (3.8-5.7cm)LA (2D)3.7 (1.9-4.0cm)Aortic Root2.6 (2.0-3.7cm) LVDs3.1 (2.5-4.0cm)LA (MM) (1.9-4.0cm)Aortic Cusp Exc1.5 (1.5-2.0cm) EF (%) 60.0 (55-70%)Rt. Atrium4.0 (1.9-4.0cm)Asc. Aorta cm IVSd1.0 (0.7-1.1cm)RV (D) (1.8-2.4cm) PWd1.0 (0.7-1.1cm) Mitral Valve MitralMitral Stenosis E wave1.30m/sMV Mean GR.mmHg A wave0.80m/sMV Peak GR.mmHg E/A ratio1.62D MVAcm2 Aortic Valve Aortic ValveAortic Stenosis V10.90m/Pierce Mean GR.6mmHg V21.60m/Pierce Peak GR.11mmHg LVOT Diameter1.9 (1.8-2.4cm)Doppler AVA1.59cm2 Pulmonic Valve V20.80m/s Tricuspid Valve TR Velocity2.60m/s [id number] Conclusion Left ventricle is normal in size The ventricular systolic function is preserved Ejection fraction is estimated at 60% There is mild biatrial enlargement There is mild mitral regurgitation There is [id number] tricuspid regurgitation Right ventricular systolic pressure is estimated to be within normal limit There is no pericardial effusion
[2024-10-06 05:00] VITALS: BP 126/60; PULSE 88; RESP 19; TEMP 98; O2SAT 96
[2024-10-06] MEDS: LEVOTHYROXINE SODIUM 50 MCG TAB PO SCH (05:40)
[2024-10-06 06:06] LABS: Basophils # (auto) 0 10 ^3/uL (0-0.2); Eosinophils # (auto) 0.2 10 ^3/uL (0-0.8); Eosinophils % (auto) 0.8 % (0.0-7.0); Monocytes # (auto) 0.8 10 ^3/uL (0-1.3); Red Cell Distribution Width 14.1 % (11.8-14.3)
[2024-10-06 06:10] LABS: Basophils % (auto) 0.1 % (0.0-2.0); Hematocrit 21.6 % (36.0-46.0); Hemoglobin 7.3 g/dL (12.2-16.2); Lymphocytes # (auto) 2.7 10 ^3/uL (0.4-5.4); Lymphocytes % (auto) 13.2 % (10.0-50.0); Mean Corpuscular Hemoglobin 28.5 pg (28.0-32.0); Mean Corpuscular Hgb Conc. 33.6 g/dL (32.0-36.0); Mean Corpuscular Volume 84.7 fL (80.0-100.0); Monocytes % (auto) 3.7 % (0.0-12.0); Neutrophils # (auto) 16.8 10 ^3/uL (1.6-8.6); Neutrophils % (auto) 82.2 % (37.0-80.0); Platelet Count (auto) 226 10^3/uL (140-450); Red Blood Cells 2.54 10^6/uL (4.0-5.20); White Blood Cell 20.5 10^3/uL (4.4-10.8)
[2024-10-06 06:34] LABS: Alanine Aminotransferase 11 U/L (7-40); Anion Gap 11 (5-15); BUN/Creatinine Ratio 15.4 (10.0-20.0); Blood Urea Nitrogen 12 mg/dL (9-23); Carbon Dioxide 22 mmol/L (20-31); Sodium 142 mmol/L (136-145)
[2024-10-06 06:35] LABS: Aspartate Aminotransferase 20 U/L (13-40)
--- NOTE | 2024-10-06 06:36 | DVHPN2 ---
Chief Complaints Patient reports: No new complaints, Feels better Nursing reports: No new complaints Objective Vitals Vital Signs Date Time Temp Pulse Resp B/P (MAP) Pulse Ox O2 Delivery O2 Flow Rate FiO2 10/06/24 05:00 98.0 88 19 126/60 (82) 96 98.0 10/05/24 20:00 Room Air* 0 21 Medications Current Medications Medications (Trade) Dose Ordered Sig/Isaias Route PRN Reason Start Time Stop Time Status Last Admin Al Hydrox/Mg Hydrox/Simethicone (Maalox Plus) 30 ml Q8HR PO 10/05/24 22:00 10/06/24 05:40 Clindamycin Phosphate 50 ml @ 50 mls/hr Q8H IV 10/05/24 14:00 10/07/24 13:59 10/06/24 05:42 Docusate Sodium (Colace Capsule) 200 mg DAILY PO 10/05/24 07:00 10/05/24 07:27 Levothyroxine Sodium (Synthroid Tablet) 50 mcg QAM@0600 PO 10/06/24 06:00 10/06/24 05:40 Prenat Multivit/ Video Editing Intern/Iron/Folic Ac (Prenavite Tablet) 1 DAILY PO 10/05/24 10:00 10/05/24 10:09 General: Normal Lungs: Normal Cardiovascular: Normal Abdominal: Soft Extremities: Normal Studies Test 10/06/24 04:19 Range/Units Serum Glucose Pending Ass/Plan Assessment s/p chest pain resolved cleared by cardiology Plan pt wants to be discharge home ,clear for dc if ok with medicine per cardiology pt is also clear for dc Visit Coding OBGYN Date of Service: October 06, 2024 Billing Provider: MARY PAULINO DO [employer]UR[employer] ELECTRIC OPERATOR Common Visit Codes: 91344-ZBX/OBS SAME DATE (MOD) MARY PAULINO DO October 06, 2024 06:36
[2024-10-06 06:49] LABS: Albumin 2.9 g/dL (3.2-4.8); Alkaline Phosphatase 141 U/L (46-116); Bilirubin, Total 0.2 mg/dL (0.2-1.0); Calcium 8.2 mg/dL (8.7-10.4); Chloride 109 mmol/L (98-107); Glucose 118 mg/dL (74-106); Potassium 3.4 mmol/L (3.5-5.1); Total Protein 5.1 g/dL (5.7-8.2)
--- NOTE | 2024-10-06 06:56 | DVHDS2 ---
Obstetrics Discharge Summary Obstetrics Discharge Summary Date of Admission: October 03, 2024 Date of Discharge: October 06, 2024 Reason For Admission: Induction of Labor Procedures: NST Intrapartum Procedures: Spontaneous vaginal deliv Procedures: None Operative Complicat: Laceration (Perineal) Discharge Diagnosis: Term -Delivered, Others (chestpain,gerd,hypothyroid) Discharge Information: Activity (Other), Diet (Routine), Medications (None), Instructions (Routine), Discharge to (Home), Discarge date (-) Visit Coding OBGYN Date of Service: October 06, 2024 Billing Provider: MARY PAULINO DO BATHHOUSE ATTENDANT Common Visit Codes: 93260-CWJ/OBS DISCH DAY >30MIN BATHHOUSE ATTENDANT Procedure Codes: 16316-QUY DELIVERY ONLY MARY PAULINO DO October 06, 2024 06:56
[2024-10-06 08:00] VITALS: PULSE 99
[2024-10-06] MEDS: POTASSIUM EFFERVESENT TAB 25 MEQ PO ONE (08:20)
--- NOTE | 2024-10-06 08:46 | DVHPN2 ---
Assessment/Plan Assessment/Plan Medicine consult note 34 F A0 with hx of GDM, sharita, sjogren, and H pylory not eradicated. patient presented with 2 days of chest and epigastric tightness, worse when laying flat, improved with sitting up. Had bitter taste in mouth uppon waking up. Hx of hpylori but no treatment as patient was at that time. No radiation, diaphoresis, palpitation, syncope. Also found trace edema on b/l legs, equal, unchanged since delivery. Denies smoking, alcohol and drug use. Compliant with meds, taking levohyroxin at home. Was given cytotec for induction of labor. On my assessment symptoms persists but mild. Denies N/V, diarrhea, constipation, headache, dizziness, weakness. Appropriate abdominal tenderness. Pain improved. trop elevation trending down likely 2/2 anemic demand ischemia Physical exam AOx4 Cooperative PERRLA MMM Clear breath sounds, no wheezing S1 S2 rrr no murmur Abdomen gravid trace LE edema equal b/l Labs reviewed, leukocytosis, anemia appropriate with and delivery, TSH 7.5, T4 0.83 EKG reviewed bedside, NSR, borderline low voltage Bedside echo done, preserved function, no RMWA, grossly normal valves and volumes, IVC collapsible, no pericardial eff Assessment and plan Chest tightness r/o DVT/PE GERD + H pylori Hypothyroidism 2/2 sharita sjogrens no flares GDM type 2 VT 2/2 demand likely from anemia c/w pepcid, maalox pepcid 40mg QD, maalox q8 c/w levothyroxine, recheck in 3 months outpatient can use syntethic tears if needed FS ACHS, will add insulin regimen as appropriate, BG stable stable to dc from medicine rest of care per primary team Diet per primary dvt ppx ambulatory Plan discussed with: Patient My Orders Orders - HAWA HERNANDEZ MD Procedure Category Date Status Time Bilat Lower Dvt US 10/05/24 Resulted 15:17 Alum & Mag PHA 10/05/24 In Process Hydrox-Simethicone 22:00 Chest Xray 1 View XY 10/05/24 Resulted 15:23 Incentive Spirometry ORDERS 10/05/24 Transmitted 15:55 * Cardiology Consult CONS 10/05/24 Transmitted 16:09 Echo 2d Mode Cardiac US 10/05/24 Resulted DOP 16:12 Transfer Orders XFER 10/05/24 Transmitted 16:16 Date of Service: October 06, 2024 Billing Provider: HAWA HERNANDEZ MD Common Visit Codes: [id number] INP/OBS CARE(MOD) HAWA HERNANDEZ MD October 06, 2024 08:46
--- NOTE | 2024-10-06 08:57 | DVHPN2 ---
Consult Progress Note Date Seen: October 06, 2024 Subjective Review of Systems: CVS:Normal, RESPIRATORY:Normal, NEURO:Normal Other Systems: Denies any further chest pain Objective vital signs Vital Sign Date Time Temp Pulse Resp B/P (MAP) Pulse Ox O2 Delivery O2 Flow Rate FiO2 10/06/24 05:00 98.0 88 19 126/60 (82) 96 98.0 10/05/24 20:00 Room Air* 0 21 Total Intake and Output 10/05/24 10/05/24 10/06/24 15:00 23:00 07:00 Intake Total 158.125 ml 200 ml Output Total 500 ml Balance -500 ml 158.125 ml 200 ml medications Current Medications Medications Dose Ordered Sig/Isaias Route Start Time Stop Time Status Last Admin Dose Admin Lactated Ringer's 1,000 ml @ 125 mls/hr Q8H IV 10/03/24 07:30 10/06/24 00:23 125 MLS/HR Penicillin G Potassium [id number] units/Dextrose 50 ml @ 100 mls/hr Q4H IV 10/03/24 11:30 Cancel Witch Ariana 1 pad PRN PRN TOP 10/03/24 07:30 10/03/24 23:28 1 PAD Sodium Lauryl Sulfate 240 ml PRN PRN TOP 10/03/24 07:30 10/03/24 23:28 240 ML Benzocaine 1 applic PRN PRN TOP 10/03/24 07:30 10/03/24 23:28 1 APPLIC Misoprostol 50 mcg Q4HPRN PRN PO 10/03/24 08:30 10/03/24 13:30 50 MCG Ondansetron HCl 4 mg Q4HPRN PRN IV 10/03/24 22:15 10/04/24 14:53 4 MG Famotidine 20 mg Q12HR IV 10/04/24 01:30 10/06/24 08:21 20 MG Gentamicin Sulfate 0 ml @ 0 mls/hr PER PHARMACY IV 10/04/24 18:30 10/06/24 18:29 Methylergonovine Maleate 0.2 mg Q8HP PRN IM 10/04/24 18:15 10/06/24 18:14 10/05/24 03:44 0.2 MG Gentamicin Sulfate 325 mg/ Dextrose 108.125 ml @ 103.966 mls/hr Q24H IV 10/04/24 19:00 10/06/24 18:59 10/05/24 20:47 103.966 MLS/HR Diphenhydramine HCl 25 mg Q4HP PRN IV 10/04/24 19:30 10/04/24 19:48 25 MG Calcium Carbonate 500 mg QIDPRN PRN PO 10/04/24 23:45 10/05/24 01:15 500 MG Ibuprofen 600 mg Q6HP PRN PO 10/05/24 02:45 10/06/24 08:35 600 MG Acetaminophen 650 mg Q6HPRN PRN PO 10/05/24 02:45 10/05/24 05:58 650 MG Prenat Multivit/ [place]/Iron/Folic Ac 1 DAILY PO 10/05/24 10:00 10/06/24 08:20 1 Docusate Sodium 200 mg DAILY PO 10/05/24 07:00 10/06/24 08:19 200 MG Clindamycin Phosphate 50 ml @ 50 mls/hr Q8H IV 10/05/24 14:00 10/07/24 13:59 10/06/24 05:42 50 MLS/HR Levothyroxine Sodium 50 mcg QAM@0600 PO 10/06/24 06:00 10/06/24 05:40 50 MCG Al Hydrox/Mg Hydrox/Simethicone 30 ml Q8HR PO 10/05/24 22:00 10/06/24 05:40 30 ML Examination: GENERAL:Abnormal (Pale), LUNGS:Normal, CVS:Normal, NEURO:Normal laboratory and microbiology Laboratory Tests 10/06/24 04:19 Test 10/06/24 04:19 Range/Units Serum Glucose 118 H 74-106 mg/dL Problem List/Assessment/Plan Problem List/Assessment/Plan Noncardiac chest pain, likely GERD Likely NSTEMI Type II 2/2 demand ischemia from acute anemia/ status Rule out structural heart disease Demarcus's thyroiditis Sjogren's syndrome History of GERD Plan/Recommendation (Dr. Latif) Patient presents with noncardiac chest pain and a troponin elevation likely secondary to demand ischemia given acute anemia and status. A transthoracic echocardiogram revealed LVEF of 60%. Continue Pepcid, Maalox, and Tums for symptom relief. Consider discontinuation of ibuprofen given likely GERD exacerbation. Monitor H&H closely and transfuse if <7, repeat H&H ordered for noon. Iron panel ordered. Replete electrolytes as necessary. Consider outpatient follow up with Cardiology if deemed necessary. Rest of plan per primary care team. We will sign off at this time. Kindly call with any questions or concerns. Thank you for allowing us to participate in this patient's care. Critical care time: 35 min. This medical document was created using an electronic medical record system with voice recognition software and computerized dictation system. Although this document has been carefully reviewed, there might still be some phonetic and typographical errors. Occasional wrong-word or ``sound-alike substitutions may have occurred due to the inherent limitations of voice recognition software. These areas are purely typographical due to imperfections of the software programs and do not reflect any compromise in the patient's medical care. Please read the chart carefully and recognize, using context, where these substitutions have occurred. Plan discussed with: Patient, Other Date of Service: October 06, 2024 Billing Provider: GHASSAN DELVALLE Cardiology Common Codes: [id number] INP/OBS CARE(Mod) GHASSAN DELVALLE October 06, 2024 08:57
[2024-10-06 09:00] VITALS: BP 106/47; PULSE 74; RESP 19; TEMP 98.3; O2SAT 93
[2024-10-06] MEDS: MAGNESIUM SULFATE 1GM/100ML 100 ML IV ONE (09:27)
[2024-10-06] MEDS ORDERED: MAA30LQ PO (10:12)
[2024-10-06 10:21] LABS: % Iron Saturation 6.4 % (15-50)
--- NOTE | 2024-10-06 10:41 | ECG ---
[facility] Test Date: 2024-10-05 Test Time: 15:04:14 Pat Name: KIARA FLEMING Department: Room: 0201T A Gender: F Time Clerk: KOLBY : 1990 Requested By: MARY PAULINO Order Number: [id number] Reading MD: Nick Latif Measurements Intervals [place] Rate: 65 P: 39 AK: 148 QRS: 72 QRSD: 80 T: 51 QT: 402 QTc: 418 Interpretive Statements Normal sinus rhythm Low voltage QRS Electronically Signed On 10-07-2024 20:51:22 PDT by Nick Latif Please click the below link to view image of tracing.
[2024-10-06 10:42] VITALS: BP 106/47; PULSE 74; RESP 19; TEMP 98.3; O2SAT 94
[2024-10-06 12:30] VITALS: BP 110/59; PULSE 69; RESP 17; TEMP 97.6; O2SAT 98
[2024-10-06 12:32] LABS: Hematocrit 21.1 % (36.0-46.0); Hemoglobin 7.1 g/dL (12.2-16.2)
== END 2024-10-06 13:00 | disposition home or self-care (01) | DRG 805 ==
LOC: EEVIPCON 07:14 → LDRP 07:14 → TELE-CENTR 10-05 17:18
PROVIDERS: ADMIT Student in an Organized Health Care Education/Training Program; ATTEND Student in an Organized Health Care Education/Training Program
PROC: 10E0XZZ Delivery of Products of Conception, External Approach (ICD-10-PCS; principal; 2024-10-05)
PROC: 0HQ9XZZ Repair Perineum Skin, External Approach (ICD-10-PCS; 2024-10-05)
PROC: 3E033VJ Introduction of Other Hormone into Peripheral Vein, Percutaneous Approach (ICD-10-PCS; 2024-10-05)
PROC: 3E0R3BZ Introduction of Anesthetic Agent into Spinal Canal, Percutaneous Approach (ICD-10-PCS; 2024-10-05)
PROC: 00HU33Z Insertion of Infusion Device into Spinal Canal, Percutaneous Approach (ICD-10-PCS; 2024-10-05)
DX: O24.420 Gestational diabetes mellitus in childbirth, diet controlled (principal); I21.A1 Myocardial infarction type 2; Z37.0 Single live birth; O99.42 Diseases of the circulatory system complicating childbirth; M35.00 Sjogren syndrome, unspecified; E06.3 Autoimmune thyroiditis; O99.284 Endocrine, nutritional and metabolic diseases complicating childbirth; Z3A.39 39 weeks gestation of pregnancy; K21.9 Gastro-esophageal reflux disease without esophagitis; O99.62 Diseases of the digestive system complicating childbirth; O69.81X0 Labor and delivery complicated by cord around neck, without compression, not applicable or unspecified; O70.0 First degree perineal laceration during delivery; B96.81 Helicobacter pylori [H. pylori] as the cause of diseases classified elsewhere; Z88.1 Allergy status to other antibiotic agents
CPT/HCPCS: 36415; 59025; 59200; 59409; 62282; 71045; 80048; 80053; 80307; 81001; 82948; 82962; 83540; 83550; 83735; 84439; 84443; 84484; 85014; 85018; 85025; 85610; 85730; 86703; 86780; 86803; 86850; 86900; 86901; 93005; 93306; 93970; 94762; 96360; 96361; 96365; 96366; 96372; 96374; 96375; A4344; G0378; J2405; J2590; J3490; J7060

== ENCOUNTER 2024-11-01 14:29 | Outpatient (CLI) | payer BC ==
[~2024-11-01 14:29] MED LIST changes: -CEPH250C PO; -DOXY25TA9 PO; +IBUP-1456 PO; +LEVO-848 PO; -LEVO25TA6 PO; +MAA30LQ PO
[2024-11-01 14:42] LABS: Basophils # (auto) 0 10 ^3/uL (0-0.2); Basophils % (auto) 0.5 % (0.0-2.0); Eosinophils # (auto) 0.3 10 ^3/uL (0-0.8); Eosinophils % (auto) 4.6 % (0.0-7.0); Hematocrit 32.8 % (36.0-46.0); Hemoglobin 10.9 g/dL (12.2-16.2); Lymphocytes % (auto) 41.4 % (10.0-50.0); Mean Corpuscular Hemoglobin 27.9 pg (28.0-32.0); Mean Corpuscular Hgb Conc. 33.3 g/dL (32.0-36.0); Mean Corpuscular Volume 83.8 fL (80.0-100.0); Monocytes # (auto) 0.7 10 ^3/uL (0-1.3); Monocytes % (auto) 9.2 % (0.0-12.0); Neutrophils # (auto) 3.2 10 ^3/uL (1.6-8.6); Neutrophils % (auto) 44.3 % (37.0-80.0); Nucleated Red Blood Cells % 0.1 %; Platelet Count (auto) 349 10^3/uL (140-450); Red Blood Cells 3.91 10^6/uL (4.0-5.20); Red Cell Distribution Width 14.5 % (11.8-14.3); White Blood Cell 7.2 10^3/uL (4.4-10.8)
== END 2024-11-01 17:00 | disposition home or self-care (01) ==
LOC: LAB 14:29
PROVIDERS: ATTEND Obstetrics & Gynecology
DX: D64.9 Anemia, unspecified (principal)
CPT/HCPCS: 36415; 85025

== ENCOUNTER 2025-02-06 08:48 | Outpatient (CLI) | payer BC ==
[2025-02-06 09:27] LABS: Hematocrit 36.5 % (36.0-46.0); Hemoglobin 12.2 g/dL (12.2-16.2); Mean Corpuscular Hemoglobin 27.0 pg (28.0-32.0); Mean Corpuscular Volume 80.6 fL (80.0-100.0); Nucleated Red Blood Cells % 0.0 %
== END 2025-02-06 17:00 | disposition home or self-care (01) ==
LOC: LAB 08:48
PROVIDERS: ATTEND Obstetrics & Gynecology
DX: Z34.00 Encounter for supervision of normal first pregnancy, unspecified trimester (principal); Z3A.00 Weeks of gestation of pregnancy not specified
CPT/HCPCS: 36415; 82951; 83036; 85025

== ENCOUNTER → 2025-03-26 | Outpatient (CLI) | payer BC ==
[2025-03-26 14:48] LABS: Hematocrit 36.9 % (36.0-46.0); Hemoglobin 12.3 g/dL (12.2-16.2); Mean Corpuscular Hemoglobin 27.3 pg (28.0-32.0); Mean Corpuscular Volume 81.8 fL (80.0-100.0); Nucleated Red Blood Cells % 0.0 %
== END | disposition home or self-care (01) ==
LOC: LAB 14:20
PROVIDERS: ATTEND Obstetrics & Gynecology
DX: N39.0 Urinary tract infection, site not specified (principal); Z01.419 Encounter for gynecological examination (general) (routine) without abnormal findings
CPT/HCPCS: 36415; 85025; 87086

== ENCOUNTER 2025-04-11 03:57 | Emergency (ER) | payer BC ==
[~2025-04-11] VITALS: Ht 160 cm; Wt 77.2 kg
[2025-04-11 04:21] VITALS: BP 128/92; PULSE 87; RESP 18; TEMP 97.8; O2SAT 97
[2025-04-11] MEDS ORDERED: PRED20TA2 PO (04:27)
[2025-04-11] MEDS ORDERED: DIPH25CA66 PO (04:27)
--- NOTE | 2025-04-11 04:27 | ED.PDOC ---
HPI Allergic reaction HPI Comments 34-year-old female presents to ER with complaints of allergic reaction x4 hours. Patient reports he started developing itchy red hives to bilateral forearms and back 4 hours prior to arrival to ER while resting at home. Denies any known triggers and reports that she did take Benadryl 3 hours prior to arrival to ER with slight relief. Patient presents to ER ambulatory on arrival, with steady gait, in no distress with mild urticaria noted to bilateral arms. Denies shortness of breath, chest pain, nausea/vomiting, diet changes or any further symptoms/complaints Chief Complaint: Rash Time Seen by MD: 04:12 Primary Care Provider: JAENT Reviewed Notes: Nurses Notes, Medications, Allergies Allergies: Coded Allergies: Cephalosporins (Verified Allergy, Intermediate, 10/04/24) Home Meds Active Scripts Diphenhydramine Hcl (Benadryl Allergy) 25 Mg Cap, 2 CAP PO Q6HPRN, #30 CAP 0 Refills Prov:DEMAR PENNY 04/11/25 Prednisone (Prednisone) 20 Mg Tab, 20 MG PO BID for 5 Days, #10 TAB 0 Refills Prov:DEMAR PENNY 04/11/25 Alum & Mag Hydrox-Simethicone (Maalox Plus) 30 Ml Ss, 30 ML PO QIDPRN PRN for 30 Days, #1200 ML Prov:HAWA HERNANDEZ MD 10/06/24 Levothyroxine Sodium (SYNTHROID TABLET) 50 Mcg Tb, 1 TAB PO DAILY, #90 TAB 0 Refills generic substitute okay Prov:ASHLEY MCCLELLAND CNM 10/05/24 Ibuprofen (Ibuprofen) 800 Mg Tab, 1 TAB PO TID, #90 TAB Prov:ASHLEY MCCLELLAND CNM 10/05/24 Reported Medications Vit W/ Ferrous Fumara ( One Daily) Daily Tab, 1 TAB PO DAILY, #90 TAB 3 Refills 08/15/24 Information Source: Patient Mode of Arrival: Ambulatory Past Medical History PAST MEDICAL HISTORY: Thyroid Surgical History: Denies all surgeries RECYCLE WORKER History: Denies all RECYCLE WORKER Hx Family History Family History: Unknown Social History Smoker: Non-Smoker Alcohol: Denies ETOH Use Drugs: Denies Drug Use Lives In: Home Constitutional: denies: chills, diaphoresis, fatigue, fever, malaise, sweats, weakness, others EENTM: denies: blurred vision, double vision, ear bleeding, ear discharge, ear drainage, ear pain, ear ringing, eye pain, eye redness, hearing loss, mouth pain, mouth swelling, nasal discharge, nose bleeding, nose congestion, nose pain, photophobia, tearing, throat pain, throat swelling, voice changes, others Respiratory: denies: cough, hemoptysis, orthopnea, SOB at rest, shortness of breath, SOB with excertion, stridor, wheezing, others Cardiovascular: denies: chest pain, dizzy spells, diaphoresis, Dyspnea on exertion, edema, irregular heart beat, left arm pain, lightheadedness, palpitations, PND, syncope, others Gastrointestinal: denies: abdomen distended, abdominal pain, blood streaked bowels, constipated, diarrhea, dysphagia, difficulty swallowing, hematemesis, melena, nausea, poor appetite, poor fluid intake, rectal bleeding, rectal pain, vomiting, others Genitourinary: denies: abnormal vagina bleeding, burning, dyspareunia, dysuria, flank pain, frequency, hematuria, incontinence, pain, , vagina discharge, urgency, others Neurological: denies: dizziness, fainting, headache, left sided numbness, left sided weakness, numbness, paresthesia, pre-existing deficit, right sided numbness, right sided weakness, seizure, speech problems, tingling, tremors, weakness, others Musculoskeletal: denies: back pain, gout, joint pain, joint swelling, muscle pain, muscle stiffness, neck pain, others Integumetry: reports: others (As stated in HPI) Allergic/Immunocompromised: reports: others (As stated in HPI) Hematologic/Lymphatic: denies: anemia, blood clots, easy bleeding, easy bruising, swollen glands, others Endocrine: denies: excessive hunger, excessive sweating, excessive thirst, excessive urination, flushing, intolerance to cold, intolerance to heat, unexplained weight gain, unexplained weight loss, others Psychiatric: denies: anxiety, bipolar disorder, depression, hopeless, panic disorder, schizophrenia, sleepless, suicidal, others Physical Exam General Appearance: No Apparent Distress, Obese HEENT: Normal ENT Inspection, PERRL/EOMI, Pharynx Normal, TMs Normal Neck: Full Range of Motion, Non-Tender, Normal Respiratory: Chest Non-Tender, Lungs Clear, No Accessory Muscle Use, No Respiratory Distress, Normal Breath Sounds Cardiovascular: No Murmur, No Gallop, Regular Rate/Rhythm Breast Exam: Deferred Gastrointestinal: NOT DONE Genitalia: Deferred Pelvic: Deferred Rectal: Deferred Extremities: Normal capillary refill, Normal range of motion Neurologic: Alert, No Motor Deficits, Normal Affect, Normal Mood, No Sensory Deficits Cerebellar Function: Normal Reflexes: Normal Skin: Dry, Warm, Other (Mild urticaria noted to bilateral arms. No angioedema/further skin changes noted) Peripheral Pulses: 2+ carotid (R), 2+ carotid (L), 2+ Radial (R), 2+ Radial (L), 2+ Brachial (R), 2+ Brachial (L) Lymphatic: No Adenopathy Was a procedure done? Was a procedure done?: No Sedation Sedation?: No Differential diagnosis (all) Differential Diagnosis: Anaphylaxis, Angioedema, Contact Dermatitis, Drug Reaction X-Ray, Labs, Meds, VS Vital Signs Date Time Temp Pulse Resp B/P (MAP) Pulse Ox O2 Delivery O2 Flow Rate FiO2 04/11/25 04:21 97.8 87 18 128/92 (104) 97 97.8 04/11/25 04:21 97 Room Air* 0 21 04/11/25 03:59 97.8 87 18 128/92 97 97.8 Solu-Medrol 125 mg IM ordered Benadryl 25 mg IM ordered Patient in no distress during ER visit/prior to discharge Advised to drink plenty of fluids Advised to follow up with PCP in 1-2 days Patient verbalized understanding and agreeable with current plan of care Advised to return to ER immediately if symptoms worsen Time of 1ST Reevaluation: 04:12 Reevaluation 1ST: N/A Patient Education/Counseling: Diagnosis, Treatment, Prognosis, Need For Follow Up Family Education/Counseling: Diagnosis, Treatment, Prognosis, Need For Follow Up SEPSIS Sepsis Screen Date sepsis recognized/suspect: Apr 11, 2025 Time Sepsis recognized/suspect: 040 Recent Procedure: No On Antibiotic Therapy: No Respiratory Rate >20: No Heart Rate >90: No Temp<36 C (96.8 F) or >38.3 C: No SBP <90 or MAP <65 mmHG: No New Acute Mental Status Change: No Is the patient on CPAP, BIPAP,: No Physician Orders Methylprednisolone Sod Succ (Solu Medrol (04/11/25 04:30) Diphenhydramine Injection (Benadryl Inje (04/11/25 04:30) Vital Signs Date Time Temp Pulse Resp B/P (MAP) Pulse Ox O2 Delivery O2 Flow Rate FiO2 04/11/25 04:21 97.8 87 18 128/92 (104) 97 97.8 04/11/25 04:21 97 Room Air* 0 21 04/11/25 03:59 97.8 87 18 128/92 97 97.8 Departure 1 Departure Time of Disposition: 04:25 Impression: Primary Impression: Allergic reaction Qualified Codes: [id number] - Allergy, unspecified, initial encounter Disposition: HOME / SELF CARE / HOMELESS Condition: Stable e-Prescriptions Diphenhydramine Hcl (Benadryl Allergy) 25 Mg Cap 2 CAP PO Q6HPRN, #30 CAP 0 Refills Prov: DEMAR PENNY 04/11/25 Prednisone (Prednisone) 20 Mg Tab 20 MG PO BID for 5 Days, #10 TAB 0 Refills Prov: DEMAR PENNY 04/11/25 Discharged With: Significant Other Critical Care Note Critical Care Time?: No Stability Stability form required: No Heart Score Heart Score: Heart Score Response (Comments) Value History N/A 0 EKG N/A 0 Age N/A 0 Risk Factors N/A 0 Troponin N/A 0 Total 0 DEMAR PENNY Apr 11, 2025 04:27
[2025-04-11] MEDS: methylPREDNISolone SOD SUCC 125 MG/2 ML VL IM ONE (04:33)
[2025-04-11] MEDS: diphenhydrAMINE HCL 50 MG/1 ML VL IM ONE (04:33)
== END 2025-04-11 04:39 | disposition home or self-care (01) ==
LOC: ER 03:57 → EEVIPCON 03:57 → ER 04:39
DX: T78.40XA Allergy, unspecified, initial encounter (principal); X58.XXXA Exposure to other specified factors, initial encounter; Z79.1 Long term (current) use of non-steroidal anti-inflammatories (NSAID); Z79.52 Long term (current) use of systemic steroids; Z88.1 Allergy status to other antibiotic agents
CPT/HCPCS: 96372; 99284; J1200; J2919

== ENCOUNTER 2025-04-13 12:49 | Inpatient (IN) | payer BC ==
[~2025-04-13] VITALS: Ht 160 cm; Wt 81.0 kg
[~2025-04-13 12:49] MED LIST changes: +DIPH25CA66 PO; +PRED20TA2 PO
[2025-04-13 12:54] VITALS: TEMP 98
--- NOTE | 2025-04-13 13:06 | ECG ---
[facility] Test Date: 2025-04-13 Test Time: 12:55:45 Pat Name: KIARA FLEMING Department: ED Room: [address] [place] [address] Gender: F Oyster Grader: CHRIS : 1990 Requested By: AYLEEN DE DIOS Order Number: [id number] Reading MD: Nick Latif Measurements Intervals [place] Rate: 52 P: 59 [place]: 132 QRS: 93 QRSD: 103 T: 55 QT: 416 QTc: 387 Interpretive Statements Sinus rhythm Borderline right axis deviation Nonspecific T abnormalities, anterior leads Electronically Signed On 04-13-2025 15:05:25 PST by Nick Latif Please click the below link to view image of tracing.
[2025-04-13 13:13] VITALS: BP 114/69; PULSE 48; RESP 15; O2SAT 94
--- NOTE | 2025-04-13 13:32 | ED.PDOC ---
History of Present Illness HPI Comments 34 y/o obese F presents with spouse for c/c of nonradiating, midsternal chest tightness, throat pain, and generalized rash and itchiness. Significant history for Demarcus's disease, H. Pylori, Sjogren's disease, and demand ischemia and a paternal family history of cardiac disease and stroke. Patient reports on returning to the ED after being evaluated for symptoms 2x days ago, due to symptoms worsening following steroidal injection and steroid and Benadryl medication regimen placement following discharge home. Denies any known triggers. She denies any throat swelling, shortness of breath, fever, palpitations, or further acute symptoms. Chief Complaint: Chest Pain Time Seen by MD: 13:00 Primary Care Provider: JANET Reviewed Notes: Nurses Notes, Medications, Allergies Allergies: Coded Allergies: Cephalosporins (Verified Allergy, Intermediate, 10/04/24) Home Meds Active Scripts Diphenhydramine Hcl (Benadryl Allergy) 25 Mg Cap, 2 CAP PO Q6HPRN, #30 CAP 0 Refills Prov:DEMAR PENNY 04/11/25 Prednisone (Prednisone) 20 Mg Tab, 20 MG PO BID for 5 Days, #10 TAB 0 Refills Prov:DEMAR PENNY 04/11/25 Alum & Mag Hydrox-Simethicone (Maalox Plus) 30 Ml Ss, 30 ML PO QIDPRN PRN for 30 Days, #1200 ML Prov:HAWA HERNANDEZ MD 10/06/24 Levothyroxine Sodium (SYNTHROID TABLET) 50 Mcg Tb, 1 TAB PO DAILY, #90 TAB 0 Refills generic substitute okay Prov:ASHLEY MCCLELLAND CNM 10/05/24 Ibuprofen (Ibuprofen) 800 Mg Tab, 1 TAB PO TID, #90 TAB Prov:ASHLEY MCCLELLANDM 10/05/24 Reported Medications Vit W/ Ferrous Fumara ( One Daily) Daily Tab, 1 TAB PO DAILY, #90 TAB 3 Refills 08/15/24 Information Source: Patient, Spouse Mode of Arrival: Ambulatory Severity: Moderate Timing: Days Duration: Since onset Prehospital treatment: Other (see HPI) Past Medical History PAST MEDICAL HISTORY: Thyroid (Demarcus's disease) Past Medical History (Other): Sjogren's disease Demarcus's disease H. Pylori demand ischemia Surgical History: Denies all surgeries FELT DYEING MACHINE TENDER History: Denies all FELT DYEING MACHINE TENDER Hx Family History Family History: Family hx of heart [place] ([place] - paternal ), Family hx of stroke (paternal ) Family History (Other): Paternal history of CABG Social History Smoker: Non-Smoker Alcohol: Denies ETOH Use Drugs: Denies Drug Use Lives In: Home Constitutional: denies: chills, diaphoresis, fatigue, fever, malaise, sweats, weakness, others EENTM: reports: throat pain; denies: blurred vision, double vision, ear bleeding, ear discharge, ear drainage, ear pain, ear ringing, eye pain, eye redness, hearing loss, mouth pain, mouth swelling, nasal discharge, nose bleeding, nose congestion, nose pain, photophobia, tearing, throat swelling, voice changes, others Respiratory: denies: cough, hemoptysis, orthopnea, SOB at rest, shortness of breath, SOB with excertion, stridor, wheezing, others Cardiovascular: reports: chest pain; denies: dizzy spells, diaphoresis, Dyspnea on exertion, edema, irregular heart beat, left arm pain, lightheadedness, palpitations, PND, syncope, others Gastrointestinal: denies: abdomen distended, abdominal pain, blood streaked bowels, constipated, diarrhea, dysphagia, difficulty swallowing, hematemesis, melena, nausea, poor appetite, poor fluid intake, rectal bleeding, rectal pain, vomiting, others Genitourinary: denies: abnormal vagina bleeding, burning, dyspareunia, dysuria, flank pain, frequency, hematuria, incontinence, pain, , vagina discharge, urgency, others Neurological: denies: dizziness, fainting, headache, left sided numbness, left sided weakness, numbness, paresthesia, pre-existing deficit, right sided numbness, right sided weakness, seizure, speech problems, tingling, tremors, weakness, others Musculoskeletal: denies: back pain, gout, joint pain, joint swelling, muscle pain, muscle stiffness, neck pain, others Integumetry: reports: rash, others (itchiness ); denies: bruises, change in color, change in hair/nails, dryness, laceration, lesions, lumps, wounds Allergic/Immunocompromised: denies: Difficulty Healing, Frequent Infections, Hives, Itching, others Hematologic/Lymphatic: denies: anemia, blood clots, easy bleeding, easy bruising, swollen glands, others Endocrine: denies: excessive hunger, excessive sweating, excessive thirst, excessive urination, flushing, intolerance to cold, intolerance to heat, unexplained weight gain, unexplained weight loss, others Psychiatric: denies: anxiety, bipolar disorder, depression, hopeless, panic disorder, schizophrenia, sleepless, suicidal, others All Other Systems: Reviewed and Negative Physical Exam General Appearance: Moderate Distress HEENT: Normal ENT Inspection, Pharynx Normal, TMs Normal Neck: Full Range of Motion, Non-Tender, Normal, Normal Inspection Respiratory: Chest Non-Tender, Lungs Clear, No Accessory Muscle Use, No Respiratory Distress, Normal Breath Sounds Cardiovascular: Bradycardia, No Edema, No JVD, No Murmur, No Gallop Breast Exam: Deferred Gastrointestinal: No Organomegaly, Non Tender, No Pulsatile Mass, Normal Bowel Sounds, Soft Genitalia: Deferred Pelvic: Deferred Rectal: Deferred Extremities: No calf tenderness, Normal capillary refill, No pedal edema Musculoskeletal : Apperance: Normal Neurologic: Alert, portrait photographer II-XII nml as Tested, No Motor Deficits, Normal Affect, Normal Mood, No Sensory Deficits Cerebellar Function: Normal Reflexes: Normal Skin: Dry, Normal Color, Warm Lymphatic: No Adenopathy Was a procedure done? Was a procedure done?: No EKG EKG #1: Pulse Rate (adult): 52 [place]: Normal Cardiac Rhythm: NSR Block: None Hypertrophy: None ST: Normal EKG #2: Pulse Rate (adult): 49 [place]: Normal Cardiac Rhythm: NSR Block: None Hypertrophy: None ST: Normal Differential Dx Considerations may include: [place], PE, ACS, URI, PNA, angina, anxiety, electrolyte imbalance, viral, gastritis, among others X-Ray, Labs, Meds, VS Vital Signs Date Time Temp Pulse Resp B/P (MAP) Pulse Ox O2 Delivery O2 Flow Rate FiO2 04/13/25 14:32 49 04/13/25 14:00 49 04/13/25 13:32 52 04/13/25 12:55 52 04/13/25 12:54 98.0 52 16 124/58 98 98.0 Lab Test 04/13/25 14:18 04/13/25 13:30 Range/Units Troponin I High Sensitivity < 3 L < 3 L </=34 ng/L White Blood Count 13.0 H 4.4-10.8 10^3/uL Red Blood Count 4.50 4.0-5.20 10^6/uL Hemoglobin 12.4 12.2-16.2 g/dL Hematocrit 37.0 36.0-46.0 % Mean Corpuscular Volume 82.3 80.0-100.0 fL Mean Corpuscular Hemoglobin 27.5 L 28.0-32.0 pg Mean Corpuscular Hemoglobin Concent 33.4 32.0-36.0 g/dL Red Cell Distribution Width 15.3 H 11.8-14.3 % Platelet Count 391 140-450 10^3/uL Mean Platelet Volume 7.3 6.9-10.8 fL Neutrophils (%) (Auto) 76.0 37.0-80.0 % Lymphocytes (%) (Auto) 19.7 10.0-50.0 % Monocytes (%) (Auto) 4.1 0.0-12.0 % Eosinophils (%) (Auto) 0.1 0.0-7.0 % Basophils (%) (Auto) 0.1 0.0-2.0 % Neutrophils # (Auto) 9.9 H 1.6-8.6 10 ^3/uL Lymphocytes # (Auto) 2.6 0.4-5.4 10 ^3/uL Monocytes # (Auto) 0.5 0-1.3 10 ^3/uL Eosinophils # (Auto) 0 0-0.8 10 ^3/uL Basophils # (Auto) 0 0-0.2 10 ^3/uL Nucleated Red Blood Cells 0.1 % Erythrocyte Sedimentation Rate Pending Prothrombin Time Pending Prothrombin Time INR Pending Activated Partial Thromboplast Time Pending Sodium Level 140 136-145 mmol/L Potassium Level 3.9 3.5-5.1 mmol/L Chloride Level 106 98-107 mmol/L Carbon Dioxide Level 25 20-31 mmol/L Anion Gap 9 5-15 Blood Urea Nitrogen 18 9-23 mg/dL Creatinine 0.79 0.550-1.02 mg/dL Glomerular Filtration Rate Calc 102 >90 mL/min BUN/Creatinine Ratio 22.8 H 10.0-20.0 Serum Glucose 107 H 74-106 mg/dL Hemoglobin A1c Pending Calcium Level 9.1 8.7-10.4 mg/dL Phosphorus Level 2.9 2.4-5.1 mg/dL Magnesium Level 1.8 1.6-2.6 mg/dL Total Bilirubin Pending Direct Bilirubin Pending Aspartate Amino Transferase (AST) Pending Alanine Aminotransferase (ALT) Pending Alkaline Phosphatase Pending C-Reactive Protein High Sensitivity 0.23 <1.0 mg/dL Total Protein Pending Albumin Pending Triglycerides Level 157 H < 150 mg/dL Cholesterol Level 180 < 200 mg/dL LDL Cholesterol 116 H < 100 mg/dL HDL Cholesterol 51 40-59 mg/dL Vitamin B12 Level Pending Vitamin D 25-Hydroxy Pending Thyroid Stimulating Hormone (TSH) Pending Beta HCG, Quantitative Pending The chest x-ray is negative. The patient's [place] [id number] The chemistry panel is within normal limits. The patient is being admitted at this time with chest pain and possible allergic reaction The patient understands and agrees with the management. Images Reviewed?: Images reviewed and evaluated by me Time of 1ST Reevaluation: 13:30 Reevaluation 1ST: Unchanged Patient Education/Counseling: Diagnosis, Treatment, Other (need for admission ) Family Education/Counseling: Diagnosis, Treatment, Other (need for admission ) SEPSIS Sepsis Screen Date sepsis recognized/suspect: Apr 13, 2025 Time Sepsis recognized/suspect: 1256 Recent Procedure: No On Antibiotic Therapy: No Respiratory Rate >20: No Heart Rate >90: No Temp<36 C (96.8 F) or >38.3 C: No SBP <90 or MAP <65 mmHG: No New Acute Mental Status Change: No Is the patient on CPAP, BIPAP,: No Physician Orders Chest Portable (04/13/25 13:04) Heplock Iv (04/13/25 13:04) Watchmaking Teacher (04/13/25 13:04) Blood Pressure (04/13/25 13:04) Pulse Oximetry (04/13/25 13:04) Urinalysis (04/13/25 13:04) Electrocardigram (04/13/25 13:04) Troponin-I Hs (04/13/25 16:04) Electrocardigram (04/13/25 14:04) Electrocardigram (04/13/25 16:04) * Cardiology Consult (04/13/25 14:35) Vital Signs Date Time Temp Pulse Resp B/P (MAP) Pulse Ox O2 Delivery O2 Flow Rate FiO2 04/13/25 14:32 49 04/13/25 14:00 49 04/13/25 13:32 52 04/13/25 12:55 52 04/13/25 12:54 98.0 52 16 124/58 98 98.0 Laboratory Tests Test 04/13/25 13:30 White Blood Count 13.0 10^3/uL (4.4-10.8) H Departure 1 Departure Time of Disposition: 15:28 Impression: Primary Impression: Acute chest pain Additional Impressions: Acute allergic reaction Qualified Codes: T78.40XA - Allergy, unspecified, initial encounter Symptomatic bradycardia Disposition: ADMITTED INPATIENT Admit to: Tele Condition: Fair Critical Care Note Critical Care Time?: No Stability Stability form required: Yes Unstable for transfer: Telemetry monitoring (Telemetry monitoring required), ED Physician Assesment (Clinical assesment) Heart Score Heart Score: Heart Score Response (Comments) Value History Moderate Suspicious 1 EKG Normal 0 Age <45 0 Risk Factors >3 or Hx ASHD 2 Troponin Normal limit 0 Total 3 I personally scribed for AYLEEN DE DIOS MD ([email or web address]) on 04/13/25 at 13:32. Electronically submitted by Santosh Ochoa ([email or web address]). I personally scribed for AYLEEN DE DIOS MD ([email or web address]) on 04/13/25 at 14:32. Electronically submitted by Santosh Ochoa [email or web address]). AYLEEN DE DIOS MD Apr 13, 2025 13:32
--- NOTE | 2025-04-13 13:46 | DVH ---
INDICATION: cp TECHNIQUE: Frontal view of the chest. COMPARISON: XY CHEST XRAY 1 VIEW on DOS: 10/05/24 FINDINGS: . The heart and mediastinal contours are grossly unremarkable. There is no evidence of pleural disease. The lungs are clear. The bony structures of the chest are intact without fracture. IMPRESSION: 1. No evidence of acute disease.
[2025-04-13 13:59] LABS: Chloride 106 mmol/L (98-107); Hematocrit 37.0 % (36.0-46.0); Hemoglobin 12.4 g/dL (12.2-16.2); Mean Corpuscular Hemoglobin 27.5 pg (28.0-32.0); Mean Corpuscular Volume 82.3 fL (80.0-100.0); Nucleated Red Blood Cells % 0.1 %; Potassium 3.9 mmol/L (3.5-5.1); Sodium 140 mmol/L (136-145)
[2025-04-13 14:00] LABS: Anion Gap 9 (5-15); Carbon Dioxide 25 mmol/L (20-31)
[2025-04-13 14:01] LABS: Calcium 9.1 mg/dL (8.7-10.4)
[2025-04-13 14:06] LABS: BUN/Creatinine Ratio 22.8 (10.0-20.0); Blood Urea Nitrogen 18 mg/dL (9-23)
[2025-04-13 14:09] LABS: Glucose 107 mg/dL (74-106)
--- NOTE | 2025-04-13 14:59 | DVHHPRES ---
History of Present Illness Resident Creating Document: CHANDNI MALIK History of Present Illness Kristen Ramesh is a 34-year-old female patient who presents to ED with chief complaint of focal, unprovoked, constant chest tightness which started 30 hours before her admission, it appears in variable functional class, associated with focal right-sided neck pain, intensity 5/10. Patient has associated dyspnea especially when she lays flat and partially improves when sitting up. Patient reports she recently was evaluated in the emergency department (04/11/2025) due to allergic reaction symptomatic by chest tightness, throat swelling and rash, to an unknown drug requiring prednisone and Benadryl, with good response. Patient also reports presenting chest pain when delivering her 6 month old offspring with diagnosis of demand ischemia on 09/2024 with normal LVEF on 09/2024, she follows Dr Latif in the outpatient setting, pending new appointment on 06/2025 to review laboratory work up. Denies any other associated symptoms. Past medical history: Gestational diabetes, hypothyroidism, Sjogren's, H. pylori (not treated due to and , she finished on 04/08/2025) Surgical history: Denies Family history: Father has heart disease. Social history: Lives in [place] with family ([place] ). Denies current tobacco, alcohol and other drug abuse. Allergies: Cephalosporins. Unknown recent reaction Home medication: T 50 ug PO daily, prednisone, Benadryl, planning on beginning treatment for H. Pylori. PAtient seen and examined at bedside. Currently blanco s no new complains. Patient admitted for further evaluation. Cardiology was consulted by ED provider for eventual ischemic work-up. Past Medical History Per HPI Past Surgical History Per HPI Family History Per HPI Past Social History Per HPI Review of Systems Review of Systems Per HPI Allergies: Coded Allergies: Cephalosporins (Verified Allergy, Intermediate, 10/04/24) Medications Current Medications Medications Dose Ordered Sig/Isaias Route Start Time Stop Time Status Last Admin Dose Admin Acetaminophen 325 mg Q4HP PRN PO 04/13/25 15:00 UNV Ondansetron HCl 4 mg Q4HP PRN IV 04/13/25 15:00 UNV Enoxaparin Sodium 40 mg DAILY SC 04/14/25 10:00 UNV Nitroglycerin 0.4 mg Q5MINP PRN SL 04/13/25 15:00 UNV Morphine Sulfate 2 mg Q30M PRN IV 04/13/25 15:00 UNV Al Hydrox/Mg Hydrox/Simethicone 30 ml QIDPRN PRN PO 04/13/25 15:00 UNV Levothyroxine Sodium 50 mcg DAILY PO 04/14/25 10:00 UNV Atorvastatin Calcium 40 mg HS PO 04/13/25 22:00 UNV Aspirin 81 mg DAILY PO 04/14/25 10:00 UNV Exam Vital Signs Vital Signs Date Time Temp Pulse Resp B/P (MAP) Pulse Ox O2 Delivery O2 Flow Rate FiO2 04/13/25 14:32 49 04/13/25 12:54 98.0 16 124/58 98 98.0 Exam Patient lying in bed, in no acute distress General: Lucid, afebrile, mucosae are moist Cardiovascular: Normal S1 and S2. No murmurs, gallops or rubs Respiratory: Normal ventilation mechanics. Clear lung sounds on auscultation Abdomen: Soft, nontender, no organomegaly, normal bowel sounds MSK/skin: Mobilizes 4 limbs. Skin is dry and warm Neurological: Oriented in 3 spheres. No motor no sensitive deficits. Pupils are isocoric and reactive Labs/Xrays Labs Test 04/13/25 14:18 04/13/25 13:30 Range/Units White Blood Count 13.0 H 4.4-10.8 10^3/uL Red Blood Count 4.50 4.0-5.20 10^6/uL Hemoglobin 12.4 12.2-16.2 g/dL Hematocrit 37.0 36.0-46.0 % Mean Corpuscular Volume 82.3 80.0-100.0 fL Mean Corpuscular Hemoglobin 27.5 L 28.0-32.0 pg Mean Corpuscular Hemoglobin Concent 33.4 32.0-36.0 g/dL Red Cell Distribution Width 15.3 H 11.8-14.3 % Platelet Count 391 140-450 10^3/uL Mean Platelet Volume 7.3 6.9-10.8 fL Neutrophils (%) (Auto) 76.0 37.0-80.0 % Lymphocytes (%) (Auto) 19.7 10.0-50.0 % Monocytes (%) (Auto) 4.1 0.0-12.0 % Eosinophils (%) (Auto) 0.1 0.0-7.0 % Basophils (%) (Auto) 0.1 0.0-2.0 % Neutrophils # (Auto) 9.9 H 1.6-8.6 10 ^3/uL Lymphocytes # (Auto) 2.6 0.4-5.4 10 ^3/uL Monocytes # (Auto) 0.5 0-1.3 10 ^3/uL Eosinophils # (Auto) 0 0-0.8 10 ^3/uL Basophils # (Auto) 0 0-0.2 10 ^3/uL Nucleated Red Blood Cells 0.1 % Sodium Level 140 136-145 mmol/L Potassium Level 3.9 3.5-5.1 mmol/L Chloride Level 106 98-107 mmol/L Carbon Dioxide Level 25 20-31 mmol/L Anion Gap 9 5-15 Blood Urea Nitrogen 18 9-23 mg/dL Creatinine 0.79 0.550-1.02 mg/dL Glomerular Filtration Rate Calc 102 >90 mL/min BUN/Creatinine Ratio 22.8 H 10.0-20.0 Serum Glucose 107 H 74-106 mg/dL Calcium Level 9.1 8.7-10.4 mg/dL SEPSIS Sepsis Screen Date sepsis recognized/suspect: Apr 13, 2025 Time Sepsis recognized/suspect: 6 Recent Procedure: No On Antibiotic Therapy: No Respiratory Rate >20: No Heart Rate >90: No Temp<36 C (96.8 F) or >38.3 C: No SBP <90 or MAP <65 mmHG: No New Acute Mental Status Change: No Is the patient on CPAP, BIPAP,: No Physician Orders Chest Portable (04/13/25 13:04) Heplock Iv (04/13/25 13:04) Backroom Associate (04/13/25 13:04) Blood Pressure (04/13/25 13:04) Pulse Oximetry (04/13/25 13:04) Urinalysis (04/13/25 13:04) Troponin-I Hs (04/13/25 14:04) Troponin-I Hs (04/13/25 16:04) Electrocardigram (04/13/25 14:04) Electrocardigram (04/13/25 16:04) * Cardiology Consult (04/13/25 14:35) Admit (04/13/25 14:47) Code Status (04/13/25 14:47) Acetaminophen Tablet (Tylenol Tablet) (04/13/25 15:00) Ondansetron Hcl (Zofran) (04/13/25 15:00) Complete Blood Count (04/14/25 04:00) Comprehensive Metabolic Panel (04/14/25 04:00) Cardiac Diet-2gna,Lofat,Lochol (04/13/25 Dinner) Echo 2d Mode Cardiac Dop (04/13/25 14:47) Enoxaparin Sodium (Lovenox) (04/14/25 10:00) Nitroglycerin Sublingual (Ntrostat Subli (04/13/25 15:00) Morphine Sulfate Injection (04/13/25 15:00) Oxygen By Nasal Cannula (04/13/25 14:47) Stat Ekg For Chest Pain (04/13/25 14:47) Notify Md Of Changes From Base (04/13/25 14:47) [employer] Driver For 24 Hours (04/13/25 14:47) Emergency Dysrhythmia Protocol (04/13/25 14:47) Rhythm Strips Once Every Shift (04/13/25 14:47) Vitamin D, 25-Hydroxy (04/13/25 14:47) Vitamin B12 (04/13/25 14:47) Urinalysis (04/13/25 14:47) Thyroid Stimulating Hormone (04/13/25 14:47) PTPTT (04/13/25 14:47) Phosphorus (04/13/25 14:47) Magnesium (04/13/25 14:47) Lipid Panel (04/13/25 14:47) Lactic Acid W/ Reflex Order (04/13/25 14:47) Hemoglobin A1c (04/13/25 14:47) Drug Screen (04/13/25 14:47) C-Reactive Protein (04/13/25 14:47) Alum & Mag Hydrox-Simethicone (Maalox Pl (04/13/25 15:00) Levothyroxine Tablet (Synthroid Tablet) (04/14/25 10:00) Beta Hcg, Quantitative (04/13/25 14:47) Erythrocyte Sedimentation Rate (04/13/25 14:47) Atorvastatin (Lipitor) (04/13/25 22:00) Aspirin Tablet (04/14/25 10:00) Vital Signs Date Time Temp Pulse Resp B/P (MAP) Pulse Ox O2 Delivery O2 Flow Rate FiO2 04/13/25 14:32 49 04/13/25 14:00 49 04/13/25 13:32 52 04/13/25 12:55 52 04/13/25 12:54 98.0 52 16 124/58 98 98.0 Laboratory Tests Test 04/13/25 13:30 White Blood Count 13.0 10^3/uL (4.4-10.8) H Assessment/Plan Assessment/Plan ASSESSMENT Rule out ACS Gastritis secondary to H. pylori Recent Anaphylaxis - on steroids Hypothyroidism Sinus bradycardia Sjogren's disease History of gestational diabetes PLAN Patient admitted to telemetry Ordered echocardiogram Cardiology consulted Troponin negative. EKG shows sinus bradycardia with no ST alteration. Constant, unprovoked, focal retrosternal chest tightness which lasted more that 30 hours. Initiated H pylori treatment (patient hold off due to and , currently is not . Continue Benadryl PRN and prednisone 5 day course. Ordered TSH Goals of care discussed with patient for over 15 minutes: Full code status Discussed plan with Dr Guallpa, patient and nurses: Admitted to telemetry. Ordered echocardiogram and consulted cardiology to evaluate ischemic work up. Initiated H. pylori treatment. Plan discussed with: Patient, Other (Nurses) My Orders Orders - CHANDNI MALIK RESIDENT Procedure Category Date Status Time Admit ADMIT 04/13/25 Transmitted 14:47 Code Status CODE 04/13/25 Transmitted 14:47 Acetaminophen Tablet PHA 04/13/25 Logged (Tylenol Tablet) 15:00 Ondansetron Hcl PHA 04/13/25 Logged (Zofran) 15:00 Complete Blood Count LAB 04/14/25 Verified 04:00 Comprehensive LAB 04/14/25 Verified Metabolic Panel 04:00 Cardiac DIET 04/13/25 Transmitted Diet-2gna,Lofat,Lochol Dinner Echo 2d Mode Cardiac US 04/13/25 Logged DOP 14:47 Enoxaparin Sodium PHA 04/14/25 Logged (Lovenox) 10:00 Nitroglycerin PHA 04/13/25 Transmitted Sublingual (Ntrostat 15:00 Morphine Sulfate PHA 04/13/25 Logged Injection 15:00 Oxygen By Nasal RT 04/13/25 Transmitted Cannula 14:47 Stat Ekg For Chest [facility] 04/13/25 In Process Pain 14:47 Notify Of Changes [facility] 04/13/25 In Process From Base 14:47 [employer] Driver For [facility] 04/13/25 In Process 24 Hours 14:47 Emergency Dysrhythmia [facility] 04/13/25 In Process Protocol 14:47 Rhythm Strips Once [facility] 04/13/25 In Process Every Shift 14:47 Vitamin D, 25-Hydroxy LAB 04/13/25 Logged 14:47 Vitamin B12 LAB 04/13/25 Logged 14:47 Urinalysis LAB 04/13/25 Logged 14:47 Thyroid Stimulating LAB 04/13/25 Logged Hormone 14:47 PTPTT LAB 04/13/25 Logged 14:47 Phosphorus LAB 04/13/25 Logged 14:47 Magnesium LAB 04/13/25 Logged 14:47 Lipid Panel LAB 04/13/25 Logged 14:47 Lactic Acid W/ Reflex LAB 04/13/25 Logged Order 14:47 Hemoglobin A1c LAB 04/13/25 Logged 14:47 Drug Screen LAB 04/13/25 Logged 14:47 C-Reactive Protein LAB 04/13/25 Logged 14:47 Alum & Mag PHA 04/13/25 Logged Hydrox-Simethicone 15:00 Levothyroxine Tablet PHA 04/14/25 Logged (Synthroid Tablet) 10:00 Beta Hcg, Quantitative LAB 04/13/25 Logged 14:47 Erythrocyte LAB 04/13/25 Logged Sedimentation Rate 14:47 Atorvastatin (Lipitor) PHA 04/13/25 Logged 22:00 Aspirin Tablet PHA 04/14/25 Logged 10:00 Date of Service: Apr 13, 2025 Billing Provider: BETH GUALLPA MD Common Visit Codes: [id number] INP/OBS CARE (HIGH) Secondary Visit Codes: [id number] CARE PLAN 30 MINUTES CHANDNI MALIK Apr 13, 2025 14:58
[2025-04-13] MEDS ORDERED: ONDANSETRON HCL 4 MG/2 ML VIAL IV PRN (15:00)
[2025-04-13] MEDS ORDERED: MORPHINE SULFATE INJ 2 MG/ml SYRG IV PRN (15:00)
[2025-04-13] MEDS ORDERED: NITROGLYCERIN 0.4 MG SL TAB SL PRN (15:00)
[2025-04-13] MEDS ORDERED: ACETAMINOPHEN 325 MG TAB PO PRN (15:00)
[2025-04-13] MEDS ORDERED: ALUM & MAG HYDROX-SIMETH LIQ(MAALOX) 30 ML PO PRN (15:00)
[2025-04-13 15:18] LABS: Magnesium 1.8 mg/dL (1.6-2.6)
[2025-04-13 15:19] LABS: Cholesterol 180.0 mg/dL (< 200); HDL Cholesterol 51.0 mg/dL (40-59)
[2025-04-13 15:20] LABS: Triglycerides 157.0 mg/dL (< 150)
[2025-04-13 15:34] LABS: INR 0.96 (0.9-1.15); Partial Thromboplastin Time 26.2 SEC (24.5-34.5); Prothrombin Time 10.2 sec (9.3-11.8)
[2025-04-13 15:47] LABS: Alanine Aminotransferase 17 U/L (7-40); Albumin 4.4 g/dL (3.2-4.8); Alkaline Phosphatase 75 U/L (46-116)
[2025-04-13 15:48] LABS: Bilirubin, Direct < 0.1 mg/dL (<0.3); Bilirubin, Total 0.2 mg/dL (0.2-1.0); Total Protein 8.2 g/dL (5.7-8.2)
[2025-04-13 15:58] VITALS: PULSE 45
--- NOTE | 2025-04-13 17:40 | DVHINCON2 ---
Date Seen: Apr 13, 2025 Referring Physician MD Jaspal Reason for Consultation Chest pain and bradycardia History of Present Illness This is a 34-year-old female patient who presents to emergency room with chief complaint of chest pain. The patient reports that the chest pain began approxi mately two days ago. She describes the pain as unprovoked, constant, tight in nature, midsternal with radiation to her left right region. She denies any aggravating or alleviating factors including positional changes. The patient states that prior to the chest pain she broke out in generalized hives after a possible allergic reaction. Since then, she reports feeling constant chest pain. Cardiology has been consulted at this time for the chest pain as well as bradycardia. Initial twelve lead electrocardiogram reveals sinus bradycardia without any significant ST segment changes. Troponin levels have been negative. Significant past medical history includes anemia, hypothyroidism, Sjogren's syndrome, H pylori, and significant family cardiac history (father had CABG). The patient states that she has seen dairy store manager in the outpatient setting. Past Medical History Past medical history reviewed. No other significant than mentioned above. Past Surgical History Denies any previous surgeries Family History Family history reviewed. Social History Denies the use of tobacco, alcohol or illicit drugs. Allergies: Coded Allergies: Cephalosporins (Verified Allergy, Intermediate, 10/04/24) Home Meds Active Scripts Diphenhydramine Hcl (Benadryl Allergy) 25 Mg Cap, 2 CAP PO Q6HPRN, #30 CAP 0 Refills Prov:DEMAR PENNY 04/11/25 Prednisone (Prednisone) 20 Mg Tab, 20 MG PO BID for 5 Days, #10 TAB 0 Refills Prov:DEMAR PENNY 04/11/25 Alum & Mag Hydrox-Simethicone (Maalox Plus) 30 Ml Ss, 30 ML PO QIDPRN PRN for 30 Days, #1200 ML Prov:HAWA HERNANDEZ MD 10/06/24 Levothyroxine Sodium (SYNTHROID TABLET) 50 Mcg Tb, 1 TAB PO DAILY, #90 TAB 0 Refills generic substitute okay Prov:ASHLEY MCCLELLAND CNM 10/05/24 Ibuprofen (Ibuprofen) 800 Mg Tab, 1 TAB PO TID, #90 TAB Prov:ASHLEY MCCLELLAND CNM 10/05/24 Reported Medications Vit W/ Ferrous Fumara ( One Daily) Daily Tab, 1 TAB PO DAILY, #90 TAB 3 Refills 08/15/24 Home Meds Home medications reviewed. Current Medications Current Medications Medications (Trade) Dose Ordered Sig/Isaias Route PRN Reason Start Time Stop Time Status Last Admin Acetaminophen (Tylenol Tablet) 325 mg Q4HP PRN PO MILD PAIN (1-3 PAIN SCALE) 04/13/25 15:00 Ondansetron HCl (Zofran) 4 mg Q4HP PRN IV NAUSEA / VOMITING 04/13/25 15:00 Enoxaparin Sodium (Lovenox) 40 mg DAILY SC 04/14/25 10:00 Nitroglycerin (Ntrostat Sublingual) 0.4 mg Q5MINP PRN SL FOR CHEST PAIN 04/13/25 15:00 Morphine Sulfate 2 mg Q30M PRN IV FOR CHEST PAIN 04/13/25 15:00 Al Hydrox/Mg Hydrox/Simethicone (Maalox Plus) 30 ml QIDPRN PRN PO NAUSEA / VOMITING 04/13/25 15:00 04/13/25 15:15 DC Levothyroxine Sodium (Synthroid Tablet) 50 mcg DAILY@0600 PO 04/14/25 10:00 Atorvastatin Calcium (Lipitor) 40 mg HS PO 04/13/25 22:00 Aspirin 81 mg DAILY PO 04/14/25 10:00 Review of Systems Constitutional: No symptom reported Ears, Nose, & Throat: No symptom reported Eyes: No symptom reported Neurological: No symptoms reported Pulmonary/Respiratory: No symptoms reported Cardiovascular: Chest pain Gastrointestinal: No symptom reported Genitourinary: No symptom reported Musculoskeletal: No symptom reported Skin: No symptom reported Psychiatric: No symptom reported Endocrine: No symptom reported Hematologic/Lymphatic: No symptom reported Vital Signs Vital Signs Date Time Temp Pulse Resp B/P (MAP) Pulse Ox O2 Delivery O2 Flow Rate FiO2 04/13/25 14:32 49 04/13/25 12:54 98.0 16 124/58 98 98.0 Physical Exam General Appearance: Cooperative. Well-developed. Well-nourished. No acute distress. Pulmonary/Respiratory: Clear, bilateral breaths sounds. Cardiovascular/Chest: Regular rate and rhythm. Peripheral Pulses: 2+ Radial (R). 2+ Radial (L). 2+ Pedal (R). 2+ Pedal (L) Abdominal Exam: Normal bowel sounds. Ankle Exam: Negative ankle edema Lower extremities: Negative lower extremity edema Neuro/Mental Status: A/OX4, coherent. Thoughts/Psych: Normal thought pattern. Appropriate mood and affect. Good judgment and insight. Appearance: No acute distress. Skin Exam: Normal inspection. Normal color. Warm and dry. Labs/Diagnostic Data Labs Test 04/13/25 17:05 04/13/25 15:30 04/13/25 14:18 04/13/25 13:30 Range/Units Lactic Acid Level 0.7 0.4-2.0 mmol/L Troponin I High Sensitivity < 3 L </=34 ng/L White Blood Count 13.0 H 4.4-10.8 10^3/uL Red Blood Count 4.50 4.0-5.20 10^6/uL Hemoglobin 12.4 12.2-16.2 g/dL Hematocrit 37.0 36.0-46.0 % Mean Corpuscular Volume 82.3 80.0-100.0 fL Mean Corpuscular Hemoglobin 27.5 L 28.0-32.0 pg Mean Corpuscular Hemoglobin Concent 33.4 32.0-36.0 g/dL Red Cell Distribution Width 15.3 H 11.8-14.3 % Platelet Count 391 140-450 10^3/uL Mean Platelet Volume 7.3 6.9-10.8 fL Neutrophils (%) (Auto) 76.0 37.0-80.0 % Lymphocytes (%) (Auto) 19.7 10.0-50.0 % Monocytes (%) (Auto) 4.1 0.0-12.0 % Eosinophils (%) (Auto) 0.1 0.0-7.0 % Basophils (%) (Auto) 0.1 0.0-2.0 % Neutrophils # (Auto) 9.9 H 1.6-8.6 10 ^3/uL Lymphocytes # (Auto) 2.6 0.4-5.4 10 ^3/uL Monocytes # (Auto) 0.5 0-1.3 10 ^3/uL Eosinophils # (Auto) 0 0-0.8 10 ^3/uL Basophils # (Auto) 0 0-0.2 10 ^3/uL Nucleated Red Blood Cells 0.1 % Erythrocyte Sedimentation Rate 25 H 0-20 mm/hr Prothrombin Time 10.2 9.3-11.8 sec Prothrombin Time INR 0.96 0.9-1.15 Activated Partial Thromboplast Time 26.2 24.5-34.5 SEC Sodium Level 140 136-145 mmol/L Potassium Level 3.9 3.5-5.1 mmol/L Chloride Level 106 98-107 mmol/L Carbon Dioxide Level 25 20-31 mmol/L Anion Gap 9 5-15 Blood Urea Nitrogen 18 9-23 mg/dL Creatinine 0.79 0.550-1.02 mg/dL Glomerular Filtration Rate Calc 102 >90 mL/min BUN/Creatinine Ratio 22.8 H 10.0-20.0 Serum Glucose 107 H 74-106 mg/dL Hemoglobin A1c 5.4 <5.7 % A1C Calcium Level 9.1 8.7-10.4 mg/dL Phosphorus Level 2.9 2.4-5.1 mg/dL Magnesium Level 1.8 1.6-2.6 mg/dL Total Bilirubin 0.2 0.2-1.0 mg/dL Direct Bilirubin < 0.1 <0.3 mg/dL Aspartate Amino Transferase (AST) 18 13-40 U/L Alanine Aminotransferase (ALT) 17 7-40 U/L Alkaline Phosphatase 75 46-116 U/L C-Reactive Protein High Sensitivity 0.23 <1.0 mg/dL Total Protein 8.2 5.7-8.2 g/dL Albumin 4.4 3.2-4.8 g/dL Triglycerides Level 157 H < 150 mg/dL Cholesterol Level 180 < 200 mg/dL LDL Cholesterol 116 H < 100 mg/dL HDL Cholesterol 51 40-59 mg/dL Vitamin B12 Level 548 211-911 pg/mL Vitamin D 25-Hydroxy 29.1 L 30.0-100 ng/mL Thyroid Stimulating Hormone (TSH) 0.13 L 0.55-4.78 uIU/mL Beta HCG, Quantitative 0.7 L 1.5-4.2 mIU/mL Assessment Chest pain, rule out coronary artery disease Sinus bradycardia without atrioventricular blocks or pauses Rule out structural heart disease Dyslipidemia, newly diagnosed Thyroid disease Sjogren's syndrome History of anemia Significant familial cardiac history Plan/Recommendation We will continue with the following plan/recommendations (Dr. Latif): Case reviewed and discussed with . We will obtain a transthoracic echocardiogram to evaluate cardiac function. The patient sees dairy store manager in the outpatient setting. The patient has had multiple episodes of chest pain in the past with no previous workup. The patient does mention a significant family history of coronary artery disease including her father who underwent a CABG. The patient was offered a coronary angiogram versus CCTA. Both procedures were discussed in full detail. The patient expressed that she would like to undergo a CCTA as it is less invasive. The patient also mentioned that she may not be able to stay until 04/16/25 when CCTA is available given that she has a 6-month-old child at home. The patient mentioned that she would like to leave at this time and come back for CCTA. Patient educated that if she leaves, she would have to come back through the emergency room and restart the admission process. Patient verbalized understanding and states that she is going to talk with her . Plans for CCTA on Wednesday if patient is willing to stay. Continue with close cardiac surveillance. Avoid AV jeff blocking agents. Continue with single antiplatelet therapy and lipid-lowering agent. Thank you for allowing us to care for this patient. Please call with any questions or concerns. Critical care time spent: 44 minutes This medical document was created using an electronic medical record system with voice recognition software and computerized dictation system. Although this document has been carefully reviewed, there might still be some phonetic and typographical errors. Occasional wrong-word or ``sound-alike substitutions may have occurred due to the inherent limitations of voice recognition software. These areas are purely typographical due to imperfections of the software programs and do not reflect any compromise in the patient's medical care. Please read the chart carefully and recognize, using context, where these substitutions have occurred. Plan discussed with: Patient NYHA Physical activity limitations: NA Date of Service: Apr 13, 2025 Billing Provider: HENRY PARKER Cardiology Common Codes: 11157-VPADRLW INP/OBS CARE (High) Cardiology Consultation Codes: 25720-DYAERCTSW CONSULT <45MIN HENRY PARKER Apr 13, 2025 17:40
[2025-04-13 17:45] LABS: Urine Protein, UAD Negative (Negative)
[2025-04-13 17:57] LABS: Amphetamine Screen, Urine Neg (NEGATIVE); Barbiturate Scree,Urine Neg (NEGATIVE); Benzodiazephine Screen, Urine Neg (NEGATIVE); Cannabinoid Screen, Urine Neg (NEGATIVE); Cocaine Screen, Urine Neg (NEGATIVE); Opiate Scree,Urine Neg (NEGATIVE); Phencyclidine Screen, Urine Neg (NEGATIVE)
[2025-04-13] MEDS: FAMOTIDINE (10MG/ML) 2ML VL IV ONE (18:23)
[2025-04-13] MEDS: FEXOFENADINE HCL 60 MG TAB PO SCH (18:23)
[2025-04-13] MEDS ORDERED: AMOXICILLIN TRIHYDRATE 250 MG CAP PO ONE (19:30)
[2025-04-13] MEDS ORDERED: metroNIDAZOLE 500 MG TAB PO ONE (19:30)
[2025-04-13] MEDS ORDERED: PANTOPRAZOLE 40 MG/10 ML VIAL INJ IV ONE (19:30)
[2025-04-13] MEDS ORDERED: diphenhydrAMINE HCL 50 MG/1 ML VL IV PRN (19:30)
[2025-04-13 19:49] LABS: Free T4 (Free Thyroxine) 1.13 ng/dL (0.89-1.76)
[2025-04-13] MEDS ORDERED: PANTOPRAZOLE 40 MG/10 ML VIAL INJ IV SCH (22:00)
[2025-04-13] MEDS ORDERED: AMOXICILLIN TRIHYDRATE 250 MG CAP PO SCH (22:00)
[2025-04-13] MEDS ORDERED: metroNIDAZOLE 500 MG TAB PO SCH (22:00)
[2025-04-13] MEDS ORDERED: ATORVASTATIN 20 MG TAB PO SCH (22:00)
[2025-04-14] MEDS ORDERED: LEVOTHYROXINE SODIUM 50 MCG TAB PO SCH (10:00)
[2025-04-14] MEDS ORDERED: ENOXAPARIN SOD 40 MG/0.4 ML SYRINGE SC SCH (10:00)
[2025-04-14] MEDS ORDERED: predniSONE 20 MG TAB PO SCH (10:00)
--- NOTE | 2025-04-14 12:01 | DVHSR ---
APPROVED REPORT EXAM: Two-dimensional and M-mode echocardiogram with Doppler and color Doppler. Blood Pressure: 124/58 mmHg INDICATION Chest Pain RISK FACTORS Height: 63, Weight: 178 DIMENSIONS LVDd 3.7 (3.8-5.7cm) LA (2D) 3.3 (1.9-4.0cm) Aortic Root 3.0 (2.0-3.7cm) LVDs 2.5 (2.5-4.0cm) LA (MM) (1.9-4.0cm) Aortic Cusp Exc 1.6 (1.5-2.0cm) EF (%) 63.0 (55-70%) Rt. Atrium 3.3 (1.9-4.0cm) Asc. Aorta cm IVSd 0.9 (0.7-1.1cm) RV (D) (1.8-2.4cm) PWd 1.0 (0.7-1.1cm) Mitral Valve Mitral Mitral Stenosis E wave 0.98m/s MV Mean GR. mmHg A wave 0.66m/s MV Peak GR. mmHg E/A ratio 1.5 2D MVA cm2 DECEL Time 202ms PRESS 1/2 Time 92ms IVRT ms Dop MVA 2.39cm2 Aortic Valve Aortic Valve Aortic Stenosis V1 1.11m/s AO Mean GR. 5mmHg V2 1.58m/s AO Peak GR. 10mmHg LVOT Diameter 2.0 (1.8-2.4cm) Doppler SAMANTA 2.21cm2 Pulmonic Valve V2 1.11m/s Tricuspid Valve TR Velocity 2.04m/s RVSP 25mmHg Conclusion Technically good study. Sinus rhythm. Normal chamber sizes. Valves are normal. EF of 60% with normal RV function. Dopplers unremarkable. No pericardial effusion masses or vegetations.
--- NOTE | 2025-04-15 01:23 | ECG ---
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
== END 2025-04-13 19:27 | disposition left against medical advice (07) | DRG 303 ==
LOC: ER 12:49 → OVERFLOW 14:47
PROVIDERS: ADMIT Student in an Organized Health Care Education/Training Program; ATTEND Emergency Medicine
DX: I25.10 Atherosclerotic heart disease of native coronary artery without angina pectoris (principal); B96.81 Helicobacter pylori [H. pylori] as the cause of diseases classified elsewhere; E03.9 Hypothyroidism, unspecified; M35.00 Sjogren syndrome, unspecified; K29.70 Gastritis, unspecified, without bleeding; E78.5 Hyperlipidemia, unspecified; Z53.29 Procedure and treatment not carried out because of patient's decision for other reasons; Z82.3 Family history of stroke; Z82.49 Family history of ischemic heart disease and other diseases of the circulatory system; Z88.1 Allergy status to other antibiotic agents
CPT/HCPCS: 36415; 71045; 80048; 80061; 80076; 80307; 81001; 82306; 82607; 83036; 83605; 83735; 84100; 84439; 84443; 84480; 84484; 84702; 85025; 85610; 85652; 85730; 86141; 93005; 93306; G0378; J3490

== ENCOUNTER 2025-04-16 11:08 | Outpatient (CLI) | payer BC | END 2025-04-16 17:00 | disposition home or self-care (01) | LOC: LAB 11:08 | PROVIDERS: ATTEND Internal Medicine | DX: E06.3 Autoimmune thyroiditis (principal); K21.9 Gastro-esophageal reflux disease without esophagitis; N39.0 Urinary tract infection, site not specified | CPT/HCPCS: 36415; 84484; 85379; 85652; 86003; 86141; 87086 ==